=== PATIENT | female | born 1965 | race Caucasian/White ===

== ENCOUNTER 2019-06-29 15:24 | Outpatient (CLI) | payer MEDICARE, OTHER, SELFPAY ==
--- NOTE | ~2019-06-29 | XR_ITS ---
EXAMINATION:XR_CERV2-3V_CR DATE: 06/29/2019 15:59 INDICATION: Neck pain TECHNIQUE: AP, lateral, lateral swimmers and odontoid views of the cervical spine are provided. COMPARISON: None FINDINGS: Alignment is normal. The odontoid is intact. No fracture is identified. Vertebral body heig hts and disk spaces are normal. Prevertebral soft tissues are normal. There is moderate facet osteoar thritis throughout the cervical spine. IMPRESSION: 1. Mild cervical spondylosis without acute findings. Reviewed, dictated and finalized at location A.
== END 2019-06-29 15:25 | disposition home or self-care (01) ==
LOC: CHSIMG 15:29
PROVIDERS: PCP Internal Medicine; Visit Provider Internal Medicine
DX: E07.89 Other specified disorders of thyroid (principal); R13.10 Dysphagia, unspecified; M54.2 Cervicalgia
CPT/HCPCS: 72040

== ENCOUNTER 2019-07-03 07:59 | Outpatient (CLI) | payer MEDICARE, OTHER, SELFPAY ==
--- NOTE | ~2019-07-03 | US_ITS ---
EXAMINATION: US thyroid DATE: 07/03/2019 08:38 INDICATION: Thyroid mass TECHNIQUE: Multiple ultrasound images of the thyroid were obtained. COMPARISON: 05/05/2015 FINDINGS: The right thyroid lobe measures 4.2 x 1.6 x 1.8 cm. The left thyroid lobe measures 3.9 x 1.7 x 1.4 c m. No significant change in multiple small bilateral thyroid nodules. These include a TI RADS 1, 10 mm predominantly cystic nodule in the right thyroid, a couple smaller mixed solid and cystic nodules with microcalcifications (TI-RADS 4, moderately suspicious , FNA if >=1.5 cm, annual followup is >1 c m) measuring 10 mm at the thyroid isthmus and 6 mm in the right thyroid and a few solid hypoechoic no dule without echogenic foci, also TI-RADS 4 measuring up to 4 mm in maximal diameter in the left thyr oid lobe and 7 mm at the right side of the thyroid isthmus. IMPRESSION: 1. No significant interval change in a multinodular goiter, likely benign with no nodules meeting cri teria for biopsy or follow-up. Reviewed, dictated and finalized at location A. IMPRESSION: 1. No significant interval change in a multinodular goiter, likely benign with no nodules meeting criteria for biopsy or follow-up.
== END 2019-07-03 08:00 | disposition home or self-care (01) ==
LOC: CHSIMG 08:04
PROVIDERS: PCP Internal Medicine; Visit Provider Internal Medicine
DX: E07.89 Other specified disorders of thyroid (principal); R13.10 Dysphagia, unspecified; M54.2 Cervicalgia
CPT/HCPCS: 76536

== ENCOUNTER 2019-11-12 15:57 | Outpatient (CLI) | payer MEDICARE, OTHER, SELFPAY ==
--- NOTE | ~2019-11-12 | XR_ITS ---
EXAMINATION: XR hand LT min 3V, XR hand RT min 3V DATE: 11/12/2019 16:31 INDICATION: Primary generalized osteoarthritis. Paresthesias at the bilateral hands. TECHNIQUE: 1. Posteroanterior, oblique and lateral views of the right hand were obtained. 2. Posteroanterior, oblique and lateral views of the left hand were obtained. COMPARISON: None. FINDINGS: Alignment is normal. No fracture. Minimal to mild polyarticular osteoarthritis with typical distribut ion at the radial aspect of the carpus and interphalangeal joints, most prominent at the distal inter phalangeal joints. No erosions to suggest an inflammatory arthritis. Soft tissues are unremarkable. IMPRESSION: 1. Relatively symmetric pattern of minimal to mild polyarticular osteoarthritis with typical distal i nterphalangeal joint predominance at both hands. Reviewed, dictated and finalized at location B. IMPRESSION: 1. Relatively symmetric pattern of minimal to mild polyarticular osteoarthritis with typical distal interphalangeal joint predominance at both hands.
== END 2019-11-12 15:58 | disposition home or self-care (01) ==
PROVIDERS: PCP Internal Medicine; Visit Provider Internal Medicine
DX: M15.0 Primary generalized (osteo)arthritis (principal); R20.2 Paresthesia of skin
CPT/HCPCS: 73130

== ENCOUNTER 2020-10-06 15:45 | Outpatient (CLI) | payer MEDICARE, SELFPAY ==
--- NOTE | ~2020-10-06 | XR_ITS ---
XR lumbar spine 2-3V 10/06/2020 16:23 Indication: Low back pain for 4 days Procedure: 3 views lumbar spine Comparison: 05/17/2011 Findings: There is levocurvature of the lumbar spine. Vertebral body heights are maintained. There ar e surgical changes of anterior and posterior fusion at L4-S1. No evidence for lucency surrounding the screws. There is healed bone graft posterior lateral on both sides. No acute fracture or traumatic m alalignment. Sacral foramen are symmetric. There is bone graft donor site left ilium. Impression: 1: No acute abnormality of the lumbar spine. No significant change from 04/18/2011 Allowing differences of technique. Reviewed, dictated and finalized at location A. Impression: 1: No acute abnormality of the lumbar spine. No significant change from 012 Allowing differences of technique.
[2020-10-06 16:36] LABS: Add Urine Microscopic? YES; Appearance Urine Sl Cloudy (Clear); Basophils Absolute Auto 0.02 K/mm3 (0.00-0.10); Basophils Percent Auto 0.2 % (0.0-1.0); Bilirubin Urine 1+ (Negative); Blood Urine Negative (Negative); Color Urine Yellow (Yellow); Eosinophils Absolute Auto 0.09 K/mm3 (0.02-0.50); Eosinophils Percent Auto 1.1 % (1.0-6.0); Glucose Urine UA Negative (Negative); Hematocrit 39.7 % (35.0-49.0); Hemoglobin 12.5 g/dL (12.0-15.0); Immature Granulocyte Absolute 0.03 K/mm3 (0.00-0.00); Immature Granulocyte Percent A 0.4 % (0.0-0.0); Ketones Urine Negative (Negative); Leukocyte Esterase Ur Negative LEU/UL (Negative); Lymphocytes Absolute Auto 2.36 K/mm3 (1.10-4.50); Lymphocytes Percent Auto 28.5 % (18.0-42.0); Mean Corpuscular HGB Conc 31.5 g/dL (32.0-36.0); Mean Corpuscular Hemoglobin 27.7 pg (27.0-31.0); Mean Corpuscular Volume 87.8 fL (78.0-102.0); Mean Platelet Volume 10.6 fl (9.2-11.8); Monocytes Absolute Auto 0.72 K/mm3 (0.10-0.90); Monocytes Percent Auto 8.7 % (2.0-11.0); Neutrophils Absolute Auto 5.1 K/mm3 (1.7-7.2); Neutrophils Percent Auto 61.1 % (50.0-70.0); Nitrate Urine Negative (Negative); Platelet Count Result 297 K/mm3 (150-420); Protein Urine Trace (Negative); Red Blood Count 4.52 M/mm3 (4.20-5.40); Red Cell Distribution Width 13.7 % (11.6-14.4); Specific Grav Ur >= 1.030 (1.010-1.020); Urobilinogen Urine 0.2 mg/dL (0.2-1.0); White Blood Count 8.3 K/mm3 (4.8-10.8); pH Urine 5.5 (5.0-8.0)
[2020-10-06 16:42] LABS: Bacteria Urine 2+ /hpf; Mucus Urine Heavy /lpf; Squamous Epithelial Cell Urine Moderate /hpf (Few)
[2020-10-06 18:09] LABS: Alanine Aminotransferase 19 U/L (14-59); Albumin Level 3.3 g/dL (3.4-5.0); Alkaline Phosphatase 74 U/L (46-116); Anion Gap 12 mmol/L (8-16); Aspartate Amino Transferase 11 U/L (15-37); Bilirubin,Total 0.4 mg/dL (0.00-1.00); Blood Urea Nitrogen 12 mg/dL (7-18); CRP 0.9 mg/dL (0.0-0.9); Calcium 8.5 mg/dL (8.5-10.1); Carbon Dioxide 25 mmol/L (21-32); Chloride 105 mmol/L (98-108); Estimated Glomerular Filt Rate > 60; Glucose 87 mg/dL (70-99); Osmolality Calculated 292 mOsm/kg (285-295); Potassium 4.2 mmol/L (3.5-5.1); Sodium 142 mmol/L (136-145); Total Protein 6.3 g/dL (6.4-8.2)
== END 2020-10-06 15:46 | disposition home or self-care (01) ==
LOC: CHSLAB 15:48
PROVIDERS: PCP Internal Medicine; Visit Provider Internal Medicine
DX: M54.9 Dorsalgia, unspecified (principal)
CPT/HCPCS: 36415; 72100; 80053; 81001; 85025; 86140

== ENCOUNTER 2020-10-08 09:41 | Outpatient (CLI) | payer MEDICARE, OTHER, SELFPAY ==
--- NOTE | ~2020-10-08 | CT_ITS ---
EXAMINATION: CT abdomen pelvis wo con DATE: 10/08/2020 10:20 INDICATION: Microscopic hematuria, left flank pain TECHNIQUE: Computed tomography (CT) of the abdomen and pelvis was performed without intravenous contr ast. The dose-length product (DLP) was 960.91 mGy-cm. Automated exposure control and iterative recons truction technique were employed. COMPARISON: 06/01/2006 FINDINGS: The lung bases are clear. The heart size is normal. There are small, chronic pleural effusi ons. A tiny pericardial effusion is noted. There is a small sliding hiatal hernia. Within the limitat ions of noncontrast examination, the liver, spleen pancreas, gallbladder, and adrenal glands are norm al. The kidneys are unremarkable. No stones are identified in the kidneys, ureters, or bladder. There is no hydronephrosis or hydroureter. No pathologically enlarged abdominal or pelvic lymph nodes are identified. There is no free intraperitoneal gas or evidence of bowel obstruction. Uterine fibroids a re again noted. A moderate volume of colonic stool is present. There are changes of anterior and post erior fusion from L4 through S1. IMPRESSION: 1. No CT correlate for the patient's symptoms. Reviewed, dictated and finalized at location A.
== END 2020-10-08 09:42 | disposition home or self-care (01) ==
LOC: CHSIMG 09:46
PROVIDERS: PCP Internal Medicine; Visit Provider Internal Medicine
DX: R31.9 Hematuria, unspecified (principal); R10.9 Unspecified abdominal pain
CPT/HCPCS: 74176

== ENCOUNTER 2021-05-21 08:04 | Outpatient (CLI) | payer MEDICARE, OTHER, SELFPAY ==
--- NOTE | ~2021-05-21 | US_ITS ---
EXAMINATION: US pelvic complete w TV DATE: 05/21/2021 09:17 INDICATION: Left lower quadrant pain TECHNIQUE: Multiple transabdominal and endovaginal sonographic images of the pelvis were obtained. COMPARISON: CT, 10/08/2020 FINDINGS: Uterus didelphys is noted. The right uterus measures 6.2 x 2.6 x 3.2 cm with an endometrial complex thickness of 5 mm. The left uterus measures 8.9 x 3.4 x 3.6 cm with an endometrial complex t hickness of 9 mm. There is apparent soft tissue density in the left endocervical canal with internal vascularity. The ovaries are not visualized however no adnexal abnormality is seen. There is no free fluid in the pelvis. IMPRESSION: 1. No sonographic correlate for the patient's symptoms. 2. 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 DEADENER e valuation is recommended. Reviewed, dictated and finalized at location B. [employer]ER IMPRESSION: 1. No sonographic correlate for the patient's symptoms. 2. 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 DEADENER evaluation is recommended.
[2021-05-21 08:21] LABS: Basophils Absolute Auto 0.02 K/mm3 (0.00-0.10); Basophils Percent Auto 0.3 % (0.0-1.0); Eosinophils Absolute Auto 0.11 K/mm3 (0.02-0.50); Eosinophils Percent Auto 1.9 % (1.0-6.0); Hematocrit 40.2 % (35.0-49.0); Hemoglobin 12.4 g/dL (12.0-15.0); Immature Granulocyte Absolute 0.01 K/mm3 (0.00-0.00); Immature Granulocyte Percent A 0.2 % (0.0-0.0); Lymphocytes Absolute Auto 1.77 K/mm3 (1.10-4.50); Lymphocytes Percent Auto 30.6 % (18.0-42.0); Mean Corpuscular HGB Conc 30.8 g/dL (32.0-36.0); Mean Corpuscular Hemoglobin 27.1 pg (27.0-31.0); Monocytes Absolute Auto 0.41 K/mm3 (0.10-0.90); Monocytes Percent Auto 7.1 % (2.0-11.0); Neutrophils Absolute Auto 3.5 K/mm3 (1.7-7.2); Neutrophils Percent Auto 59.9 % (50.0-70.0); Platelet Count Result 330 K/mm3 (150-420); Red Blood Count 4.57 M/mm3 (4.20-5.40); Red Cell Distribution Width 14.3 % (11.6-14.4); White Blood Count 5.8 K/mm3 (4.8-10.8)
[2021-05-21 09:14] LABS: Add Urine Microscopic? NO; Appearance Urine Clear (Clear); Bilirubin Urine Negative (Negative); Blood Urine Negative (Negative); Color Urine Yellow (Yellow); Glucose Urine UA Negative (Negative); Ketones Urine Negative (Negative); Leukocyte Esterase Ur Negative (Negative); Nitrate Urine Negative (Negative); Protein Urine Negative (Negative); Specific Grav Ur 1.015 (1.010-1.020); Urobilinogen Urine 0.2 mg/dL (0.2-1.0); pH Urine 7.5 (5.0-8.0)
[2021-05-21 09:17] LABS: Alanine Aminotransferase 22 U/L (14-59); Albumin Level 3.3 g/dL (3.4-5.0); Alkaline Phosphatase 85 U/L (46-116); Anion Gap 9 mmol/L (8-16); Aspartate Amino Transferase 13 U/L (15-37); Bilirubin,Total 0.6 mg/dL (0.00-1.00); Blood Urea Nitrogen 14 mg/dL (7-18); CRP 0.7 mg/dL (0.0-0.9); Calcium 8.3 mg/dL (8.5-10.1); Carbon Dioxide 28 mmol/L (21-32); Chloride 106 mmol/L (98-108); Cholesterol 199 mg/dL (0-200); Estimated Glomerular Filt Rate > 60; Glucose 99 mg/dL (70-99); HDL Direct 54 mg/dL (40-60); LDL Cholesterol Calculated 124 mg/dL (<130); Osmolality Calculated 296 mOsm/kg (285-295); Potassium 4.3 mmol/L (3.5-5.1); Sodium 143 mmol/L (136-145); Thyroid Stimulating Hormone 2.38 uIU/mL (0.36-3.74); Total Protein 6.6 g/dL (6.4-8.2); Triglycerides 104 mg/dL (0-150)
== END 2021-05-21 08:05 | disposition home or self-care (01) ==
LOC: CHSLAB 08:07
PROVIDERS: PCP Internal Medicine; Visit Provider Internal Medicine
DX: R10.32 Left lower quadrant pain (principal); Z00.00 Encounter for general adult medical examination without abnormal findings; M25.50 Pain in unspecified joint; Z13.6 Encounter for screening for cardiovascular disorders; Z79.899 Other long term (current) drug therapy
CPT/HCPCS: 36415; 76830; 76856; 80053; 80061; 81003; 84443; 85025; 86140

== ENCOUNTER 2021-08-04 15:39 | Outpatient (CLI) | payer MEDICARE, SELFPAY ==
[2021-08-04 16:48] LABS: SARS-CoV-2 RNA PCR Positive (Negative)
== END 2021-08-04 15:40 | disposition home or self-care (01) ==
LOC: CHSLAB 15:42
PROVIDERS: PCP Internal Medicine; Visit Provider Internal Medicine
DX: U07.1 COVID-19 (principal)
CPT/HCPCS: C9803; U0003; U0005

== ENCOUNTER 2021-09-21 00:42 | Day surgery (SDC) | payer MEDICARE, SELFPAY ==
--- NOTE | 2021-09-01 12:51 | PC.NURSE ---
Patient denies any changes in health history since last interview. Times and prep instructions discussed and no questions at this time.
--- NOTE | 2021-09-21 10:42 | WPDANESEPPF ---
Anes - Initial Pre Proc Eval Procedure: Operation Date: 09/21/21 13:00 Proposed Procedures p Screening Colonoscopy - Jerry Colby MD Date/Time: 09/21/21 10:42 Surgeon: Jerry Colby MD Pre Op Diagnosis: neoplasm screening Patient Data Age: 55 Gender: F Height: Weight: Allergies Allergy/AdvReac Type Severity Reaction Status Date / Time gabapentin Allergy Unknown fatigue Verified 09/21/21 11:02 pregabalin Allergy Unknown fatigue Verified 09/21/21 11:02 Home Medications Medication Instructions Recorded Confirmed Type ergocalciferol (vitamin D2) 50 mcg 125 mcg PO DAILY 06/12/21 09/21/21 History (2,000 unit) capsule fluoxetine 40 mg capsule 40 mg PO DAILY 06/12/21 09/21/21 History mecobalamin (vitamin B12) 5,000 5,000 mcg PO DAILY 06/12/21 09/21/21 History mcg disintegrating tablet meloxicam 15 mg tablet 15 mg PO DAILY 06/12/21 09/21/21 History tizanidine 2 mg capsule 2 mg PO TID PRN Pain 06/12/21 09/21/21 History tramadol 50 mg tablet 50 mg PO Q6H PRN Pain 06/12/21 09/21/21 History Patient hx anesthesia problems: none Family hx anesthesia problems: none Results Review: All pre-operative results and documents have been reviewed as part of the pre-operative evaluation. [facility] Past Medical History Medical History Chronic pain Depression associated with fibromyalgia Fibromyalgia History of endometriosis History of hysterosalpingogram 2003 History of miscarriage x 2 Uterus didelphys Surgical History Surgical History History of back surgery 360 fusion 2001 History of bladder surgery History of section x 1 History of dilation and curettage 2005 & 2010 History of intestinal surgery Family History Family History Father Carcinoma of colon Mother Depression Hypertension Sibling Hypertension Depression Grandparent Diabetes mellitus Other Family history of coronary artery disease Social History Social History Smoking status: Never smoker Alcohol intake: current Alcohol use details: socially Substance use: never Living arrangements: with family Spiritual care concerns: No Anes - Eval Final PreProcedure Day of Procedure 09/21/21 10:42 Patient weight: obese Heart: regular rate and rhythm Lungs: clear to auscultation Airway: Mallampati scale class 1 Neurological: alert and oriented Last oral intake: >/= 8 hours ASA classification: III Emergent: no Anesthetic plan: proceed Anesthesia type and monitoring: general GIVS and standard monitoring Results Review: All pre-operative results and documents have been reviewed as part of the pre-operative evaluation. Informed Consent: The patient's anesthetic plan and its attendant risks and benefits were discussed with the patient/family/POA. Questions were solicited and answers provided to the satisfaction of the patient/family/POA.
[2021-09-21 11:03] VITALS: BP 124/79; PULSE 75; RESP 18; TEMP 36.9; O2SAT 98
[2021-09-21] MEDS: LACTATED RINGERS 1,000 ML 150 ML IV CONT (11:05)
--- NOTE | 2021-09-21 11:56 | PM.HPGS ---
History of Present Illness History of Present Illness Consent: Risks, benefits, and alternatives have been discussed and questions answered. Patient agrees to proceed with procedure. Chief complaint: neoplasm screening Narrative: Cheyenne Wiggins is a 55 year old female here for colonoscopy, father had colon cancer Review of Systems Constitutional: Constitutional: Denies headache(s) and Denies weakness Eyes: Eyes: Denies blurry vision ENT: Reports Normal hearing present, Denies headache(s) and Denies neck pain Cardiovascular: Cardiovascular: Denies chest pain and Denies dyspnea Respiratory: Respiratory: Denies dyspnea Gastrointestinal: Gastrointestinal: Reports no additional gastrointestinal complaints Genitourinary: Genitourinary: Denies dysuria Musculoskeletal: Musculoskeletal: Denies neck pain Integumentary/Breasts: Skin/Breast: Denies dry skin Neurologic: Reports Normal hearing present, Denies headache(s) and Denies weakness Psychiatric: Psychiatric: Denies anxiety Endocrine: Endocrine: Denies change in body appearance Hematologic/Lymphatic: Hematologic/Lymphatic: Denies easy bleeding Allergic/Immunologic: Allergic/Immunologic: Denies urticaria PMFSH Past Medical History Medical History Chronic pain Depression associated with fibromyalgia Fibromyalgia History of endometriosis History of hysterosalpingogram 2003 History of miscarriage x 2 Uterus didelphys Surgical History Surgical History History of back surgery 360 fusion 2001 History of bladder surgery History of section x 1 History of dilation and curettage 2005 & 2010 History of intestinal surgery Family History Family History Father Carcinoma of colon Mother Depression Hypertension Sibling Hypertension Depression Grandparent Diabetes mellitus Other Family history of coronary artery disease Social History Social History Smoking status: Never smoker Alcohol intake: current Alcohol use details: socially Substance use: never Living arrangements: with family Spiritual care concerns: No Meds Home Medications and Allergies Home Medications Medication Instructions Recorded Confirmed Type ergocalciferol (vitamin D2) 50 mcg 125 mcg PO DAILY 06/12/21 09/21/21 History (2,000 unit) capsule fluoxetine 40 mg capsule 40 mg PO DAILY 06/12/21 09/21/21 History mecobalamin (vitamin B12) 5,000 5,000 mcg PO DAILY 06/12/21 09/21/21 History mcg disintegrating tablet meloxicam 15 mg tablet 15 mg PO DAILY 06/12/21 09/21/21 History tizanidine 2 mg capsule 2 mg PO TID PRN Pain 06/12/21 09/21/21 History tramadol 50 mg tablet 50 mg PO Q6H PRN Pain 06/12/21 09/21/21 History Allergies Allergy/AdvReac Type Severity Reaction Status Date / Time gabapentin Allergy Unknown fatigue Verified 09/21/21 11:02 pregabalin Allergy Unknown fatigue Verified 09/21/21 11:02 Vital Signs Vital Signs - 24 hr 09/21/21 11:03 Temperature 98.5 F Pulse Rate 75 Respiratory Rate 18 Blood Pressure 124/79 Pulse Oximetry 98 Oxygen Delivery Room Air Exam Const: General: comfortable and no acute distress HENMT: General nose exam: Normal nares present Eyes: General: appearance normal, both eyes and all related structures Neck: Neck: no JVD Resp: Auscultation: clear to auscultation bilaterally Cardio: Rate: regular rate Rhythm: regular rhythm GI: Inspection: non-distended GI Palp: Yes Soft to palpation Skin: General skin exam: normal color Neuro: General: gait normal Speech: normal speech Extrem: General: normal to inspection Psych: Mental Status: mental status grossly normal Assessment and Plan Assessment and plan (1) Family history of colon cancer in father:
--- NOTE | 2021-09-21 11:58 | SUR.PREOP ---
No UPreg needed per Dr. Beauchamp. Narda Lora RN
[2021-09-21 12:18] VITALS: BP 123/85; PULSE 72; RESP 18; O2SAT 97
[2021-09-21 12:28] VITALS: BP 121/70; PULSE 60; RESP 18; O2SAT 97
[2021-09-21 12:38] VITALS: BP 128/84; PULSE 57; RESP 18; O2SAT 98
== END 2021-09-21 12:54 | disposition home or self-care (01) ==
PROVIDERS: PCP Internal Medicine; Visit Provider Internal Medicine Gastroenterology
PROC: 0DJD8ZZ Inspection of Lower Intestinal Tract, Via Natural or Artificial Opening Endoscopic (ICD-10-PCS; CPT 45378; principal; 2021-09-21 13:00)
DX: Z12.11 Encounter for screening for malignant neoplasm of colon (principal); D12.2 Benign neoplasm of ascending colon; K64.8 Other hemorrhoids; Z80.0 Family history of malignant neoplasm of digestive organs; M79.7 Fibromyalgia; F32.A Depression, unspecified; G89.29 Other chronic pain; E66.9 Obesity, unspecified
CPT/HCPCS: 45385; 88305; J2704; J7120

== ENCOUNTER 2021-10-06 15:00 | Outpatient (CLI) | payer MEDICARE, OTHER, SELFPAY ==
--- NOTE | ~2021-10-06 | XR_ITS ---
XR_CERV2-3V_CR 10/06/2021 15:23 Indication: Neck pain Procedure: 4 view cervical spine Comparison: Comparison to multiple prior studies sequentially, with oldest reviewed study dated 06/28. Findings: No fracture or traumatic malalignment. There is moderate multilevel facet hypertrophy. Vert ebral body heights are maintained. No significant disc narrowing. No prevertebral soft tissue swellin g. Odontoid process is unremarkable. Lung apices are within normal limits. Impression: 1: Moderate multilevel facet arthropathy. Reviewed, dictated and finalized at location A. Impression: 1: Moderate multilevel facet arthropathy.
== END 2021-10-06 15:01 | disposition home or self-care (01) ==
LOC: CHSIMG 15:03
PROVIDERS: PCP Internal Medicine; Visit Provider Internal Medicine
DX: M79.601 Pain in right arm (principal); R20.0 Anesthesia of skin; M47.812 Spondylosis without myelopathy or radiculopathy, cervical region
CPT/HCPCS: 72040

== ENCOUNTER 2021-10-13 09:03 | Outpatient (RCR) | payer MEDICARE, SELFPAY ==
--- NOTE | 2021-10-13 10:25 | PTOPEVAL ---
Thank you for referring Cheyenne Wiggins to [facility].? The patient is scheduled to be seen for therapy? __1__x/week for 4 visits. Please review, sign, date and return this plan of care HOWARD. I agree with and certify that the following plan of care is medically necessary. Referring Physician Date Admitting Provider: Attending Provider: Sukhdev Dean MD Referring Provider: *PT Outpatient Evaluation Start: 10/13/21 09:03 Freq: Status: Active Protocol: Document 10/13/21 09:03 [facility] (Rec: 10/13/21 10:22 [id number]) Therapy Assessment Status Assessment Status Assessment Status Evaluation Outpatient Past Medical History Neurological History Hx Migraine Yes Cardiovascular History Hx Cardiac Disorders No Significant History Respiratory History Hx Bronchitis Yes Hx COVID-19 Yes: July 2021 Gastrointestinal History Hx Hemorrhoids Yes Genitourinary History Hx Genitourinary Disorders No Significant History Musculoskeletal History Hx Arthritis Yes Hx Fibromyalgia Yes Hx Spinal Surgery Yes: 360 fusion Hematological History Hx Blood Transfusions Yes Endocrine History Hx Endocrine Disorders No Significant History HEENT History Hx Tonsillectomy Yes Integumentary History Hx Skin Disorders No Significant History Reproductive History Hx Section Yes Hx Endometriosis Yes Psychosocial History Hx Anxiety Yes Hx Depression Yes Pain History History of Any Previous or Ongoing No Significant History Instance of Pain Anesthesia History Hx Anesthesia Reactions No Significant History Evaluation Information Problem Diagnosis neck and low back pain Onset 10/06/21 Subjective Information Pt. describes developed Query Text:As Reported By Patient/ shoulder pain on the right Family over the past several months. She describes pain in the right upper trap, posterior right shoulder and anterior right shoulder. Pt. reports that she has pain with movement of both the neck and shoulder. She did recieve an injection into the shoulder last week without pain relief. she does describe pain in the posterior shoulder with reaching across her body. She
--- NOTE | 2021-11-05 09:25 | PTOPEVAL ---
Thank you for referring Cheyenne Wiggins to [facility].? The patient is scheduled to be seen for therapy? ____x/week for ___ weeks. Please review, sign, date and return this plan of care HOWARD. I agree with and certify that the following plan of care is medically necessary. Referring Physician Date Admitting Provider: Attending Provider: Sukhdev Dean MD Referring Provider: *PT Outpatient Evaluation Start: 10/13/21 09:03 Freq: Status: Active Protocol: Document 11/05/21 08:16 [facility] (Rec: 11/05/21 09:25 [email or web address]) Outpatient Past Medical History Neurological History Hx Migraine Yes Cardiovascular History Hx Cardiac Disorders No Significant History Respiratory History Hx Bronchitis Yes Hx COVID-19 Yes: July 2021 Gastrointestinal History Hx Hemorrhoids Yes Genitourinary History Hx Genitourinary Disorders No Significant History Musculoskeletal History Hx Arthritis Yes Hx Fibromyalgia Yes Hx Spinal Surgery Yes: 360 fusion Hematological History Hx Blood Transfusions Yes Endocrine History Hx Endocrine Disorders No Significant History HEENT History Hx Tonsillectomy Yes Integumentary History Hx Skin Disorders No Significant History Reproductive History Hx Section Yes Hx Endometriosis Yes Psychosocial History Hx Anxiety Yes Hx Depression Yes Pain History History of Any Previous or Ongoing No Significant History Instance of Pain Anesthesia History Hx Anesthesia Reactions No Significant History Evaluation Information Problem Diagnosis neck and low back pain Onset 10/06/21 Additional Evaluation Detail quick dash = 52% functionally declined NDI = 42% functionally declined Subjective Information patient reports she is Query Text:As Reported By Patient/ alright this date. she Family reports she continues to have pain in the neck and R shoulder. she reports she continues to have increased pain with turning her head to the R and leaning away to the L side. she reports she feels she has tightness and like something is pinched in the neck. Pain Assessment Timing of Pain Assessment Timing of Pain Assessment Assessment Pain Scale Pain Scale Used
--- NOTE | 2021-12-03 12:11 | PTOPDC ---
Assessment and note entered by JT File, PT Evaluation Information Assessment Status Discharge Diagnosis neck and low back pain Onset 10/06/21 Subjective Information patient reports she continues to have pain in the R UT/neck. she reports the R hand continues to become tingling at times. she reports she is compliant with her exercises at home, but the massage and passive mobility feels the best to her neck. she reports she did not sleep well last night. Reported Pain Level Pain Score 8,7,8: Self Report Assessment PT Clinical Summary mrs. espinoza presents to skilled PT for her 12th skilled PT visit. as of this date, she presents with no subjctive or objective improvement or progress towards goals. she continues to have unmet goals, pain, and decreased quality of life/ functional activity performance. she would do well to DC skilled PT this date and follow up with her MD regarding next plan of action due to lack of relief of symptoms from skilled PT. Plan of Care Treatment Frequency and DC to independent HEP and MD follow up Duration
== END 2021-12-03 11:12 | disposition home or self-care (01) ==
LOC: CHSPT 09:03
PROVIDERS: PCP Internal Medicine; Visit Provider Internal Medicine
DX: M54.2 Cervicalgia (principal); M54.50 Low back pain, unspecified
CPT/HCPCS: 97014; 97110; 97140; 97161; G0283

== ENCOUNTER → 2021-10-22 10:11 | Outpatient (CLI) | payer MEDICARE, SELFPAY ==
--- NOTE | ~2021-10-22 | MM_ITS ---
EXAMINATION: MM screening [facility] BI w radhika HISTORY: Screening mammogram TECHNIQUE: Craniocaudal and mediolateral oblique 3-D tomosynthesis images were obtained and synthetic 2-D images were generated. CAD analysis was submitted and interpreted. COMPARISON: 12/22/2018, 11/02/2017 BREAST PARENCHYMAL COMPOSITION: The breasts are heterogeneously dense, which may obscure small masses . FINDINGS: There is no suspicious mass, calcification, or architectural distortion to suggest malignan cy in either breast. There has been no suspicious interval change. IMPRESSION: 1. No mammographic evidence of malignancy. 2. Recommend routine screening mammography in one year. BI-RADS Category 1: Negative Reviewed, dictated and finalized at location A.
== END ==
PROVIDERS: PCP Internal Medicine; Visit Provider Student in an Organized Health Care Education/Training Program
DX: Z12.31 Encounter for screening mammogram for malignant neoplasm of breast (principal)
CPT/HCPCS: 77063; 77067

== ENCOUNTER 2022-01-07 09:49 | Outpatient (CLI) | payer MEDICARE, SELFPAY ==
--- NOTE | ~2022-01-07 | XR_ITS ---
XR shoulder RT min 2V DATE: 01/07/2022 10:27 INDICATION: Fall on 12/25/2021. Lateral shoulder pain TECHNIQUE: 5 views COMPARISON: None FINDINGS: No fracture or dislocation, periosteal reaction or bone destruction or abnormal soft tissue calcification. Normal alignment at the acromioclavicular and glenohumeral joints. IMPRESSION: Negative Reviewed, dictated and finalized at location A. IMPRESSION: Negative
--- NOTE | ~2022-01-07 | XR_ITS ---
XR hand RT min 3V DATE: 01/07/2022 10:29 INDICATION: Fall. Right hand injury, pain TECHNIQUE: 3 views COMPARISON: None FINDINGS: No fracture or dislocation, periosteal reaction or bone destruction or erosive change. IMPRESSION: No significant abnormality Reviewed, dictated and finalized at location A. IMPRESSION: No significant abnormality
--- NOTE | ~2022-01-07 | XR_ITS ---
XR wrist RT min 3V DATE: 01/07/2022 10:28 INDICATION: Fall. Right wrist injury, pain TECHNIQUE: 4 views COMPARISON: None FINDINGS: No fracture or dislocation, periosteal reaction or bone destruction, joint space narrowing, erosive change or chondrocalcinosis. IMPRESSION: Negative Reviewed, dictated and finalized at location A. IMPRESSION: Negative
--- NOTE | ~2022-01-07 | XR_ITS ---
XR forearm RT 2V DATE: 01/07/2022 10:27 INDICATION: Fall. Right forearm pain TECHNIQUE: AP and lateral views COMPARISON: None FINDINGS: No fracture or dislocation, periosteal reaction or bone destruction. Normal alignment and p reservation of joint spaces at the elbow and wrist joint IMPRESSION: Negative Reviewed, dictated and finalized at location A. IMPRESSION: Negative
== END 2022-01-07 09:50 | disposition home or self-care (01) ==
LOC: CHSIMG 09:52
PROVIDERS: PCP Internal Medicine; Visit Provider Internal Medicine
DX: M79.601 Pain in right arm (principal)
CPT/HCPCS: 73030; 73090; 73110; 73130

== ENCOUNTER 2022-04-03 06:52 | Outpatient (CLI) | payer MEDICARE, MEDICAID, SELFPAY ==
--- NOTE | ~2022-04-03 | MR_ITS ---
EXAMINATION: MR shoulder RT wo con DATE: 04/03/2022 09:36 INDICATION: RIGHT SHOULDER PAIN, loss of range of motion status post fall 8 months ago. TECHNIQUE: Magnetic resonance imaging (MRI) of the right shoulder was performed without intravenous c ontrast. Sequences included axial PD-weighted FS FSE, coronal oblique PD-weighted FS FSE and T2-weigh kristin FS FSE, and sagittal oblique T2-weighted FS FSE and T1-weighted FSE. COMPARISON: X-ray right shoulder 01/07/2022. FINDINGS: Coracoacromial arch: Mild anterolateral downsloping of the type I acromion. Borderline subacromial narrowing. No subcoraco id narrowing. Moderate AC joint hypertrophy with mild inferior osteophytosis. Mild inferior acromial tip enthesopathy. Rotator cuff: Focal areas of distal supraspinatus and infraspinatus tendinopathy, without focal defect. Minimal ken ear high signal within the musculotendinous junction of the infraspinatus. The teres minor and subsca pularis are intact. Biceps tendon and glenoid labrum: Intact. Fluid: Minimal subacromial subdeltoid fluid. Bones/cartilage: Unremarkable. Subcortical degenerative cystic change in the superolateral aspect of the humeral head. Mild glenohumeral narrowing. IMPRESSION: 1. Mild intrasubstance type tear of the infraspinatus. Mild focal tendinopathy in the distal supraspi natus and infraspinatus tendons. 2. Mild subacromial subdeltoid bursitis. 3. Mild osseous outlet compromise. 4. Moderate AC joint hypertrophy. Mild glenohumeral osteoarthritis. Reviewed, dictated and finalized at location K. [employer]IST[employer] IMPRESSION: 1. Mild intrasubstance type tear of the infraspinatus. Mild focal tendinopathy in the distal supraspinatus and infraspinatus tendons. 2. Mild subacromial subdeltoid bursitis. 3. Mild osseous outlet compromise. 4. Moderate AC joint hypertrophy. Mild glenohumeral osteoarthritis.
--- NOTE | ~2022-04-03 | MR_ITS ---
EXAMINATION: MR cervical spine wo con DATE: 04/03/2022 09:37 INDICATION: Cervical radiculopathy. Right shoulder pain. TECHNIQUE: Magnetic resonance imaging (MRI) of the cervical spine was performed without intravenous c ontrast. Sequences included sagittal T2-weighted FSE, sagittal T2-weighted FS FSE, sagittal T1-weight ed FSE, axial MERGE, and axial T2-weighted FSE. COMPARISON: Cervical spine MRI 10/23/2004 FINDINGS: There is hypolordosis of cervical spine. Vertebral body heights are normal. Intervertebral disc heights are normal. The spinal cord signal intensity is normal. The following disc levels are sp ecifically discussed: C2-C3: The disc does not extend beyond the endplate margin. There is no uncovertebral joint osteoarth ritis. There is mild right facet joint osteoarthritis. There is ankylosis of left facet joint with se debbie hypertrophy. There is mild left neural foraminal stenosis. There is no central canal stenosis. C3-C4: There is a central protrusion. There is moderate bilateral uncovertebral joint osteoarthritis. There is severe bilateral facet joint osteoarthritis. There is mild bilateral neural foraminal steno sis. There is mild central canal stenosis. C4-C5: The disc does not extend beyond the endplate margin. There is no uncovertebral joint osteoarth ritis. There is severe bilateral facet joint osteoarthritis. There is no neural foraminal stenosis. T here is no central canal stenosis. C5-C6: There is a central protrusion. There is no uncovertebral joint osteoarthritis. There is modera te right and severe left facet joint osteoarthritis. There is mild bilateral neural foraminal stenosi s. There is mild central canal stenosis. C6-C7: The disc is bulging. There is no uncovertebral joint osteoarthritis. There is moderate right a nd severe left facet joint osteoarthritis. There is mild lateral neural foraminal stenosis. There is mild central canal stenosis. C7-T1: The disc does not extend beyond the endplate margin. There is no uncovertebral joint osteoarth ritis. There is moderate bilateral facet joint osteoarthritis. There is mild right neural foraminal s tenosis. There is no central canal stenosis. IMPRESSION: 1. Mild cervical spondylosis, worsened from 10/23/2004. Reviewed, dictated and finalized at location A. H ASIAN HISTORY PROFESSOR
== END 2022-04-03 06:53 | disposition home or self-care (01) ==
LOC: CHSIMG 06:55
PROVIDERS: PCP Internal Medicine; Visit Provider Internal Medicine
DX: M25.511 Pain in right shoulder (principal); S46.811A Strain of other muscles, fascia and tendons at shoulder and upper arm level, right arm, initial encounter; M75.51 Bursitis of right shoulder; M19.011 Primary osteoarthritis, right shoulder; M43.02 Spondylolysis, cervical region
CPT/HCPCS: 72141; 73221

== ENCOUNTER 2022-07-13 13:29 | Outpatient (RCR) | payer MEDICARE, MEDICAID, SELFPAY ==
--- NOTE | 2022-07-13 14:50 | PTOPEVAL1 ---
Assessment and note entered by JT File, PT Evaluation Information Assessment Status Evaluation Diagnosis R shoulder, neck pain Subjective Information patient reports last year her shoulder began bothering her in the summer. she reports she fell and jammed her shoulder forward. she reports she saw the MD after the fall and had xrays. she reports the R shoulder has been bothering since. she reports the neck pain has been going on about as long as the neck pain. she reports she does have numbness and tingling in the entire R hand. she reports she is more tight today. she reports she has increased pain with movement of the R arm (shoulder pain when moving arm backwards). she reports she has increased numbness and tingling without a known change, but reports she did drive a lot yesterday in [place]. she had an injection on tuesday of last week. she reports no relief of symptoms or pain since this injection. Reported Pain Level Pain Score 8,8: Self Report Assessment PT Clinical Summary mrs. espinoza is a 56 yo woman who presents to skilled PT for R shoulder and neck pain. she has been seen for shoulder and neck pain in the past, but has recently had an injection to aid in pain reduction/inflamation reduction. she continues to have pain, weakness of the R shoulder, decreased R shoulder and neck rom, and radicular R arm symptoms. she would benefit from continued skilled PT to trial therapy in conjunction with injection /medication to decrease pain and achieve goals to return to her prior level functional activity performance/quality of life. Plan of Care Interventions Electrical Stimulation,Hot Pack/Cold Pack,Manual Therapy,Mechanical Traction,Neuro Re-education, Patient/Caregiver Educati,Therapeutic Activities, Therapeutic Exercise PT Services Indicated Yes Treatment Frequency and 2x weekly for 6 visits Duration These treatments will address the objective and functional deficits as defined above. The patient will be advanced safely and appropriately in order for the patient to progress towards his/her prior level of function. Additional exercises will be introduced and as well as a comprehensive home exercise program upon discharge, if needed, ?to ensure carryover of functional gains achieved in the clinic. This treatment plan has been reviewed and agreement upon by the patient.
--- NOTE | 2022-07-28 09:55 | PTOPREEVAL ---
Assessment and note entered by JT File, PT Evaluation Information Assessment Status Re-evaluation Diagnosis R shoulder, neck pain Onset 07/11/22 Subjective Information patient reports she is sore and tight today. she reports she has had a major change in her home life with her grandkids and she reportedly is stressed. however, she has had more numbness/ tingling and pain in the R shoulder. she also reports she has been doing more dishes and home care at home. she reports she has an appointment scheduled with a shoulder surgeon coming up soon. Reported Pain Level Pain Score 7,9: Self Report Assessment PT Clinical Summary mrs. espinoza presents to skilled PT services for her 6th skilled therapy visit. until this week, patient was making progress in therapy and was noting redcued pain and radicular symptoms. however, this week, and especially today her shoulder pain/neck pain is back, and he radicular R arm symptoms have returned. she presents today with some unexplained R radicular symptoms increased with posterior shoulder palpation. she has also had an increase in stress at home. as of this date, he has only met goals for ROM and HEP performance. she will hold therapy until appointment with shoulder surgeon to evaluate next course of action. Plan of Care Interventions Electrical Stimulation,Hot Pack/Cold Pack,Manual Therapy,Mechanical Traction,Neuro Re-education, Patient/Caregiver Educati,Therapeutic Activities, Therapeutic Exercise PT Services Indicated Yes Treatment Frequency and hold therapy Duration These treatments will address the objective and functional deficits as defined above. The patient will be advanced safely and appropriately in order for the patient to progress towards his/her prior level of function. Additional exercises will be introduced and as well as a comprehensive home exercise program upon discharge, if needed, ?to ensure carryover of functional gains achieved in the clinic. This treatment plan has been reviewed and agreement upon by the patient.
--- NOTE | 2022-10-14 15:13 | PCPTNOTE ---
Patient being discharged at this time due to lack of progress towards goals and follow up with surgeon.
== END 2022-07-28 23:59 | disposition home or self-care (01) ==
LOC: CHSPT 13:29
PROVIDERS: PCP Internal Medicine; Visit Provider Internal Medicine
DX: M54.2 Cervicalgia (principal); M25.511 Pain in right shoulder
CPT/HCPCS: 97012; 97110; 97140; 97161

== ENCOUNTER → 2022-12-30 11:24 | Outpatient (CLI) | payer MEDICARE, MEDICAID, SELFPAY ==
--- NOTE | ~2022-12-30 | MM_ITS ---
EXAMINATION: MM screening petty BI w radhika HISTORY: Screening TECHNIQUE: Craniocaudal and mediolateral oblique 3-D tomosynthesis images were obtained and synthetic 2-D images were generated. CAD analysis was submitted and interpreted. COMPARISON: Comparison to multiple prior studies sequentially, with oldest reviewed study dated 11/02. BREAST PARENCHYMAL COMPOSITION: There are scattered areas of fibroglandular density. FINDINGS: There is no evidence of suspicious mass, calcification, or architectural distortion to sugg est malignancy in either breast. There has been no suspicious interval change. IMPRESSION: 1. No mammographic evidence of malignancy. 2. Recommend routine screening mammography in one year. BI-RADS Category 1: Negative Reviewed, dictated and finalized at location A.
== END ==
PROVIDERS: PCP Internal Medicine; Visit Provider Obstetrics & Gynecology
DX: Z12.31 Encounter for screening mammogram for malignant neoplasm of breast (principal)
CPT/HCPCS: 77063; 77067

== ENCOUNTER 2023-02-25 10:00 | Outpatient (RCR) | payer MEDICARE, MEDICAID, SELFPAY ==
--- NOTE | 2023-02-25 11:13 | OPREHPOC ---
Outpatient Therapy Plan of Care This is a Multidisciplinary Plan of Care that may contain components documented by all disciplines (PT, OT, and ST.) PT Problem 1 PT Problem #1 Knowledge Deficit PT Goal 1 Goal 1. independent and compliant with HEP Target Visit 6 PT Problem 2 PT Problem #2 Pain PT Goal 1 Goal 1. decrease pain in the R shoulder to 4/10 or less 2. decrease pain in the R knee to 2/10 or less Target Visit 12 PT Problem 3 PT Problem #3 Impaired Range of Motion PT Goal 1 Goal 1. improve R shoulder active flexion to 155 degrees or better 2. improve R shoulder active IR to 60 degrees or better Target Visit 12 PT Problem 4 PT Problem #4 Impaired Strength PT Goal 1 Goal 1. improve R shoulder strength to 4+/5 or better overall Target Visit 12 PT Problem 5 PT Problem #5 Impaired Functional Mobil PT Goal 1 Goal 1. patient to report sleeping through the night 4 nights a week or more 2. patient to tolerate driving for up to 1 hour without increased R shoulder symptoms 3. patient to walk around grocery store with no increased pain in the R knee Target Visit 12
--- NOTE | 2023-02-25 11:13 | PTOPEVAL1 ---
Assessment and note entered by JT File, PT Evaluation Information Assessment Status Evaluation Diagnosis R knee meniscus tear, R rotator cuff tendonitis Onset 02/21/23 Subjective Information patient reports nathaly helped get her shoulder through the football season. she reports she got another one about 1.5 months ago. she reports her injections last less and less time every time she gets it. she reports she is now unable to sleep due to pain in the R shoulder. she reports she has increased pain with all movement and even using her phone. she reports she did have an MRI noting inflamation to the bursa, rotator cuff, and showing bone spurs. she reports the R knee grinds and feels like it will give out on her. she reports both knees are bad, but the R knee is the worst. she reports she is going to have an MRI on the R knee next week. she reports pain is increased in the R knee with sitting, standing, walking, and all activities. she reports she knows she needs surgery on the R shoulder, but does not want surgery on the R knee. she reports she is waiting til the new year to have surgery on the R shoulder. Reported Pain Level Pain Score 9,5: Self Report Assessment PT Clinical Summary mrs. espinoza is a 57 yo woman who presents to skilled PT with R knee and R shoulder pain. she presents with worse R shoulder rather than R knee pain. she displays decreased R shoulder active rom, R shoulder weakness, and deficits in sleeping/ functional abilities of the R shoulder. she also presents with deficits in R knee functional performance. she would benefit from continued skilled PT to address her R shoulder and knee objective/functional deficits to improve her quality of life and return to prior level activity performance. Plan of Care Interventions Electrical Stimulation,Hot Pack/Cold Pack,Manual Therapy,Neuro Re-education,Patient/Caregiver Educati,Therapeutic Activities,Therapeutic Exercise PT Services Indicated Yes Treatment Frequency and continue skilled PT 3x weekly for 12 visits Duration These treatments will address the objective and functional deficits as defined above. The patient will be advanced safely and appropriately in order for the patient to progress towards his/her prior level of function. Additional exercises will be introduced and as well as a comprehensive home exercise program upon discharge, if nee
--- NOTE | 2023-03-22 11:50 | PCPTNOTE ---
Patient cancelled appointment today due to illness.
--- NOTE | 2023-04-01 10:39 | PCPTNOTE ---
Patient cancelled session today. She reports she has to take her to an appointment and cannot make it today.
--- NOTE | 2023-04-12 10:19 | OPREHPOC ---
Outpatient Therapy Plan of Care This is a Multidisciplinary Plan of Care that may contain components documented by all disciplines (PT, OT, and ST.) PT Problem 1 PT Problem #1 Knowledge Deficit PT Goal 1 Goal 1. independent and compliant with HEP Target Visit 6 Progress Met PT Problem 2 PT Problem #2 Pain PT Goal 1 Goal 1. decrease pain in the R shoulder to 4/10 or less 2. decrease pain in the R knee to 2/10 or less Target Visit 12 Progress Not Met PT Problem 3 PT Problem #3 Impaired Range of Motion PT Goal 1 Goal 1. improve R shoulder active flexion to 155 degrees or better. met 2. improve R shoulder active IR to 60 degrees or better Target Visit 12 Progress Partially Met PT Problem 4 PT Problem #4 Impaired Strength PT Goal 1 Goal 1. improve R shoulder strength to 4+/5 or better overall Target Visit 12 Progress Not Met PT Problem 5 PT Problem #5 Impaired Functional Mobil PT Goal 1 Goal 1. patient to report sleeping through the night 4 nights a week or more 2. patient to tolerate driving for up to 1 hour without increased R shoulder symptoms 3. patient to walk around grocery store with no increased pain in the R knee Target Visit 12 Progress Not Met
--- NOTE | 2023-04-12 10:19 | PTOPPROGNS ---
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 she reports rain and cold weather maker her symptoms worse, as well as, increased activity makes her symptoms worse. she reports the R knee will swell at times still. she reports she would like to be able to walk around the block for exercise. she reports she is scheduled to have R shoulder surgery on 05/05/23. Assessment PT Clinical Summary mrs. espinoza presents to skilled PT for her 10th skilled therapy visit for R shoulder and R knee pain. 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 she continues to have significant pain in the R shoulder and R knee. she is tender to palpation of the R knee both medially and laterally. her R shoulder rom and strength are improved, and her R knee strength and hip strength are improved. she is planning to have R shoulder surgery on 05/05/23. she has made progress towards goals, noting achievement of HEP goal, and partial achievement of rom goals. she continues to have not met strength and functional goals. she would benefit from continued skilled PT to address her remaining unmet goals and functional decline. plan to use the rest of the visits per initial POC. Plan of Care Interventions Electrical Stimulation,Hot Pack/Cold Pack,Manual Therapy,Neuro Re-education,Patient/Caregiver Educati,Therapeutic Activities,Therapeutic Exercise PT Services Indicated Yes Treatment Frequency and continue skilled PT per initial POC for 2 more Duration visits These treatments will address the objective and functional deficits as defined above. The patient will be advanced safely and appropriately in order for the patient to progress towards his/her prior level of function. Additional exercises will be introduced and as well as a comprehensive home exercise program upon discharge, if needed, ?to ensure carryover of functional gains achieved in the clinic. This treatment plan has been reviewed and agreement upon by the patient.
--- NOTE | 2023-04-20 10:56 | OPREHPOC ---
Outpatient Therapy Plan of Care This is a Multidisciplinary Plan of Care that may contain components documented by all disciplines (PT, OT, and ST.) PT Problem 1 PT Problem #1 Knowledge Deficit PT Goal 1 Goal 1. independent and compliant with HEP Target Visit 6 Progress Met PT Problem 2 PT Problem #2 Pain PT Goal 1 Goal 1. decrease pain in the R shoulder to 4/10 or less 2. decrease pain in the R knee to 2/10 or less Target Visit 12 Progress Not Met PT Problem 3 PT Problem #3 Impaired Range of Motion PT Goal 1 Goal 1. improve R shoulder active flexion to 155 degrees or better. met 2. improve R shoulder active IR to 60 degrees or better. met Target Visit 12 Progress Met PT Problem 4 PT Problem #4 Impaired Strength PT Goal 1 Goal 1. improve R shoulder strength to 4+/5 or better overall Target Visit 12 Progress Not Met PT Problem 5 PT Problem #5 Impaired Functional Mobil PT Goal 1 Goal 1. patient to report sleeping through the night 4 nights a week or more 2. patient to tolerate driving for up to 1 hour without increased R shoulder symptoms 3. patient to walk around grocery store with no increased pain in the R knee Target Visit 12 Progress Not Met
--- NOTE | 2023-04-20 10:56 | PTOPREEVAL ---
Assessment and note entered by JT File, PT Evaluation Information Assessment Status Re-evaluation Diagnosis R knee meniscus tear, R rotator cuff tendonitis Onset 02/21/23 Subjective Information patient reports she is still planning on having surgery on the R shoulder on 05/05/23. she reports today, the R shoulder bothered her while trying to brush her teeth, but reports the R knee is a little worse overall today. Reported Pain Level Pain Score 8,7: Self Report Assessment PT Clinical Summary mrs. espinoza presents to skilled PT services for her 12th skilled PT visit for the R shoulder and R knee. she has made progressed in rom of the R shoulder, but continues to be weak and have both R shoulder and R knee pain. she has met goals for HEP performance and rom, but continues to lack achievement of goals for functional activity performance, strength, and pain. she is planning to have R shoulder surgery first on 05/05/23. patient will more than likely require skilled PT after shoulder surgery. until surgery, therapy will hold, and patient will continue with HEP independent. Plan of Care Interventions Electrical Stimulation,Hot Pack/Cold Pack,Manual Therapy,Neuro Re-education,Patient/Caregiver Educati,Therapeutic Activities,Therapeutic Exercise PT Services Indicated Yes Treatment Frequency and hold therapy until post op R shoulder surgery. Duration These treatments will address the objective and functional deficits as defined above. The patient will be advanced safely and appropriately in order for the patient to progress towards his/her prior level of function. Additional exercises will be introduced and as well as a comprehensive home exercise program upon discharge, if needed, ?to ensure carryover of functional gains achieved in the clinic. This treatment plan has been reviewed and agreement upon by the patient.
== END 2023-04-20 20:00 | disposition home or self-care (01) ==
LOC: CHSPT 10:00
PROVIDERS: Visit Provider Nurse Practitioner Family
DX: S83.241D Other tear of medial meniscus, current injury, right knee, subsequent encounter (principal); M75.81 Other shoulder lesions, right shoulder
CPT/HCPCS: 97014; 97110; 97140; 97162; G0283

== ENCOUNTER 2023-04-01 13:45 | Emergency (ER) | payer MEDICARE, MEDICAID, SELFPAY ==
[2023-04-01] VITALS (8 sets, daily range): BP systolic 128–148; BP diastolic 53–72; PULSE 65–80; RESP 12–20; TEMP 36.8; O2SAT 96–100
--- NOTE | ~2023-04-01 | XR_ITS ---
EXAMINATION: XR chest 1V portable DATE: 04/01/2023 14:45 INDICATION: Left chest pain. TECHNIQUE: A single frontal view of the chest was obtained. COMPARISON: Left rib radiographs 11/16/2012 FINDINGS: There is no pneumonia, pleural effusion, or pneumothorax. The heart size is normal. IMPRESSION: 1. No acute cardiopulmonary disease. Reviewed, dictated and finalized at location E. T ROCK LAYER
--- NOTE | 2023-04-01 14:00 | ECG_ITS ---
Measurements Intervals [place] Rate: 72 P: 24 DE: 143 QRS: 31 QRSD: 105 T: 51 QT: 399 QTc: 438 Interpretive Statements SINUS RHYTHM DELAYED PRECORDIAL R/S TRANSITION BORDERLINE ECG NO PREVIOUS ECG AVAILABLE FOR COMPARISON Electronically Signed On 04-04-2023 6:56:38 LOCKSTITCH COLLAR SETTER by Clifton Warner D.O.
--- NOTE | 2023-04-01 14:11 | ED.CHESTPAIN ---
HPI - Chest Pain General Chief Complaint: Chest Pain Stated Complaint: chest pain Time Seen by Provider: 04/01/23 14:09 Source: patient Mode of arrival: ambulatory Limitations: no limitations History of Present Illness HPI narrative: 57 years old white female came to the emergency room by private car with complaining of left chest pain focalized 1 spot, tender to touch, intermittent for the last 7 days. Patient been doing physical therapy for the right shoulder over the last few weeks. Patient been cleaning and working at home more often lately. She denies any shortness of breath, fever, chills, nausea, vomiting, back pain. Patient reported the pain comes and lasts for few seconds each time. Worse with certain movement. Patient very anxious and worried about everything. History of fibromyalgia Related Data Home Medications Medication Instructions Recorded Confirmed ergocalciferol (vitamin D2) 50 mcg 125 mcg PO DAILY 06/12/21 07/23/22 (2,000 unit) capsule fluoxetine 40 mg capsule 40 mg PO DAILY 06/12/21 07/23/22 mecobalamin (vitamin B12) 5,000 5,000 mcg PO DAILY 06/12/21 07/23/22 mcg disintegrating tablet meloxicam 15 mg tablet 15 mg PO DAILY 06/12/21 07/23/22 tizanidine 2 mg capsule 2 mg PO TID PRN Pain 06/12/21 07/23/22 tramadol 50 mg tablet 50 mg PO Q6H PRN Pain 06/12/21 07/23/22 duloxetine 20 mg capsule,delayed 20 mg PO BID 07/21/22 07/23/22 release Allergies Allergy/AdvReac Type Severity Reaction Status Date / Time gabapentin Allergy Unknown fatigue Verified 07/21/22 12:36 pregabalin Allergy Unknown fatigue Verified 07/21/22 12:36 Review of Systems Review of Systems: All systems reviewed & are unremarkable except as noted in HPI and below PMFSH Past Medical History Medical History Chronic pain Depression associated with fibromyalgia Fibromyalgia History of endometriosis History of hysterosalpingogram 2003 History of miscarriage x 2 Uterus didelphys Surgical History Surgical History History of back surgery 360 fusion 2000 History of bladder surgery History of section x 1 History of dilation and curettage 2004 & 2009 History of intestinal surgery Hx of tonsillectomy Family History Family History Father Carcinoma of colon Mother Depression Hypertension Sibling Hypertension Depression Grandparent Diabetes mellitus Other Family history of coronary artery disease Social History Social History Smoking status: Never smoker Alcohol intake: current Alcohol use details: socially Substance use: never Living arrangements: with family Spiritual care concerns: No Exam Narrative: General appearance: Well-developed, well-nourished Skin: Normal color Head: Normocephalic, nontraumatic Eyes: Clear conjunctiva ENT: Oropharynx normal, ears normal, nose normal Neck: Supple, nontender Chest and respiratory: Airway patent, no respiratory distress, no accessory muscle use, localized tenderness 4 cm x 4 cm at the left upper chest. No bruises, no swelling, no rash Heart: Regular rate/rhythm Abdomen: Soft, nontender, no organomegaly, quiet bowel sounds Vascular: Normal peripheral pulses, normal capillary refill. Musculoskeletal: Normal range of motion, nontender back Neurologic: Alert and oriented ?3, GRIPPER INSTALLER is normal as tested, no gross motor deficit Course Reevaluation(s) Reevaluation #1: less anxious compared to on arrival to the ED Date: 04/01/23 Time: 15:20 Vit
[2023-04-01 14:51] LABS: D Dimer 0.19 mg/L (0.19-0.50); INR 0.9; Partial Thromboplastin Time 27.3 SEC (23.90-30.70); Prothrombin Time 10.3 Seconds (9.50-12.10)
[2023-04-01 14:53] LABS: Alanine Aminotransferase 19 U/L (14-59); Alkaline Phosphatase 109 U/L (46-116); Anion Gap 9 mmol/L (8-16); Aspartate Amino Transferase 12 U/L (15-37); Bilirubin,Total 0.5 mg/dL (0.00-1.00); Blood Urea Nitrogen 16 mg/dL (7-18); Carbon Dioxide 28 mmol/L (21-32); Chloride 101 mmol/L (98-108); Estimated CRCL calculation 113 ml/min; Estimated Glomerular Filt Rate > 60; Glucose 133 mg/dL (70-99); NT Pro B Type Natriuretic Pept 116 pg/mL (0-125); Osmolality Calculated 289 mOsm/kg (285-295); Potassium 3.6 mmol/L (3.5-5.1); Sodium 138 mmol/L (136-145); Total Protein 6.5 g/dL (6.4-8.2)
[2023-04-01 14:55] LABS: Basophils Absolute Auto 0.03 K/mm3 (0.00-0.10); Basophils Percent Auto 0.4 % (0.0-1.0); Eosinophils Absolute Auto 0.13 K/mm3 (0.02-0.50); Eosinophils Percent Auto 1.7 % (1.0-6.0); Hematocrit 38.8 % (35.0-49.0); Hemoglobin 11.9 g/dL (12.0-15.0); Immature Granulocyte Absolute 0.03 K/mm3 (0.00-0.00); Immature Granulocyte Percent A 0.4 % (0.0-0.0); Lymphocytes Absolute Auto 2.35 K/mm3 (1.10-4.50); Lymphocytes Percent Auto 30.2 % (18.0-42.0); Mean Corpuscular HGB Conc 30.7 g/dL (32.0-36.0); Mean Corpuscular Volume 84.7 fL (78.0-102.0); Mean Platelet Volume 11.2 fl (9.2-11.8); Monocytes Absolute Auto 0.55 K/mm3 (0.10-0.90); Monocytes Percent Auto 7.1 % (2.0-11.0); Neutrophils Absolute Auto 4.7 K/mm3 (1.7-7.2); Neutrophils Percent Auto 60.2 % (50.0-70.0); Platelet Count Result 346 K/mm3 (150-420); Red Blood Count 4.58 M/mm3 (4.20-5.40); White Blood Count 7.8 K/mm3 (4.8-10.8)
== END 2023-04-01 15:15 | disposition home or self-care (01) ==
LOC: CHSED 15:11
PROVIDERS: Emergency Provider Emergency Medicine; PCP Internal Medicine
DX: R07.89 Other chest pain (principal); F41.9 Anxiety disorder, unspecified; M79.7 Fibromyalgia
CPT/HCPCS: 36415; 71045; 80053; 83880; 84484; 85025; 85380; 85610; 85730; 93005; 99284

== ENCOUNTER 2023-06-15 10:32 | Outpatient (RCR) | payer MEDICARE, SELFPAY ==
[2023-06-15 10:59] VITALS: BP_SYST 90
--- NOTE | 2023-06-15 12:09 | OPREHPOC ---
Outpatient Therapy Plan of Care This is a Multidisciplinary Plan of Care that may contain components documented by all disciplines (PT, OT, and ST.) PT Problem 1 PT Problem #1 Knowledge Deficit PT Goal 1 Goal The patient will be independent in a home exercise program. Target Visit 6 PT Problem 2 PT Problem #2 Pain PT Goal 1 Goal The patient will report no greater than 3/10 right shoulder pain with all daily activities. Target Visit 12 PT Problem 3 PT Problem #3 Impaired Range of Motion PT Goal 1 Goal The patient will demonstrate at least 150 degrees right shoulder flexion AROM to improve overhead reaching ability. The patient will demonstrate functional IR to T8 to improve dressing ability. The patient will demonstrate functional ER to T2 to improve ability to wash/groom her hair. Target Visit 12 PT Problem 4 PT Problem #4 Impaired Strength PT Goal 1 Goal The patient will demonstrate at least 4/5 right shoulder strength to return to previous level of function. Target Visit 12 PT Problem 5 PT Problem #5 Impaired Functional Mobil PT Goal 1 Goal The patient will demonstrate 30% or less self perceived disability per the Quick DASH. Target Visit 12
--- NOTE | 2023-06-15 12:10 | PTOPEVAL1 ---
Assessment and note entered by Ruby Conway, PT Evaluation Information Assessment Status Evaluation Diagnosis R RCR, DCE, biceps tenodesis Onset 05/05/23 Subjective Information Cheyenne Wiggins reports that she had her right rotator cuff repair, distal clavicle excision, and biceps tenodesis on 05/05/23. She injured her right shoulder as a result of 2 different falls and general wear and tear. She reports she was in a sling for the first 4 weeks. She now does not wear the sling and can not lift more than a cup of coffee. She has been performing pendulums and table slides on her own. She notes mild to moderate pain depending on how much she moves her right arm. She also is scheduled to have a knee surgery on 01/03. Reported Pain Level Pain Score 4: Self Report Assessment PT Clinical Summary Cheyenne Wiggins presents 6 weeks s/p right rotator cuff repair, distal clavicle excision, and biceps tenodesis. She has difficulty with moving the right arm, lifting, and carrying. She objectively demonstrates decreased right shoulder active and passive ROM. Right shoulder strength was not tested today due to post op precautions but is likely decreased as well. She will benefit from skilled PT to address these limitations. Plan of Care Interventions Electrical Stimulation,Hot Pack/Cold Pack,Manual Therapy PT Services Indicated Yes Treatment Frequency and 2 times a week for 12 visits Duration These treatments will address the objective and functional deficits as defined above. The patient will be advanced safely and appropriately in order for the patient to progress towards his/her prior level of function. Additional exercises will be introduced and as well as a comprehensive home exercise program upon discharge, if needed, ?to ensure carryover of functional gains achieved in the clinic. This treatment plan has been reviewed and agreement upon by the patient.
[2023-07-06 13:05] VITALS: BP_SYST 90
--- NOTE | 2023-07-06 16:45 | OPREHPOC ---
Outpatient Therapy Plan of Care This is a Multidisciplinary Plan of Care that may contain components documented by all disciplines (PT, OT, and ST.) PT Problem 1 PT Problem #1 Knowledge Deficit PT Goal 1 Goal The patient will be independent in a home exercise program. Target Visit 8 Progress Partially Met Comment continue for knee PT Problem 2 PT Problem #2 Pain PT Goal 1 Goal The patient will report no greater than 3/10 right shoulder pain with all daily activities. The patient will report no greater than 2/10 pain in the R knee with daily activities. Target Visit 12 PT Problem 3 PT Problem #3 Impaired Range of Motion PT Goal 1 Goal The patient will demonstrate at least 150 degrees right shoulder flexion AROM to improve overhead reaching ability. The patient will demonstrate functional IR to T8 to improve dressing ability. The patient will demonstrate functional ER to T2 to improve ability to wash/groom her hair. The patient will demonstrate 0 degrees active R knee extension Target Visit 12 PT Problem 4 PT Problem #4 Impaired Strength PT Goal 1 Goal The patient will demonstrate at least 4/5 right shoulder strength to return to previous level of function. The patient will demonstrate 5/5 bilateral knee strength The patient will demonstrate 5/5 R hip flex Target Visit 12 PT Problem 5 PT Problem #5 Impaired Functional Mobil PT Goal 1 Goal The patient will demonstrate 30% or less self perceived disability per the Quick DASH. Target Visit 12
--- NOTE | 2023-07-06 16:45 | PTOPREEVAL ---
Assessment and note entered by JT File, PT Evaluation Information Assessment Status Re-evaluation Diagnosis R RCR, DCE, biceps tenodesis, R loose body removal in the knee Onset 05/05/23, 06/22/23 Subjective Information patient reports she had a follow up with the MD yesterday. she reports she is cleared to begin therapy of the R knee that she had surgery on 01/04. she reports she was also cleared to increased shoulder rehab of the R shoulder by progressing strengthening. she reports she has a 5lb restriction on the R shoulder. she reports the R shoulder has had more pain the past few days, but is chalking this up to the weather changing. she reports she continues to be weak and have pain in the R shoulder with reaching activities. she reports it aches quite a bit. she reports the pain is related to the front of the shoulder, top of the shoulder, and back of the shoulder. regarding the R knee, she reports she has swelling and pain all the time still. she reports she is still using ice and elevation to help with the swelling. 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 she has had an arthroscopic surgery of the R knee 2 weeks ago today. she presents with decreased rom, decreased strength, and deficits in ambulation/functional mobility of both the R knee and R shoulder. plan to continue skilled PT of the R shoulder and add PT of the R knee to improve her objective/functional activity performance and return to her prior level functional activities. new goals for the R knee were added today. Plan of Care Interventions Electrical Stimulation,Gait Training,Hot Pack/Cold Pack,Manual Therapy,Neuro Re-education,Patient/ Caregiver Educati,Therapeutic Activities, Therapeutic Exercise PT Services Indicated Yes Treatment Frequency and continue skilled PT per initial POC for 6 more Duration visits These treatments will address the objective and functional deficits as defined above. The patient will be advanced safely and appropriately in order for the patient to progress towards his/her prior level of function. Additional exercises will be introduced and as well as a comprehensive home exercise program upon discharge, if needed, ?to ensure carryover of functional gains achieved in the clinic. This treatment plan has been reviewed and agre
--- NOTE | 2023-07-27 13:54 | OPREHPOC ---
Outpatient Therapy Plan of Care This is a Multidisciplinary Plan of Care that may contain components documented by all disciplines (PT, OT, and ST.) PT Problem 1 PT Problem #1 Knowledge Deficit PT Goal 1 Goal The patient will be independent in a home exercise program. Target Visit 8 Progress Met Comment continue for knee PT Problem 2 PT Problem #2 Pain PT Goal 1 Goal The patient will report no greater than 3/10 right shoulder pain with all daily activities. The patient will report no greater than 2/10 pain in the R knee with daily activities. Target Visit 18 Progress Not Met PT Problem 3 PT Problem #3 Impaired Range of Motion PT Goal 1 Goal The patient will demonstrate at least 150 degrees right shoulder flexion AROM to improve overhead reaching ability. continue The patient will demonstrate functional IR to T8 to improve dressing ability. continue The patient will demonstrate functional ER to T2 to improve ability to wash/groom her hair. continue The patient will demonstrate 0 degrees active R knee extension. continue Target Visit 18 Progress Not Met PT Problem 4 PT Problem #4 Impaired Strength PT Goal 1 Goal The patient will demonstrate at least 4/5 right shoulder strength to return to previous level of function. The patient will demonstrate 5/5 bilateral knee strength. met The patient will demonstrate 5/5 R hip flex. Target Visit 18 Progress Partially Met PT Goal 2 Goal The patient will demonstrate 4+/5 or better overall R UE strength Target Visit 24 PT Problem 5 PT Problem #5 Impaired Functional Mobil PT Goal 1 Goal The patient will demonstrate 30% or less self perceived disability per the Quick DASH. The patient will deomnstrate 30% or less self perceived disability per the LEFS. Target Visit
--- NOTE | 2023-07-27 13:54 | PTOPREEVAL ---
Assessment and note entered by JT File, PT Evaluation Information Assessment Status Re-evaluation Diagnosis R RCR, DCE, biceps tenodesis, R loose body removal in the knee Onset 05/05/23, 06/22/23 Subjective Information patient reports she has been trying to stretch and move the R shoulder more as it bother her to keep it still for too long. she reports she continues to have increased pain in the R shoulder with reaching across her body. she reports she also has increased R shoulder pain with reaching behind her head and back. she reports she has increased pain in the R knee with being up on the knee for an extended time, and walking up and down steps. Reported Pain Level Pain Score 3,4: Self Report Assessment PT Clinical Summary mrs. espinoza presents to skilled PT services for her 12th skilled therapy visit for the R shoulder, and her 7th skilled PT visit for the R knee. she displays improvements in R knee and shoulder strength and rom. however, she continues to have pain in both and deficits in functional activity performance. she is still unable to reach across body with the R arm, or complete activities behind head and back easily. she would benefit from continued skilled PT to address both her deficits in the R shoulder and R knee to improve her objective/functional deficits and achieve remaining goals for skilled PT. Plan of Care Interventions Electrical Stimulation,Gait Training,Hot Pack/Cold Pack,Manual Therapy,Neuro Re-education,Patient/ Caregiver Educati,Therapeutic Activities, Therapeutic Exercise PT Services Indicated Yes Treatment Frequency and continue skilled PT 2x weekly for 6 more visits Duration These treatments will address the objective and functional deficits as defined above. The patient will be advanced safely and appropriately in order for the patient to progress towards his/her prior level of function. Additional exercises will be introduced and as well as a comprehensive home exercise program upon discharge, if needed, ?to ensure carryover of functional gains achieved in the clinic. This treatment plan has been reviewed and agreement upon by the patient.
--- NOTE | 2023-08-15 13:30 | PCPTNOTE ---
pt came in and cancelled due to being in ER.
--- NOTE | 2023-08-17 18:02 | PCPTNOTE ---
Patient called & cancelled scheduled appointment this date due to [unknown]
--- NOTE | 2023-08-31 14:05 | OPREHPOC ---
Outpatient Therapy Plan of Care This is a Multidisciplinary Plan of Care that may contain components documented by all disciplines (PT, OT, and ST.) PT Problem 1 PT Problem #1 Knowledge Deficit PT Goal 1 Goal The patient will be independent in a home exercise program. Target Visit 8 Progress Met Comment continue for knee PT Problem 2 PT Problem #2 Pain PT Goal 1 Goal The patient will report no greater than 3/10 right shoulder pain with all daily activities. The patient will report no greater than 2/10 pain in the R knee with daily activities. Target Visit 24 Progress Not Met PT Problem 3 PT Problem #3 Impaired Range of Motion PT Goal 1 Goal The patient will demonstrate at least 150 degrees right shoulder flexion AROM to improve overhead reaching ability. continue The patient will demonstrate functional IR to T8 to improve dressing ability. continue The patient will demonstrate functional ER to T2 to improve ability to wash/groom her hair. continue The patient will demonstrate 0 degrees active R knee extension. continue Target Visit 24 Progress Not Met PT Problem 4 PT Problem #4 Impaired Strength PT Goal 1 Goal The patient will demonstrate at least 4/5 right shoulder strength to return to previous level of function. met The patient will demonstrate 5/5 bilateral knee strength. met The patient will demonstrate 5/5 R hip flex. Target Visit 24 Progress Partially Met PT Goal 2 Goal The patient will demonstrate 4+/5 or better overall R UE strength Target Visit 24 Progress Not Met PT Problem 5 PT Problem #5 Impaired Functional Mobil PT Goal 1 Goal The patient will demonstrate 30% or less self perceived disability per the Quick DASH. The patient will deomnstrate 30% or less self
--- NOTE | 2023-08-31 14:05 | PTOPREEVAL ---
Assessment and note entered by JT File, PT Evaluation Information Assessment Status Re-evaluation Diagnosis R RCR, DCE, biceps tenodesis, R loose body removal in the knee Onset 05/05/23, 06/22/23 Subjective Information patient reports he pain in the R shoulder, R knee, and everywhere is flared up from work the last week. she reports she has stood a lot working at [employer]. she reports she has been trying to do her exercises, but has not been consistent with every exercise or 2x daily. she reports she has popping in the R knee along the outside of the knee, and the R knee and R shoulder both feel tight. Reported Pain Level Pain Score 6,6: Self Report Assessment PT Clinical Summary mrs. espinoza presents to skilled PT for her 18th skilled therapy visit. she has increased pain in both the R shoulder and R knee since returning to try to work. her R knee rom has gotten slightly worse since her last therapy re-evaluation. she also displays continued tightness of the R shoulder and weakness in the R shoulder. she continues to lack goals for skilled PT. she would benefit from continued skilled PT to address her objective/functional deficits and achieve her goals for skilled PT to return to prior level functional activity performance and quality of life. Plan of Care Interventions Electrical Stimulation,Gait Training,Hot Pack/Cold Pack,Manual Therapy,Neuro Re-education,Patient/ Caregiver Educati,Therapeutic Activities, Therapeutic Exercise PT Services Indicated Yes Treatment Frequency and continue skilled PT 2x weekly for 6 more visits Duration These treatments will address the objective and functional deficits as defined above. The patient will be advanced safely and appropriately in order for the patient to progress towards his/her prior level of function. Additional exercises will be introduced and as well as a comprehensive home exercise program upon discharge, if needed, ?to ensure carryover of functional gains achieved in the clinic. This treatment plan has been reviewed and agreement upon by the patient.
== END 2023-09-12 22:00 | disposition still patient (30) ==
LOC: CHSPT 10:32
PROVIDERS: Visit Provider Orthopaedic Surgery
DX: M75.111 Incomplete rotator cuff tear or rupture of right shoulder, not specified as traumatic (principal)
CPT/HCPCS: 97014; 97110; 97140; 97161; G0283

== ENCOUNTER 2023-09-19 12:57 | Outpatient (RCR) | payer MEDICARE, SELFPAY ==
[2023-09-19 12:52] VITALS: BP_SYST 90
== END 2023-10-05 20:00 | disposition home or self-care (01) ==
LOC: CHSPT 12:57
PROVIDERS: Visit Provider Orthopaedic Surgery
DX: M75.111 Incomplete rotator cuff tear or rupture of right shoulder, not specified as traumatic (principal)
CPT/HCPCS: 97014; 97110; G0283

== ENCOUNTER 2024-01-02 10:43 | Outpatient (CLI) | payer MEDICARE, SELFPAY ==
--- NOTE | ~2024-01-02 | MM_ITS ---
EXAMINATION: MM screening petty BI w radhika HISTORY: Screening TECHNIQUE: Craniocaudal and mediolateral oblique 3-D tomosynthesis images were obtained and synthetic 2-D images were generated. CAD analysis was submitted and interpreted. COMPARISON: Comparison to multiple prior studies sequentially, with oldest reviewed study dated 11/02. BREAST PARENCHYMAL COMPOSITION: Dense: The breasts are heterogeneously dense, which may obscure small masses FINDINGS: There is no evidence of suspicious mass, calcification, or architectural distortion to sugg est malignancy in either breast. There has been no suspicious interval change. IMPRESSION: 1. No mammographic evidence of malignancy. 2. Recommend routine screening mammography in one year. BI-RADS Category 1: Negative Reviewed, dictated and finalized at location B.
== END 2024-01-02 10:44 | disposition home or self-care (01) ==
PROVIDERS: PCP Obstetrics & Gynecology; Visit Provider Obstetrics & Gynecology
DX: Z12.31 Encounter for screening mammogram for malignant neoplasm of breast (principal)
CPT/HCPCS: 77063; 77067

== ENCOUNTER 2024-11-15 07:25 | Outpatient (CLI) | payer MEDICARE, SELFPAY ==
--- OUTSIDE RECORDS SUMMARY | 2024-02-02 08:00 | XMS_ITS ---
Author Organization [facility] Address [address] [facility] [address] [facility] [address] [place], [place] [id number] Care Team Providers Care Brokerage Office Manager Name Role Phone LB INGRAM Primary Care Provider UnavailRuby Galvan Unavailable [phone] Codie Lema Unavailable [phone] ALLERGIES No Known Allergies RESULTS Component Value Reference Range Notes AST (SGOT) Reviewed date:02/03/2024 03:44:17 PM Interpretation: Performing Lab:[facility], [address] [place], [place] [address] [facility] Phone - [phone], Director - Caryn Notes/Report: AST (SGOT) 19 0-40 IU/L Creatinine, Serum Reviewed date:02/03/2024 03:44:17 PM Interpretation: Performing Lab:[facility], [address] [place], [place] [address]ox [facility] Phone - [phone], Director - Caryn Notes/Report: Creatinine 0.65 0.57-1.00 mg/dL eGFR 103 >59 mL/min/1.73 ALT (SGPT) Reviewed date:02/03/2024 03:44:17 PM Interpretation: Performing Lab:[facility] [address] [place], [place] [address] [facility] Phone - [phone], Director - Caryn Notes/Report: ALT (SGPT) 19 0-32 IU/L CBC With Differential/Platel et Reviewed date:02/03/2024 03:44:17 PM Interpretation: Performing Lab:[facility], [address] [facility] Phone - [phone], Director - [facility] Notes/Report: WBC 8.9 3.4-10.8 x10E3/uL Effective February 13, 2024 profile [id number] WBC will be made non-orderable as a [...] Westergren Reviewed date:02/03/2024 03:44:17 PM Interpretation: Performing Lab:[facility], [address] [place] [address], Phone - [phone], Director - [facility] Notes/Report: Sedimentation Rate-Westergren 17 0-40 mm/hr C-Reactive Protein, Quant Reviewed date:02/03/2024 03:44:17 PM Interpretation: Performing Lab:[facility] [place], [address] [place] [address], Phone - [phone], Director - [facility] Notes/Report: C-Reactive Protein, Quant 13 0-10 mg/L VITAMIN D, 25-HYDROXY, LC/MS /MS Reviewed date:02/05/2024 07:47:50 PM Interpretation: Performing Lab:[facility], [address] [place], [place] [address], Phone - [phone], Director - Caryn Notes/Report: Vitamin D, 25-Hydroxy 23.5 30.0-100.0 ng/mL Vitamin D deficiency has been defined by the [place] of [employer] and an Endocrine Society practice guideline as a level of serum 25-OH vitamin D less than 20 ng/mL (1,2). The Endocrine Society went on to further define vitamin D insufficiency as a level between 21 and 29 ng/mL (2). 1. IOM ([place] of [employer]). 2010. Dietary reference intakes for [...] Location Date Provider [facility] [address] [place], [place] [phone] 02/02/2024 Codie Lema Fibromyalgia M79.7 ; Primary generalized (osteo)arthritis M15.0 ; Other buttermilk drier operator (current) drug therapy Z79.899 ; Vitamin D [...] any adverse effects of medications. 02/02/2024 Other detention (current) drug therapy (ICD-10 - Z79.899) The [...] AM, [address], [address], [place], [place], [phone], Progress Notes * Examination Category Sub-Category Detail [...]
--- OUTSIDE RECORDS SUMMARY | 2024-02-05 14:45 | XMS_ITS ---
Author Organization [facility] Address [address] [place], [place] [id number] Care Team Providers Care Canvas Goods Supervisor Name Role Phone LB INGRAM Primary Care Provider Ruby Kebede [phone] MEDICATIONS Medication SIG (Take, Route, Frequency, Duration) Notes Start Date End Date Status ergocalciferol 50,000 intl units 1 cap(s) orally once a week for 84 days 02/06/2024 Active Encounters Encounter Location Date Provider Diagnosis [facility] [address] [place], [place] [id number] 02/05/2024 Ruby Hamilton PLAN OF TREATMENT Medication Medication Name Sig Start Date Stop Date Notes ergocalciferol 50,000 intl units 1 cap(s ) orally once a week for 84 days 02/06/2024 Next Appt Details Provider Name:Codie Lema, 01/23/2025 11:10:00 AM, [address], [address], [place], [place], [phone],
--- OUTSIDE RECORDS SUMMARY | 2024-06-19 04:26 | XMS_ITS ---
Author Organization [facility] Address [address] [place], [place] [id number] Care Team Providers Care Coater Name Role Phone NATALY, LB Primary Care Provider Ruby Kebede Unavailable [phone] REASON FOR VISIT elev inflam makers Encounters Encounter Location Date Provider Diagnosis [facility] [address], [address] [place], [place] [phone] 06/19/2024 Ruby Hamilton PLAN OF TREATMENT Next Appt Details Provider Name:Codie Lema, 01/23/2025 11:10:00 AM, [address], [address], [place], [place], [phone],
--- OUTSIDE RECORDS SUMMARY | 2024-08-01 05:50 | XMS_ITS ---
Author Organization [facility] Address [address] [facility] Chu Hernández [facility] [address] [place], [place] [id number] Care Team Providers Care Director Of Respiratory Therapy Name Role Phone LB INGRAM Primary Care Provider UnavailRuby Galvan Unavailable [phone] RayumikoCodie Unavailable [phone] ALLERGIES No Known Allergies RESULTS Component Value Reference Range Notes AST (SGOT) Reviewed date:08/02/2024 12:38:24 PM Interpretation: Performing Lab:[facility], [address] [place], [place] [address]ox [facility], Phone - [phone], Director - Caryn Notes/Report: AST (SGOT) 11 0-40 IU/L Creatinine, Serum Reviewed date:08/02/2024 12:38:24 PM Interpretation: Performing Lab:[employer] [address] [place], [place] [address] [facility], Phone - [phone], Director - Caryn Notes/Report: Creatinine 0.61 0.57-1.00 mg/dL eGFR 105 >59 mL/min/1.73 ALT (SGPT) Reviewed date:08/02/2024 12:38:24 PM Interpretation: Performing Lab:[employer] [facility], Phone - [phone], Director - Caryn Notes/Report: ALT (SGPT) 10 0-32 IU/L CBC With Differential/Platel et Reviewed date:08/02/2024 12:38:24 PM Interpretation: Performing Lab:[facility], [employer] [facility], Phone - [phone], Director - Caryn Notes/Report: WBC 7.2 3.4-10.8 x10E3/uL RBC 4.74 3.77-5.28 x10E6/uL Hemoglobin 12.4 11.1-15.9 g/dL Hematocrit 39.6 34.0-46.6 % MCV 84 79-97 fL MCH 26.2 26.6-33.0 pg MCHC 31.3 31.5-35.7 g/dL RDW 13.7 11.7-15.4 % Platelets 316 150-450 x10E3/uL Neutrophils 59 Not Estab. % Lymphs 30 Not Estab. % Monocytes 9 Not Estab. % Eos 2 Not Estab. % Basos 0 Not Estab. % Immature Cells Neutrophils (Absolute) 4.2 1.4-7.0 x10E3/uL Lymphs (Absolute) 2.2 0.7-3.1 x10E3/uL Monocytes(Absolute) 0.6 0.1-0.9 x10E3/uL Eos (Absolute) 0.2 0.0-0.4 x10E3/uL Baso (Absolute) 0.0 0.0-0.2 x10E3/uL Immature Granulocytes 0 Not Estab. % Immature Grans (Abs) 0.0 0.0-0.1 x10E3/uL NRBC Hematology Comments: Sed Rate - Westergren Reviewed date:08/02/2024 12:38:24 PM Interpretation: Performing Lab:[employer] [address], Phone - [phone], [facility]/Report: Sedimentation Rate-Albertergren 28 0-40 mm/hr Rheumatoid Arthritis Factor Reviewed date:08/02/2024 12:38:24 PM Interpretation: Performing Lab:[employer] [place], [address] [place] [address], Phone - [phone], [facility]/Report: Rheumatoid Factor (RF) <10.0 <14.0 IU/mL C-Reactive Protein, Quant Reviewed date:08/02/2024 12:38:24 PM Interpretation: Performing Lab:[employer] [place], [address] [place] [address], Phone - [phone], [facility] Notes/Report: C-Reactive Protein, Quant 9 0-10 mg/L CCP IgG Antibodies Reviewed date:08/02/2024 12:38:24 PM Interpretation: Performing Lab:[facility], [address] [facility], [place], Phone - [phone], Director - Caryn Notes/Report: Anti-CCP Ab, IgG/IgA 13 0-19 units Negative <20 Weak positive 20 - 39 Moderate positive 40 - 59 Strong positive >59 MEDICATIONS Medication SIG (Take, Route, Frequency, Duration) Notes Start Date End Date Status traMADol 50 mg 1 tab(s) orally 2 ti mes a day prn 08/05/2023 Active Tylenol Sinus Congestion and Pain Severe prn Active PROzac 40 mg 1 cap(s) orally once a day Active meloxicam 15 mg 1 tab(s) orally once a day Active Vitamin B12 250 mcg 1 tab(s) orally once a day Active TiZANidine Hydrochloride 2 mg 1 tab(s) orally nightly as needed Active Maxalt 10 mg as directed orally prn Active clobetasol topical 0.05% 1 luis applied t opically 2 times a day Active ergocalciferol 50,000 intl units 1 cap(s) orally once a week 02/06/2024 Active VITAL SIGNS BMI 42.75 kg/m2 08/01/2024 Blood pressure systolic 142 mm Hg 08/02/19 25 Blood pressure diastolic 61 mm Hg 025 Heart Rate 80 /min 08/01/2024 Height 70 in 08/01/2024 Weight 298 lbs 08/01/2024 Encounters Encounter Location Date Provider Diagnosis [facility] [address] [place] [address], [address] [place], [place] [id number] 08/01/2024 Codie Lema Fibromyalgia M79.7 ; Primary generalized (osteo)arthritis M15.0 ; Other terminal computer operator (current) drug therapy Z79.899 ; Vitamin D deficiency, unspecified E55.9 ; Right hand pain M79.641 ; Left hand pain M79.642 ; Left foot pain M79.672 ; Elevated C-reactive protein (CRP) R79.82 ; Sacroiliac joint pain M53.3 and Rash R21 ASSESSMENTS Encounter Date Diagnosis Assessment Notes Treatment Notes Treatment Clinical Notes Section Notes 08/01/2024 Fibromyalgia (ICD-10 - M79.7) The patient was advised to continue the current regimen for the treatment and pain control of fibromyalgia and OA. Labwork drawn to evaluate disease process and to monitor any adverse effects of medications. Her CRP is usually slightly elevated. Sed rate has been normal. 08/01/2024 Primary generalized (osteo)arthritis (ICD-10 - M15.0) The patient was advised to continue the current regimen for the treatment and pain control of fibromyalgia and OA. Labwork drawn to evaluate disease process and to monitor any adverse effects of medications. Her CRP is usually slightly elevated. Sed rate has been normal. 08/01/2024 Other fdc (current) drug therapy (ICD-10 - Z79.899) The patient was advised to continue the current regimen for the treatment and pain control of fibromyalgia and OA. Labwork drawn to evaluate disease process and to monitor any adverse effects of medications. Her CRP is usually slightly elevated. Sed rate has been normal. 08/01/2024 Vitamin D deficiency, unspecified (ICD-10 - E55.9) The patient was advised to continue the current regimen for the treatment and pain control of fibromyalgia and OA. Labwork drawn to evaluate disease process and to monitor any adverse effects of medications. Her CRP is usually slightly elevated. Sed rate has been normal. 08/01/2024 Right hand pain (ICD-10 - M79.641) The patient was advised to continue the current regimen for the treatment and pain control of fibromyalgia and OA. Labwork drawn to evaluate disease process and to monitor any adverse effects of medications. Her CRP is usually slightly elevated. Sed rate has been normal. 08/01/2024 Left hand pain (ICD-10 - M79.642) The patient was advised to continue the current regimen for the treatment and pain control of fibromyalgia and OA. Labwork drawn to evaluate disease process and to monitor any adverse effects of medications. Her CRP is usually slightly elevated. Sed rate has been normal. 08/01/2024 Left foot pain (ICD-10 - M79.672) The patient was advised to continue the current regimen for the treatment and pain control of fibromyalgia and OA. Labwork drawn to evaluate disease process and to monitor any adverse effects of medications. Her CRP is usually slightly elevated. Sed rate has been normal. 08/01/2024 Elevated C-reactive protein (CRP) (ICD-10 - R79.82) The patient was advised to continue the current regimen for the treatment and pain control of fibromyalgia and OA. Labwork drawn to evaluate disease process and to monitor any adverse effects of medications. Her CRP is usually slightly elevated. Sed rate has been normal. 08/01/2024 Sacroiliac joint pain (ICD-10 - M53.3) The patient was advised to continue the current regimen for the treatment and pain control of fibromyalgia and OA. Labwork drawn to evaluate disease process and to monitor any adverse effects of medications. Her CRP is usually slightly elevated. Sed rate has been normal. 08/01/2024 Rash (ICD-10 - R21) The patient was advised to continue the current regimen for the treatment and pain control of fibromyalgia and OA. Labwork drawn to evaluate disease process and to monitor any adverse effects of medications. Her CRP is usually slightly elevated. Sed rate has been normal. PLAN OF TREATMENT Medication Medication Name Sig Start Date Stop Date Notes traMADol 50 mg 1 tab(s) orally 2 ti mes a day prn 08/05/2023 Tylenol Sinus Congestion and Pain Severe prn PROzac 40 mg 1 cap(s) orally once a day meloxicam 15 mg 1 tab(s) orally once a day TiZANidine Hydrochloride 2 mg 1 tab(s) o rally nightly as needed Maxalt 10 mg as directed orally prn clobetasol topical 0.05% 1 luis applied t opically 2 times a day ergocalciferol 50,000 intl units 1 cap(s ) orally once a week 02/06/2024 Pending Test Test Name Order Date VITAMIN D, 25-HYDROXY, LC/MS/MS 08/02/19 25 X ray : Hand left- outside order 025 X ray : Hand right- outside order 2024 X ray : SI joints- outside order 025 -Xray slip given 08/01/2024 Next Appt Details Follow Up: 6 Months Codie muniz, Reason: Provider Name:Codie Lema, 01/23/2025 11:10:00 AM, [address] [facility], [address], [place], [place], [phone], Progress Notes * Examination Category Sub-Category Detail Notes Category Not es Rheumatology Cervical Spine normal range of motion Lumbar spine: Diffuse tenderness Thoracic Spine: normal Sacroiliac: right tenderness Fibromyalgia Tender Points: 18/18 presen t General Constitutional: NAD HEENT: PERRLA [...] right shoulder and right knee pain. She recently had a an elevated CRP again. Meloxicam helps. She is back to feeling about the same- deals with daily pain. She has been taking tizanidine and tramadol more on a daily basis. . Fatigue Chronic widespread pain Unrefreshed sleep medication problems GI upset joint pain Physical Examination Category Sub-Category Detail Notes Section Note s MDHAQ Summary Function (0-10):: 3.7 Pain (0-10):: 5.5 Patient Global Assessment of Disease Activity (0 -10):: 7.5 RAPID3 Score (0-30):: 16.7 Physician Global Assessment of Disease Activity (0-10):: 4 Prognosis Good w/tx Erosive Damage No
--- OUTSIDE RECORDS SUMMARY | 2024-10-01 09:19 | XMS_ITS ---
Author Organization [facility] Address [address] [place], [place] [phone] Care Team Providers Care Home Health Care Social Worker Name Role Phone LB INGRAM Primary Care Provider Ruby Kebede Unavailable [phone] Encounters Encounter Location Date Provider Diagnosis [facility] [address], [address] [place], [place] [id number] 10/01/2024 Ruby Hamilton PLAN OF TREATMENT Next Appt Details Provider Name:Codiemarnie Lema, 01/23/2025 11:10:00 AM, [address], [address], [place], [place], [phone],
--- NOTE | ~2024-11-15 | US_ITS ---
EXAMINATION: US venous doppler [facility] DATE: 11/15/2024 08:03 INDICATION: Asymmetric lower limb edema TECHNIQUE: Grayscale ultrasound images without and with compression and Doppler ultrasound images of the bilateral lower extremity veins were obtained. COMPARISON: None. FINDINGS: The visualized portions of right common femoral vein, profunda (deep) femoral vein, femoral vein, popliteal vein, posterior tibial veins, peroneal veins, gastrocnemius vein and greater saphenous vein outflow are patent. The visualized portions of left common femoral vein, profunda femoral vein, femoral vein, popliteal vein, posterior tibial veins, peroneal veins, gastrocnemius vein and greater saphenous vein outflow are patent. IMPRESSION: 1. No deep venous thrombosis in either lower limb. Reviewed, dictated and finalized at location A.
--- OUTSIDE RECORDS SUMMARY | 2024-11-15 07:36 | XMS_ITS | Patient Health Record ---
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 Active Meloxicam 15 MG Tablet 1 tablet Oral Onc e a day; Duration: 90 days Active FLUoxetine HCl 40 MG Capsule 1 capsule Oral Once a day; Duration: 90 days Active traMADol HCl 50 MG Tablet 1 tablet as needed Oral Once a day 05/19/2023 Active tiZANidine HCl 2 MG Tablet 1 tablet at bedtime as needed Oral Once a day 05/19/2023 Active DULoxetine HCl 20 MG Capsule Delayed Release Particles Oral 05/19/2023 Not-Taking Meloxicam 15 MG Tablet Oral 05/19/2023 Not-Taking HYDROcodone-Acetaminophe n 5-325 MG Tablet Oral 05/19/2023 Not-Taking Immunizations Vaccine Route Administration Date Status Comme nts Influenza virus vaccine, quadrivalent (IIV4), split virus, 0.25 mL dosage Unknown 01/07/2022 Administered Pfizer Biontech Covid-19 Vac cine 2nd dose Unknown 10/29/2020 Administered Pfizer Biontech Covid-19 Vac cine 2nd dose Unknown 11/19/2020 Administered Tdap Unknown 01/07/2022 Administered Social History Tobacco Use: Social History Observation Description Date Details (start date - stop date) Never Smoker NA - NA Sex Assigned At : Social History Observation Description Sex Assigned At Female Social History Tobacco Use: Social Info Question Answer Notes Tobacco Control (Standard) Tobacco use: Nonsmoker Additional Details Category Social Info Options Details Migrated Social History Migrated Social History Alcohol Intake: Occasional 01/12/2022,Tobacco Years: Never smoker 01/12/2022 Section Notes: Do you or have you ever smok ed tobacco?: Never smokerHow much tobacco do you smoke?: NoneDo you or have you ever used any other forms of tobacco or nicotine?: NoDo you or have you ever used e-cigarettes or vape?: Never used electronic cigarettesWhat was the date of your most recent tobacco screening?: 05/19/2023Has tobacco cessation counseling been provided?: NoWhat is your level of alcohol consumption?: OccasionalHow many years have you consumed alcohol?: 32How many days in the past year have you consumed 4 or more drinks? : 0Have you ever been counseled for unhealthy alcohol use?: NoDo you use any illicit or recreational drugs?: NoWhich illicit or recreational drugs have you used?: NoneHave you used IV drugs?: NoWhat is your level of caffeine consumption?: ModerateEducation and OccupationWhat is the highest grade or level of school you have completed or the highest degree you have received?: Bachelor's degree (e.g., BA, AB, BS)Are you currently in school?: NoAre you currently employed?: NoWho is your employer?: DisabilityMarriage and SexualityWhat is your relationship status?: MarriedAre you sexually active?: YesDo you use protection during sex?: NoHow many children do you have?: 1Home and EnvironmentAre you a caregiver?: YesDo you have any pets?: YesDo you have smoke and carbon monoxide detectors in your home?: YesAre you passively exposed to smoke?: NoAre there any smokers in your house?: NoAre there any guns present in your home?: YesDiet and ExerciseWhat type of diet are you following?: RegularWhat is your exercise level?: NoneLifestyleDo you feel stressed (tense, restless, nervous, or anxious, or unable to sleep at night)?: To some extentDo you use your seat belt or car seat routinely?: YesAdvance DirectiveDo you have an advance directive?: YesDo you have a medical power of wire brush maker?: NoPublic Health and TravelHave you been to an area known to be high risk for COVID-19?: NoIn the 14 days before symptom onset, have you had close contact with a laboratory-confirmed COVID-19 while that case was ill?: NoIn the 14 days before symptom onset, have you had close contact with a person who is under investigation for COVID-19 while that person was ill?: NoDo you reside in or have you traveled to an area where Ebola virus transmission is active?: NoActivities of Daily LivingAre you able to care for yourself?: YesAre you blind or do you have difficulty seeing?: Yes (Notes: floater in right eye, has readers and contacts)Are you deaf or do you have serious difficulty hearing? : NoDo you have difficulty concentrating, remembering or making decisions?: Yes (Notes: remembering)Do you have difficulty walking or climbing stairs?: YesDo you have difficulty dressing or bathing?: NoDo you have difficulty doing errands alone?: Yes (Notes: sometimes)Are you able to walk?: Yes: walks without restrictionsDo you have transportation difficulties?: NoGender Identity and LGBTQ IdentityGender identity: Identifies as FemaleAssigned sex at : FemaleSexual orientation: Straight or heterosexual Do you or have you ever smok ed tobacco?: Never smokerHow much tobacco do you smoke?: NoneDo you or have you ever used any other forms of tobacco or nicotine?: NoDo you or have you ever used e-cigarettes or vape?: Never used electronic cigarettesWhat was the date of your most recent tobacco screening?: 05/19/2023Has tobacco cessation counseling been provided?: NoWhat is your level of alcohol consumption?: OccasionalHow many years have you consumed alcohol?: 32How many days in the past year have you consumed 4 or more drinks? : 0Have you ever been counseled for unhealthy alcohol use?: NoDo you use any illicit or recreational drugs?: NoWhich illicit or recreational drugs have you used?: NoneHave you used IV drugs?: NoWhat is your level of caffeine consumption?: ModerateEducation and OccupationWhat is the highest grade or level of school you have completed or the highest degree you have received?: Bachelor's degree (e.g., BA, AB, BS)Are you currently in school?: NoAre you currently employed?: NoWho is your employer?: DisabilityMarriage and SexualityWhat is your relationship status?: MarriedAre you sexually active?: YesDo you use protection during sex?: NoHow many children do you have?: 1Home and EnvironmentAre you a caregiver?: YesDo you have any pets?: YesDo you have smoke and carbon monoxide detectors in your home?: YesAre you passively exposed to smoke?: NoAre there any smokers in your house?: NoAre there any guns present in your home?: YesDiet and ExerciseWhat type of diet are you following?: RegularWhat is your exercise level?: NoneLifestyleDo you feel stressed (tense, restless, nervous, or anxious, or unable to sleep at night)?: To some extentDo you use your seat belt or car seat routinely?: YesAdvance DirectiveDo you have an advance directive?: YesDo you have a medical power of wire brush maker?: NoPublic Health and TravelHave you been to an area known to be high risk for COVID-19?: NoIn the 14 days before symptom onset, have you had close contact with a laboratory-confirmed COVID-19 while that case was ill?: NoIn the 14 days before symptom onset, have you had close contact with a person who is under investigation for COVID-19 while that person was ill?: NoDo you reside in or have you traveled to an area where Ebola virus transmission is active?: NoActivities of Daily LivingAre you able to care for yourself?: YesAre you blind or do you have difficulty seeing?: Yes (Notes: floater in right eye, has readers and contacts)Are you deaf or do you have serious difficulty hearing? : NoDo you have difficulty concentrating, remembering or making decisions?: Yes (Notes: remembering)Do you have difficulty walking or climbing stairs?: YesDo you have difficulty dressing or bathing?: NoDo you have difficulty doing errands alone?: Yes (Notes: sometimes)Are you able to walk?: Yes: walks without restrictionsDo you have transportation difficulties?: NoGender Identity and LGBTQ IdentityGender identity: Identifies as FemaleAssigned sex at : FemaleSexual orientation: Straight or heterosexual Do you or have you ever smok ed tobacco?: Never smokerHow much tobacco do you smoke?: NoneDo you or have you ever used any other forms of tobacco or nicotine?: NoDo you or have you ever used e-cigarettes or vape?: Never used electronic cigarettesWhat was the date of your most recent tobacco screening?: 05/19/2023Has tobacco cessation counseling been provided?: NoWhat is your level of alcohol consumption?: OccasionalHow many years have you consumed alcohol?: 32How many days in the past year have you consumed 4 or more drinks? : 0Have you ever been counseled for unhealthy alcohol use?: NoDo you use any illicit or recreational drugs?: NoWhich illicit or recreational drugs have you used?: NoneHave you used IV drugs?: NoWhat is your level of caffeine consumption?: ModerateEducation and OccupationWhat is the highest grade or level of school you have completed or the highest degree you have received?: Bachelor's degree (e.g., BA, AB, BS)Are you currently in school?: NoAre you currently employed?: NoWho is your employer?: DisabilityMarriage and SexualityWhat is your relationship status?: MarriedAre you sexually active?: YesDo you use protection during sex?: NoHow many children do you have?: 1Home and EnvironmentAre you a caregiver?: YesDo you have any pets?: YesDo you have smoke and carbon monoxide detectors in your home?: YesAre you passively exposed to smoke?: NoAre there any smokers in your house?: NoAre there any guns present in your home?: YesDiet and ExerciseWhat type of diet are you following?: RegularWhat is your exercise level?: NoneLifestyleDo you feel stressed (tense, restless, nervous, or anxious, or unable to sleep at night)?: To some extentDo you use your seat belt or car seat routinely?: YesAdvance DirectiveDo you have an advance directive?: YesDo you have a medical power of wire brush maker?: NoPublic Health and TravelHave you been to an area known to be high risk for COVID-19?: NoIn the 14 days before symptom onset, have you had close contact with a laboratory-confirmed COVID-19 while that case was ill?: NoIn the 14 days before symptom onset, have you had close contact with a person who is under investigation for COVID-19 while that person was ill?: NoDo you reside in or have you traveled to an area where Ebola virus transmission is active?: NoActivities of Daily LivingAre you able to care for yourself?: YesAre you blind or do you have difficulty seeing?: Yes (Notes: floater in right eye, has readers and contacts)Are you deaf or do you have serious difficulty hearing? : NoDo you have difficulty concentrating, remembering or making decisions?: Yes (Notes: remembering)Do you have difficulty walking or climbing stairs?: YesDo you have difficulty dressing or bathing?: NoDo you have difficulty doing errands alone?: Yes (Notes: sometimes)Are you able to walk?: Yes: walks without restrictionsDo you have transportation difficulties?: NoGender Identity and LGBTQ IdentityGender identity: Identifies as FemaleAssigned sex at : FemaleSexual orientation: Straight or heterosexual Do you or have you ever smok ed tobacco?: Never smokerHow much tobacco do you smoke?: NoneDo you or have you ever used any other forms of tobacco or nicotine?: NoDo you or have you ever used e-cigarettes or vape?: Never used electronic cigarettesWhat was the date of your most recent tobacco screening?: 05/19/2023Has tobacco cessation counseling been provided?: NoWhat is your level of alcohol consumption?: OccasionalHow many years have you consumed alcohol?: 32How many days in the past year have you consumed 4 or more drinks? : 0Have you ever been counseled for unhealthy alcohol use?: NoDo you use any illicit or recreational drugs?: NoWhich illicit or recreational drugs have you used?: NoneHave you used IV drugs?: NoWhat is your level of caffeine consumption?: ModerateEducation and OccupationWhat is the highest grade or level of school you have completed or the highest degree you have received?: Bachelor's degree (e.g., BA, AB, BS)Are you currently in school?: NoAre you currently employed?: NoWho is your employer?: DisabilityMarriage and SexualityWhat is your relationship status?: MarriedAre you sexually active?: YesDo you use protection during sex?: NoHow many children do you have?: 1Home and EnvironmentAre you a caregiver?: YesDo you have any pets?: YesDo you have smoke and carbon monoxide detectors in your home?: YesAre you passively exposed to smoke?: NoAre there any smokers in your house?: NoAre there any guns present in your home?: YesDiet and ExerciseWhat type of diet are you following?: RegularWhat is your exercise level?: NoneLifestyleDo you feel stressed (tense, restless, nervous, or anxious, or unable to sleep at night)?: To some extentDo you use your seat belt or car seat routinely?: YesAdvance DirectiveDo you have an advance directive?: YesDo you have a medical power of wire brush maker?: NoPublic Health and TravelHave you been to an area known to be high risk for COVID-19?: NoIn the 14 days before symptom onset, have you had close contact with a laboratory-confirmed COVID-19 while that case was ill?: NoIn the 14 days before symptom onset, have you had close contact with a person who is under investigation for COVID-19 while that person was ill?: NoDo you reside in or have you traveled to an area where Ebola virus transmission is active?: NoActivities of Daily LivingAre you able to care for yourself?: YesAre you blind or do you have difficulty seeing?: Yes (Notes: floater in right eye, has readers and contacts)Are you deaf or do you have serious difficulty hearing? : NoDo you have difficulty concentrating, remembering or making decisions?: Yes (Notes: remembering)Do you have difficulty walking or climbing stairs?: YesDo you have difficulty dressing or bathing?: NoDo you have difficulty doing errands alone?: Yes (Notes: sometimes)Are you able to walk?: Yes: walks without restrictionsDo you have transportation difficulties?: NoGender Identity and LGBTQ IdentityGender identity: Identifies as FemaleAssigned sex at : FemaleSexual orientation: Straight or heterosexual Do you or have you ever smok ed tobacco?: Never smokerHow much tobacco do you smoke?: NoneDo you or have you ever used any other forms of tobacco or nicotine?: NoDo you or have you ever used e-cigarettes or vape?: Never used electronic cigarettesWhat was the date of your most recent tobacco screening?: 05/19/2023Has tobacco cessation counseling been provided?: NoWhat is your level of alcohol consumption?: OccasionalHow many years have you consumed alcohol?: 32How many days in the past year have you consumed 4 or more drinks? : 0Have you ever been counseled for unhealthy alcohol use?: NoDo you use any illicit or recreational drugs?: NoWhich illicit or recreational drugs have you used?: NoneHave you used IV drugs?: NoWhat is your level of caffeine consumption?: ModerateEducation and OccupationWhat is the highest grade or level of school you have completed or the highest degree you have received?: Bachelor's degree (e.g., BA, AB, BS)Are you currently in school?: NoAre you currently employed?: NoWho is your employer?: DisabilityMarriage and SexualityWhat is your relationship status?: MarriedAre you sexually active?: YesDo you use protection during sex?: NoHow many children do you have?: 1Home and EnvironmentAre you a caregiver?: YesDo you have any pets?: YesDo you have smoke and carbon monoxide detectors in your home?: YesAre you passively exposed to smoke?: NoAre there any smokers in your house?: NoAre there any guns present in your home?: YesDiet and ExerciseWhat type of diet are you following?: RegularWhat is your exercise level?: NoneLifestyleDo you feel stressed (tense, restless, nervous, or anxious, or unable to sleep at night)?: To some extentDo you use your seat belt or car seat routinely?: YesAdvance DirectiveDo you have an advance directive?: YesDo you have a medical power of wire brush maker?: NoPublic Health and TravelHave you been to an area known to be high risk for COVID-19?: NoIn the 14 days before symptom onset, have you had close contact with a laboratory-confirmed COVID-19 while that case was ill?: NoIn the 14 days before symptom onset, have you had close contact with a person who is under investigation for COVID-19 while that person was ill?: NoDo you reside in or have you traveled to an area where Ebola virus transmission is active?: NoActivities of Daily LivingAre you able to care for yourself?: YesAre you blind or do you have difficulty seeing?: Yes (Notes: floater in right eye, has readers and contacts)Are you deaf or do you have serious difficulty hearing? : NoDo you have difficulty concentrating, remembering or making decisions?: Yes (Notes: remembering)Do you have difficulty walking or climbing stairs?: YesDo you have difficulty dressing or bathing?: NoDo you have difficulty doing errands alone?: Yes (Notes: sometimes)Are you able to walk?: Yes: walks without restrictionsDo you have transportation difficulties?: NoGender Identity and LGBTQ IdentityGender identity: Identifies as FemaleAssigned sex at : FemaleSexual orientation: Straight or heterosexual Do you or have you ever smok ed tobacco?: Never smokerHow much tobacco do you smoke?: NoneDo you or have you ever used any other forms of tobacco or nicotine?: NoDo you or have you ever used e-cigarettes or vape?: Never used electronic cigarettesWhat was the date of your most recent tobacco screening?: 05/19/2023Has tobacco cessation counseling been provided?: NoWhat is your level of alcohol consumption?: OccasionalHow many years have you consumed alcohol?: 32How many days in the past year have you consumed 4 or more drinks? : 0Have you ever been counseled for unhealthy alcohol use?: NoDo you use any illicit or recreational drugs?: NoWhich illicit or recreational drugs have you used?: NoneHave you used IV drugs?: NoWhat is your level of caffeine consumption?: ModerateEducation and OccupationWhat is the highest grade or level of school you have completed or the highest degree you have received?: Bachelor's degree (e.g., BA, AB, BS)Are you currently in school?: NoAre you currently employed?: NoWho is your employer?: DisabilityMarriage and SexualityWhat is your relationship status?: MarriedAre you sexually active?: YesDo you use protection during sex?: NoHow many children do you have?: 1Home and EnvironmentAre you a caregiver?: YesDo you have any pets?: YesDo you have smoke and carbon monoxide detectors in your home?: YesAre you passively exposed to smoke?: NoAre there any smokers in your house?: NoAre there any guns present in your home?: YesDiet and ExerciseWhat type of diet are you following?: RegularWhat is your exercise level?: NoneLifestyleDo you feel stressed (tense, restless, nervous, or anxious, or unable to sleep at night)?: To some extentDo you use your seat belt or car seat routinely?: YesAdvance DirectiveDo you have an advance directive?: YesDo you have a medical power of wire brush maker?: NoPublic Health and TravelHave you been to an area known to be high risk for COVID-19?: NoIn the 14 days before symptom onset, have you had close contact with a laboratory-confirmed COVID-19 while that case was ill?: NoIn the 14 days before symptom onset, have you had close contact with a person who is under investigation for COVID-19 while that person was ill?: NoDo you reside in or have you traveled to an area where Ebola virus transmission is active?: NoActivities of Daily LivingAre you able to care for yourself?: YesAre you blind or do you have difficulty seeing?: Yes (Notes: floater in right eye, has readers and contacts)Are you deaf or do you have serious difficulty hearing? : NoDo you have difficulty concentrating, remembering or making decisions?: Yes (Notes: remembering)Do you have difficulty walking or climbing stairs?: YesDo you have difficulty dressing or bathing?: NoDo you have difficulty doing errands alone?: Yes (Notes: sometimes)Are you able to walk?: Yes: walks without restrictionsDo you have transportation difficulties?: NoGender Identity and LGBTQ IdentityGender identity: Identifies as FemaleAssigned sex at : FemaleSexual orientation: Straight or heterosexual Do you or have you ever smok ed tobacco?: Never smokerHow much tobacco do you smoke?: NoneDo you or have you ever used any other forms of tobacco or nicotine?: NoDo you or have you ever used e-cigarettes or vape?: Never used electronic cigarettesWhat was the date of your most recent tobacco screening?: 05/19/2023Has tobacco cessation counseling been provided?: NoWhat is your level of alcohol consumption?: OccasionalHow many years have you consumed alcohol?: 32How many days in the past year have you consumed 4 or more drinks? : 0Have you ever been counseled for unhealthy alcohol use?: NoDo you use any illicit or recreational drugs?: NoWhich illicit or recreational drugs have you used?: NoneHave you used IV drugs?: NoWhat is your level of caffeine consumption?: ModerateEducation and OccupationWhat is the highest grade or level of school you have completed or the highest degree you have received?: Bachelor's degree (e.g., BA, AB, BS)Are you currently in school?: NoAre you currently employed?: NoWho is your employer?: DisabilityMarriage and SexualityWhat is your relationship status?: MarriedAre you sexually active?: YesDo you use protection during sex?: NoHow many children do you have?: 1Home and EnvironmentAre you a caregiver?: YesDo you have any pets?: YesDo you have smoke and carbon monoxide detectors in your home?: YesAre you passively exposed to smoke?: NoAre there any smokers in your house?: NoAre there any guns present in your home?: YesDiet and ExerciseWhat type of diet are you following?: RegularWhat is your exercise level?: NoneLifestyleDo you feel stressed (tense, restless, nervous, or anxious, or unable to sleep at night)?: To some extentDo you use your seat belt or car seat routinely?: YesAdvance DirectiveDo you have an advance directive?: YesDo you have a medical power of wire brush maker?: NoPublic Health and TravelHave you been to an area known to be high risk for COVID-19?: NoIn the 14 days before symptom onset, have you had close contact with a laboratory-confirmed COVID-19 while that case was ill?: NoIn the 14 days before symptom onset, have you had close contact with a person who is under investigation for COVID-19 while that person was ill?: NoDo you reside in or have you traveled to an area where Ebola virus transmission is active?: NoActivities of Daily LivingAre you able to care for yourself?: YesAre you blind or do you have difficulty seeing?: Yes (Notes: floater in right eye, has readers and contacts)Are you deaf or do you have serious difficulty hearing? : NoDo you have difficulty concentrating, remembering or making decisions?: Yes (Notes: remembering)Do you have difficulty walking or climbing stairs?: YesDo you have difficulty dressing or bathing?: NoDo you have difficulty doing errands alone?: Yes (Notes: sometimes)Are you able to walk?: Yes: walks without restrictionsDo you have transportation difficulties?: NoGender Identity and LGBTQ IdentityGender identity: Identifies as FemaleAssigned sex at : FemaleSexual orientation: Straight or heterosexual Problems Problem Type SNOMED Code ICD Code Onset Dates Problem Status W/U Status Risk Notes Problem Mild recurrent major depression (62394313) Major depressive disorder, recurrent, mild (F33.0) 05/19/19 24 Active confirmed Problem Generalized anxiety disorder (84503838) Generalized anxiety disorder (F41.1) 07/21/19 24 Active confirmed Problem Screening for cardiovascular system disease (449761158) Encounter for screening for cardiovascular disorders (Z13.6) Active confirmed Problem Inadequate social support (500736402) Other specified problems related to primary support group (Z63.8) 02/18/20 23 Active confirmed Problem Depression Screening (978492378) Encounter for screening for depression (Z13.31) Active confirmed Problem Weight gain (564803954) Weight gain (R63.5) Active confirmed Problem Menopause ([id number]) Menopause (Z78.0) Active confirmed Vital Signs Heart Rate 68 /min 09/25/2024 Respiratory Rate 16 /min 09/25/2024 Height-cm 177.80 cm 09/25/2024 Blood pressure diastolic 72 mm Hg 09/25/2024 Weight-kg 133.81 kg 09/25/2024 Height 70.00 in 09/25/2024 Blood pressure systolic 125 mm Hg 09/25/2024 Weight 295 lbs 09/25/2024 BMI 42.32 kg/m2 09/25/2024 Encounters Encounter Location Date Provider Diagnosis [facility] [address] [facility] [address] [place] [address] 11/23/2023 Aura Pearce Major depressive disorder, recurrent, mild F33.0 and Generalized anxiety disorder F41.1 [facility] [address] [facility] [address] [place] [address] 12/20/2023 Aura Pearce Major depressive disorder, recurrent, mild F33.0 and Generalized anxiety disorder F41.1 [facility], [place] [address] [facility] [address] [place] [address] 12/20/2023 Eliana Thermallory Major depressive disorder, recurrent, mild F33.0 ; Generalized anxiety disorder F41.1 and Other specified problems related to primary support group Z63.8 [facility], [place] [address] [facility] [address] [place] [address] 02/22/2024 Aura Pearce Major depressive disorder, recurrent, mild F33.0 and Generalized anxiety disorder F41.1 [place] [address] [facility] [address] [place] [address] 06/19/2024 Eliana Thermallory Encounter for screen ing for depression Z13.31 ; Major depressive disorder, recurrent, mild F33.0 ; Generalized anxiety disorder F41.1 ; Other specified problems related to primary support group Z63.8 and Encounter for screening for cardiovascular disorders Z13.[address] [address] 06/19/2024 Aura Pearce Encounter for screen ing for depression Z13.31 ; Major depressive disorder, recurrent, mild F33.0 and Generalized anxiety disorder F41.[address] [address] 07/23/2024 Aura Pearce Encounter for screen ing for depression Z13.31 ; Major depressive disorder, recurrent, mild F33.0 and Generalized anxiety disorder F41.[address] [address] 09/25/2024 Eliana Thermallory Encounter for screen ing for depression Z13.31 ; Major depressive disorder, recurrent, mild F33.0 ; Generalized anxiety disorder F41.1 ; Other specified problems related to primary support group Z63.8 ; Encounter for screening for cardiovascular disorders Z13.6 ; Weight gain R63.5 and Menopause Z78.[address] [address] 09/25/2024 Aura Pearce Major depressive disorder, recurrent, mild F33.0 ; Generalized anxiety disorder F41.1 and Encounter for screening for depression Z13.[address] [facility] [address] [place] [address] 10/23/2024 Aura Pearce Generalized anxiety disorder F41.1 and Major depressive disorder, recurrent, mild F33.0 Assessments Encounter Date Diagnosis (ICD Code) Assessment Notes Treatment Notes Treatment Clinical Notes Section Notes 11/23/2023 Major depressive disorder, recurrent, mild (ICD-10 - F33.0) 12/20/2023 Major depressive disorder, recurrent, mild (ICD-10 - F33.0) 12/20/2023 Major depressive disorder, recurrent, mild (ICD-10 - F33.0) 1. 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 education on serotonin syndrome [facility] 2. Generalized anxiety disorder - Prozac 40 mg daily stable Discussion Notes continue therapy Patient educated on all medications including potential benefits, side effects, risks. Educated on proper dosing schedule and importance of compliance http_s://www.nam i.org/About-Ment al-Illness/Menta g-Utqztd-Mnvesuk ons http_s://psychHallspot/deprsekou juventino/the-cogniti qf-snddnhzp-yd-d epression#treatm ents http__s://www.ni .nih.gov/healt h/topics/mental- health-medicatio ns http__s://www.na mi.org/About-Men micheline-Illness/Xena tments/Mental-He alth-Medications SSRI/SNRI side effects discussed including but not limited to, gastric upset, nausea, vomiting, diarrhea and/or constipation, weight changes, sexual side effects including loss of libido, increased suicidal thoughts/behavio rs in children and young adults, and serotonin syndrome. Medication Management and Follow-Up - Plan: - Schedule follow-up appointments every 1-3 months to monitor the patient's response to the medication regimen. - Reinforce the importance of avoiding recreational drug use due to potential neurotoxicity and interactions with prescribed medications. 02/22/2024 Major depressive disorder, recurrent, mild (ICD-10 - F33.0) 02/22/2024 Generalized anxiety disorder (ICD-10 - F41.1) 06/19/2024 Major depressive disorder, recurrent, mild (ICD-10 - F33.0) 06/19/2024 Encounter for screening for depression (ICD-10 - Z13.31) 07/23/2024 Encounter for screening for depression (ICD-10 - Z13.31) 09/25/2024 Major depressive disorder, recurrent, mild (ICD-10 - F33.0) 06/19/2024 Encounter for screening for depression (ICD-10 - Z13.31) 1. depression - Prozac 40 MG daily - educated on rx educated on all medications, benefits, side effects and risk, and educated on depression, anxiety, and mood d/o and educated on compliance of medications, metabolic and movement d/o education appointment's, continue therapy discussion with patient about course of treatment and patient instructions. education on serotonin syndrome [facility] 2. Generalized anxiety disorder - Prozac 40 mg daily stable Discussion Notes continue therapy Patient educated on all medications including potential benefits, side effects, risks. Educated on proper dosing schedule and importance of compliance http_s://www.nam i.org/About-Ment al-Illness/Menta e-Vgwtxe-Tlpigyp ons http_s://Genero/deprsekou juventino/the-cogniti tg-alhsikou-vs-d epression#treatm ents http__s://www.ni .nih.gov/healt h/topics/mental- health-medicatio ns http__s://www.na mi.org/About-Men micheline-Illness/Xena tments/Mental-He alth-Medications SSRI/SNRI side effects discussed including but not limited to, gastric upset, nausea, vomiting, diarrhea and/or constipation, weight changes, sexual side effects including loss of libido, increased suicidal thoughts/behavio rs in children and young adults, and serotonin syndrome. Medication Management and Follow-Up - Plan: - Schedule follow-up appointments every 1-3 months to monitor the patient's response to the medication regimen. - Reinforce the importance of avoiding recreational drug use due to potential neurotoxicity and interactions with prescribed medications. 07/23/2024 Major depressive disorder, recurrent, mild (ICD-10 - F33.0) 09/25/2024 Encounter for screening for depression (ICD-10 - Z13.31) 1. depression - Prozac 40 MG daily - educated on rx educated on all medications, benefits, side effects and risk, and educated on depression, anxiety, and mood d/o and educated on compliance of medications, metabolic and movement d/o education appointment's, continue therapy discussion with patient about course of treatment and patient instructions. education on serotonin syndrome [facility] 2. Generalized anxiety disorder - Prozac 40 mg daily stable Discussion Notes continue therapy 3. weight gain and menopausal Evidence suggests an active lifestyle and achieving and maintaining an ideal body weight (20-25 BMI) is optimal for health. Experts recommend at least 30 minutes of moderate to vigorous activity per day as tolerated, 5 days a week Eat healthy, including plenty of fresh fruits and vegetables daily. Strive to have 2/3 cup of your plate to be vegetables, fruits, whole grains and beans, while 1/3 or less should be an animal product. Choose fish and chicken and limit red meat and processed meats. Assess dietary pattern for daily intake of fruits, vegetables, and whole grains, as well as red and processed meats, alcohol, and processed foods or beverages with added fats and/or sugars. Assess timing of meals and snacking habits, portion size, frequency of eating out, and use of added fats and/or sugars to foods or beverages. All survivors should be encouraged to: Follow a predominantly nutrient-rich plant-based diet, including vegetables, fruit, and whole grains. Make informed choices about food to ensure variety and adequate nutrient intake. Limit consumption of red meat such as beef, pork, or penn to no more than 18 ounces (cooked) per week. Eat processed meats such as ham, hot dogs, deli cuts, perry, and sausage sparingly if at all. Limit consumption of fast foods and other processed foods that are high in fat, starches, or sugars such as chips, cookies, candy bars, desserts, processed baked goods, sugary cereals, and fried foods. Limit refined sugars to <6 tsp (25 g) for a 2000-calorie daily diet and <9 tsp (38 g) for a 3000-calorie daily diet. One medium cookie has about 2 tsp of sugar; a 12-oz can of a soft drink has about 10 tsp. Track calorie intake. Self-monitoring of food and beverage intake has been shown to be an effective strategy for weight management. Prolonged periods of fasting may impair adequate caloric and nutrient intake. Drink alcohol sparingly if at all. Lower levels of alcohol consumption are associated with a lower risk of cancer. For patients desiring further recommendations for dietary guidelines: Consider referral to a registered dietitian or slot operations manager. The USDA approximate food plate volumes (http_s://www.Healcerion plate.gov) are: Vegetables and fruits should comprise half the volume of food on the plate Vegetables: 30% of plate; fruits 20% of plate Whole grains: 30% of plate Protein: 20% of plate Recommended sources of dietary components: Fat: plant sources such as olive or canola oil, avocados, seeds and nuts, and fatty fish Carbohydrates: fruits, vegetables, whole grains, and legumes Protein: poultry, fish, legumes, low-fat dairy foods, and nuts While the risks and benefits of soy foods for cancer survivors have been debated for many years, most studies to date show that moderate consumption of soy foods (up to 3 servings per day) are beneficial in promoting overall health and survival, with the strongest evidence existing for the prevention of lung cancer and reduction of breast cancer recurrence. Practice portion control. Make informed food choices through routine evaluation of food labels. Incorporate physical activity, particularly strength training, to assure optimal lean body mass (SPA-1). Track weight, diet, calories, and physical activity routines (eg, journaling, mobile phone apps). Limit alcohol intake to one drink per day or less for a woman and two drinks or less per day for a man. Patient educated on all medications including potential benefits, side effects, risks. Educated on proper dosing schedule and importance of compliance http_s://www.nam i.org/About-Ment al-Illness/Menta q-Cytkcu-Mwlebci ons http_s://psychce ntral.com/deprsekou juventino/the-cogniti bj-tfmdmwpv-il-d epression#treatm ents http__s://www.ni mh.nih.gov/healt h/topics/mental- health-medicatio ns http__s://www.na mi.org/About-Men micheline-Illness/Xena tments/Mental-He alth-Medications SSRI/SNRI side effects discussed including but not limited to, gastric upset, nausea, vomiting, diarrhea and/or constipation, weight changes, sexual side effects including loss of libido, increased suicidal thoughts/behavio rs in children and young adults, and serotonin syndrome. Medication Management and Follow-Up - Plan: - Schedule follow-up appointments every 1-3 months to monitor the patient's response to the medication regimen. - Reinforce the importance of avoiding recreational drug use due to potential neurotoxicity and interactions with prescribed medications. 10/23/2024 Generalized anxiety disorder (ICD-10 - F41.1) 10/23/2024 Major depressive disorder, recurrent, mild (ICD-10 - F33.0) 07/23/2024 Generalized anxiety disorder (ICD-10 - F41.1) 09/25/2024 Major depressive disorder, recurrent, mild (ICD-10 - F33.0) 1. depression - Prozac 40 MG daily - educated on rx educated on all medications, benefits, side effects and risk, and educated on depression, anxiety, and mood d/o and educated on compliance of medications, metabolic and movement d/o education appointment's, continue therapy discussion with patient about course of treatment and patient instructions. education on serotonin syndrome [facility] 2. Generalized anxiety disorder - Prozac 40 mg daily stable Discussion Notes continue therapy 3. weight gain and menopausal Evidence suggests an active lifestyle and achieving and maintaining an ideal body weight (20-25 BMI) is optimal for health. Experts recommend at least 30 minutes of moderate to vigorous activity per day as tolerated, 5 days a week Eat healthy, including plenty of fresh fruits and vegetables daily. Strive to have 2/3 cup of your plate to be vegetables, fruits, whole grains and beans, while 1/3 or less should be an animal product. Choose fish and chicken and limit red meat and processed meats. Assess dietary pattern for daily intake of fruits, vegetables, and whole grains, as well as red and processed meats, alcohol, and processed foods or beverages with added fats and/or sugars. Assess timing of meals and snacking habits, portion size, frequency of eating out, and use of added fats and/or sugars to foods or beverages. All survivors should be encouraged to: Follow a predominantly nutrient-rich plant-based diet, including vegetables, fruit, and whole grains. Make informed choices about food to ensure variety and adequate nutrient intake. Limit consumption of red meat such as beef, pork, or penn to no more than 18 ounces (cooked) per week. Eat processed meats such as ham, hot dogs, deli cuts, perry, and sausage sparingly if at all. Limit consumption of fast foods and other processed foods that are high in fat, starches, or sugars such as chips, cookies, candy bars, desserts, processed baked goods, sugary cereals, and fried foods. Limit refined sugars to <6 tsp (25 g) for a 2000-calorie daily diet and <9 tsp (38 g) for a 3000-calorie daily diet. One medium cookie has about 2 tsp of sugar; a 12-oz can of a soft drink has about 10 tsp. Track calorie intake. Self-monitoring of food and beverage intake has been shown to be an effective strategy for weight management. Prolonged periods of fasting may impair adequate caloric and nutrient intake. Drink alcohol sparingly if at all. Lower levels of alcohol consumption are associated with a lower risk of cancer. For patients desiring further recommendations for dietary guidelines: Consider referral to a registered dietitian or slot operations manager. The USDA approximate food plate volumes (http_s://www.Healcerion plate.gov) are: Vegetables and fruits should comprise half the volume of food on the plate Vegetables: 30% of plate; fruits 20% of plate Whole grains: 30% of plate Protein: 20% of plate Recommended sources of dietary components: Fat: plant sources such as olive or canola oil, avocados, seeds and nuts, and fatty fish Carbohydrates: fruits, vegetables, whole grains, and legumes Protein: poultry, fish, legumes, low-fat dairy foods, and nuts While the risks and benefits of soy foods for cancer survivors have been debated for many years, most studies to date show that moderate consumption of soy foods (up to 3 servings per day) are beneficial in promoting overall health and survival, with the strongest evidence existing for the prevention of lung cancer and reduction of breast cancer recurrence. Practice portion control. Make informed food choices through routine evaluation of food labels. Incorporate physical activity, particularly strength training, to assure optimal lean body mass (SPA-1). Track weight, diet, calories, and physical activity routines (eg, journaling, mobile phone apps). Limit alcohol intake to one drink per day or less for a woman and two drinks or less per day for a man. Patient educated on all medications including potential benefits, side effects, risks. Educated on proper dosing schedule and importance of compliance http_s://www.nam i.org/About-Ment al-Illness/Menta s-Yjwsro-Mpzqrwv ons http_s://psychce Navent/deprsekou juventino/the-cogniti ah-lnjihlke-mx-d epression#treatm ents http__s://www.ni .nih.gov/healt h/topics/mental- health-medicatio ns http__s://www.na mi.org/About-Men micheline-Illness/Xena tments/Mental-He alth-Medications SSRI/SNRI side effects discussed including but not limited to, gastric upset, nausea, vomiting, diarrhea and/or constipation, weight changes, sexual side effects including loss of libido, increased suicidal thoughts/behavio rs in children and young adults, and serotonin syndrome. Medication Management and Follow-Up - Plan: - Schedule follow-up appointments every 1-3 months to monitor the patient's response to the medication regimen. - Reinforce the importance of avoiding recreational drug use due to potential neurotoxicity and interactions with prescribed medications. 09/25/2024 Generalized anxiety disorder (ICD-10 - F41.1) Learning About Generalized Anxiety Disorder material was published, Generalized Anxiety Disorder: Care Instructions material was published 1. depression - Prozac 40 MG daily - educated on rx educated on all medications, benefits, side effects and risk, and educated on depression, anxiety, and mood d/o and educated on compliance of medications, metabolic and movement d/o education appointment's, continue therapy discussion with patient about course of treatment and patient instructions. education on serotonin syndrome [facility] 2. Generalized anxiety disorder - Prozac 40 mg daily stable Discussion Notes continue therapy 3. weight gain and menopausal Evidence suggests an active lifestyle and achieving and maintaining an ideal body weight (20-25 BMI) is optimal for health. Experts recommend at least 30 minutes of moderate to vigorous activity per day as tolerated, 5 days a week Eat healthy, including plenty of fresh fruits and vegetables daily. Strive to have 2/3 cup of your plate to be vegetables, fruits, whole grains and beans, while 1/3 or less should be an animal product. Choose fish and chicken and limit red meat and processed meats. Assess dietary pattern for daily intake of fruits, vegetables, and whole grains, as well as red and processed meats, alcohol, and processed foods or beverages with added fats and/or sugars. Assess timing of meals and snacking habits, portion size, frequency of eating out, and use of added fats and/or sugars to foods or beverages. All survivors should be encouraged to: Follow a predominantly nutrient-rich plant-based diet, including vegetables, fruit, and whole grains. Make informed choices about food to ensure variety and adequate nutrient intake. Limit consumption of red meat such as beef, pork, or penn to no more than 18 ounces (cooked) per week. Eat processed meats such as ham, hot dogs, deli cuts, perry, and sausage sparingly if at all. Limit consumption of fast foods and other processed foods that are high in fat, starches, or sugars such as chips, cookies, candy bars, desserts, processed baked goods, sugary cereals, and fried foods. Limit refined sugars to <6 tsp (25 g) for a 2000-calorie daily diet and <9 tsp (38 g) for a 3000-calorie daily diet. One medium cookie has about 2 tsp of sugar; a 12-oz can of a soft drink has about 10 tsp. Track calorie intake. Self-monitoring of food and beverage intake has been shown to be an effective strategy for weight management. Prolonged periods of fasting may impair adequate caloric and nutrient intake. Drink alcohol sparingly if at all. Lower levels of alcohol consumption are associated with a lower risk of cancer. For patients desiring further recommendations for dietary guidelines: Consider referral to a registered dietitian or slot operations manager. The USDA approximate food plate volumes (http_s://www.Healcerion plate.gov) are: Vegetables and fruits should comprise half the volume of food on the plate Vegetables: 30% of plate; fruits 20% of plate Whole grains: 30% of plate Protein: 20% of plate Recommended sources of dietary components: Fat: plant sources such as olive or canola oil, avocados, seeds and nuts, and fatty fish Carbohydrates: fruits, vegetables, whole grains, and legumes Protein: poultry, fish, legumes, low-fat dairy foods, and nuts While the risks and benefits of soy foods for cancer survivors have been debated for many years, most studies to date show that moderate consumption of soy foods (up to 3 servings per day) are beneficial in promoting overall health and survival, with the strongest evidence existing for the prevention of lung cancer and reduction of breast cancer recurrence. Practice portion control. Make informed food choices through routine evaluation of food labels. Incorporate physical activity, particularly strength training, to assure optimal lean body mass (SPA-1). Track weight, diet, calories, and physical activity routines (eg, journaling, mobile phone apps). Limit alcohol intake to one drink per day or less for a woman and two drinks or less per day for a man. Patient educated on all medications including potential benefits, side effects, risks. Educated on proper dosing schedule and importance of compliance http_s://www.nam i.org/About-Ment al-Illness/Menta o-Lctipj-Ysrsqis ons http_s://Genero/roxana juventino/the-cogniti xz-ixnethea-ug-d epression#treatm ents http__s://www.ni .nih.gov/healt h/topics/mental- health-medicatio ns http__s://www.na mi.org/About-Men micheline-Illness/Xena tments/Mental-He alth-Medications SSRI/SNRI side effects discussed including but not limited to, gastric upset, nausea, vomiting, diarrhea and/or constipation, weight changes, sexual side effects including loss of libido, increased suicidal thoughts/behavio rs in children and young adults, and serotonin syndrome. Medication Management and Follow-Up - Plan: - Schedule follow-up appointments every 1-3 months to monitor the patient's response to the medication regimen. - Reinforce the importance of avoiding recreational drug use due to potential neurotoxicity and interactions with prescribed medications. 09/25/2024 Generalized anxiety disorder (ICD-10 - F41.1) 06/19/2024 Major depressive disorder, recurrent, mild (ICD-10 - F33.0) 1. depression - Prozac 40 MG daily - educated on rx educated on all medications, benefits, side effects and risk, and educated on depression, anxiety, and mood d/o and educated on compliance of medications, metabolic and movement d/o education appointment's, continue therapy discussion with patient about course of treatment and patient instructions. education on serotonin syndrome [facility] 2. Generalized anxiety disorder - Prozac 40 mg daily stable Discussion Notes continue therapy Patient educated on all medications including potential benefits, side effects, risks. Educated on proper dosing schedule and importance of compliance http_s://www.nam i.org/About-Ment al-Illness/Menta o-Zhnsvt-Hqbgvrk ons http_s://psychce Influx.com/depres juventino/the-cogniti ov-jajbhjlh-ob-d epression#treatm ents http__s://www.ni .nih.gov/healt h/topics/mental- health-medicatio ns http__s://www.na mi.org/About-Men micheline-Illness/Xena tments/Mental-He alth-Medications SSRI/SNRI side effects discussed including but not limited to, gastric upset, nausea, vomiting, diarrhea and/or constipation, weight changes, sexual side effects including loss of libido, increased suicidal thoughts/behavio rs in children and young adults, and serotonin syndrome. Medication Management and Follow-Up - Plan: - Schedule follow-up appointments every 1-3 months to monitor the patient's response to the medication regimen. - Reinforce the importance of avoiding recreational drug use due to potential neurotoxicity and interactions with prescribed medications. 06/19/2024 Generalized anxiety disorder (ICD-10 - F41.1) 12/20/2023 Generalized anxiety disorder (ICD-10 - F41.1) Learning About Generalized Anxiety Disorder material was published, Generalized Anxiety Disorder: Care Instructions material was published 1. 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 education on serotonin syndrome [facility] 2. Generalized anxiety disorder - Prozac 40 mg daily stable Discussion Notes continue therapy Patient educated on all medications including potential benefits, side effects, risks. Educated on proper dosing schedule and importance of compliance http_s://www.nam i.org/About-Ment al-Illness/Menta z-Jcepul-Hyrhymv ons http_s://psychStreamLine Call.com/depres juventino/the-cogniti qx-cpghftwc-nm-d epression#treatm ents http__s://www.ni .nih.gov/healt h/topics/mental- health-medicatio ns http__s://www.na mi.org/About-Men micheline-Illness/Xena tments/Mental-He alth-Medications SSRI/SNRI side effects discussed including but not limited to, gastric upset, nausea, vomiting, diarrhea and/or constipation, weight changes, sexual side effects including loss of libido, increased suicidal thoughts/behavio rs in children and young adults, and serotonin syndrome. Medication Management and Follow-Up - Plan: - Schedule follow-up appointments every 1-3 months to monitor the patient's response to the medication regimen. - Reinforce the importance of avoiding recreational drug use due to potential neurotoxicity and interactions with prescribed medications. 12/20/2023 Generalized anxiety disorder (ICD-10 - F41.1) 11/23/2023 Generalized anxiety disorder (ICD-10 - F41.1) 12/20/2023 Other specified problems related to primary support group (ICD-10 - Z63.8) 1. 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 education on serotonin syndrome [facility] 2. Generalized anxiety disorder - Prozac 40 mg daily stable Discussion Notes continue therapy Patient educated on all medications including potential benefits, side effects, risks. Educated on proper dosing schedule and importance of compliance http_s://www.nam i.org/About-Ment al-Illness/Menta y-Mhjccc-Znvynsm ons http_s://[employer].com/depres juventino/the-cogniti nv-ribykxgi-sf-d epression#treatm ents http__s://www.ni .nih.gov/healt h/topics/mental- health-medicatio ns http__s://www.na mi.org/About-Men micheline-Illness/Xena tments/Mental-He alth-Medications SSRI/SNRI side effects discussed including but not limited to, gastric upset, nausea, vomiting, diarrhea and/or constipation, weight changes, sexual side effects including loss of libido, increased suicidal thoughts/behavio rs in children and young adults, and serotonin syndrome. Medication Management and Follow-Up - Plan: - Schedule follow-up appointments every 1-3 months to monitor the patient's response to the medication regimen. - Reinforce the importance of avoiding recreational drug use due to potential neurotoxicity and interactions with prescribed medications. 06/19/2024 Generalized anxiety disorder (ICD-10 - F41.1) Learning About Generalized Anxiety Disorder material was published, Generalized Anxiety Disorder: Care Instructions material was published 1. depression - Prozac 40 MG daily - educated on rx educated on all medications, benefits, side effects and risk, and educated on depression, anxiety, and mood d/o and educated on compliance of medications, metabolic and movement d/o education appointment's, continue therapy discussion with patient about course of treatment and patient instructions. education on serotonin syndrome [facility] 2. Generalized anxiety disorder - Prozac 40 mg daily stable Discussion Notes continue therapy Patient educated on all medications including potential benefits, side effects, risks. Educated on proper dosing schedule and importance of compliance http_s://www.nam i.org/About-Ment al-Illness/Menta p-Kvgauw-Dmmdfft ons http_s://psychce Influx.com/deprsekou juventino/the-cogniti ul-xtcvzqvm-bk-d epression#treatm ents http__s://www.ni .nih.gov/healt h/topics/mental- health-medicatio ns http__s://www.na mi.org/About-Men micheline-Illness/Xena tments/Mental-He alth-Medications SSRI/SNRI side effects discussed including but not limited to, gastric upset, nausea, vomiting, diarrhea and/or constipation, weight changes, sexual side effects including loss of libido, increased suicidal thoughts/behavio rs in children and young adults, and serotonin syndrome. Medication Management and Follow-Up - Plan: - Schedule follow-up appointments every 1-3 months to monitor the patient's response to the medication regimen. - Reinforce the importance of avoiding recreational drug use due to potential neurotoxicity and interactions with prescribed medications. 09/25/2024 Encounter for screening for depression (ICD-10 - Z13.31) 09/25/2024 Other specified problems related to primary support group (ICD-10 - Z63.8) 1. depression - Prozac 40 MG daily - educated on rx educated on all medications, benefits, side effects and risk, and educated on depression, anxiety, and mood d/o and educated on compliance of medications, metabolic and movement d/o education appointment's, continue therapy discussion with patient about course of treatment and patient instructions. education on serotonin syndrome [facility] 2. Generalized anxiety disorder - Prozac 40 mg daily stable Discussion Notes continue therapy 3. weight gain and menopausal Evidence suggests an active lifestyle and achieving and maintaining an ideal body weight (20-25 BMI) is optimal for health. Experts recommend at least 30 minutes of moderate to vigorous activity per day as tolerated, 5 days a week Eat healthy, including plenty of fresh fruits and vegetables daily. Strive to have 2/3 cup of your plate to be vegetables, fruits, whole grains and beans, while 1/3 or less should be an animal product. Choose fish and chicken and limit red meat and processed meats. Assess dietary pattern for daily intake of fruits, vegetables, and whole grains, as well as red and processed meats, alcohol, and processed foods or beverages with added fats and/or sugars. Assess timing of meals and snacking habits, portion size, frequency of eating out, and use of added fats and/or sugars to foods or beverages. All survivors should be encouraged to: Follow a predominantly nutrient-rich plant-based diet, including vegetables, fruit, and whole grains. Make informed choices about food to ensure variety and adequate nutrient intake. Limit consumption of red meat such as beef, pork, or penn to no more than 18 ounces (cooked) per week. Eat processed meats such as ham, hot dogs, deli cuts, perry, and sausage sparingly if at all. Limit consumption of fast foods and other processed foods that are high in fat, starches, or sugars such as chips, cookies, candy bars, desserts, processed baked goods, sugary cereals, and fried foods. Limit refined sugars to <6 tsp (25 g) for a 2000-calorie daily diet and <9 tsp (38 g) for a 3000-calorie daily diet. One medium cookie has about 2 tsp of sugar; a 12-oz can of a soft drink has about 10 tsp. Track calorie intake. Self-monitoring of food and beverage intake has been shown to be an effective strategy for weight management. Prolonged periods of fasting may impair adequate caloric and nutrient intake. Drink alcohol sparingly if at all. Lower levels of alcohol consumption are associated with a lower risk of cancer. For patients desiring further recommendations for dietary guidelines: Consider referral to a registered dietitian or slot operations manager. The USDA approximate food plate volumes (http_s://www.Healcerion plate.gov) are: Vegetables and fruits should comprise half the volume of food on the plate Vegetables: 30% of plate; fruits 20% of plate Whole grains: 30% of plate Protein: 20% of plate Recommended sources of dietary components: Fat: plant sources such as olive or canola oil, avocados, seeds and nuts, and fatty fish Carbohydrates: fruits, vegetables, whole grains, and legumes Protein: poultry, fish, legumes, low-fat dairy foods, and nuts While the risks and benefits of soy foods for cancer survivors have been debated for many years, most studies to date show that moderate consumption of soy foods (up to 3 servings per day) are beneficial in promoting overall health and survival, with the strongest evidence existing for the prevention of lung cancer and reduction of breast cancer recurrence. Practice portion control. Make informed food choices through routine evaluation of food labels. Incorporate physical activity, particularly strength training, to assure optimal lean body mass (SPA-1). Track weight, diet, calories, and physical activity routines (eg, journaling, mobile phone apps). Limit alcohol intake to one drink per day or less for a woman and two drinks or less per day for a man. Patient educated on all medications including potential benefits, side effects, risks. Educated on proper dosing schedule and importance of compliance http_s://www.nam i.org/About-Ment al-Illness/Menta o-Cocwko-Uqpmicw ons http_s://psychce Influx.com/depres juventino/the-cogniti xd-agqkjcsk-pr-d epression#treatm ents http__s://www.ni .nih.gov/healt h/topics/mental- health-medicatio ns http__s://www.na al.org/About-Men micheline-Illness/Xena tments/Mental-He alth-Medications SSRI/SNRI side effects discussed including but not limited to, gastric upset, nausea, vomiting, diarrhea and/or constipation, weight changes, sexual side effects including loss of libido, increased suicidal thoughts/behavio rs in children and young adults, and serotonin syndrome. Medication Management and Follow-Up - Plan: - Schedule follow-up appointments every 1-3 months to monitor the patient's response to the medication regimen. - Reinforce the importance of avoiding recreational drug use due to potential neurotoxicity and interactions with prescribed medications. 06/19/2024 Other specified problems related to primary support group (ICD-10 - Z63.8) 1. depression - Prozac 40 MG daily - educated on rx educated on all medications, benefits, side effects and risk, and educated on depression, anxiety, and mood d/o and educated on compliance of medications, metabolic and movement d/o education appointment's, continue therapy discussion with patient about course of treatment and patient instructions. education on serotonin syndrome [facility] 2. Generalized anxiety disorder - Prozac 40 mg daily stable Discussion Notes continue therapy Patient educated on all medications including potential benefits, side effects, risks. Educated on proper dosing schedule and importance of compliance http_s://www.nam i.org/About-Ment al-Illness/Menta q-Vmblol-Ramkddc ons http_s://psychce GrayBugal.com/depres juventino/the-cogniti cv-bntddrii-ml-d epression#treatm ents http__s://www.ni .nih.gov/healt h/topics/mental- health-medicatio ns http__s://www.na al.org/About-Men micheline-Illness/Xena tments/Mental-He alth-Medications SSRI/SNRI side effects discussed including but not limited to, gastric upset, nausea, vomiting, diarrhea and/or constipation, weight changes, sexual side effects including loss of libido, increased suicidal thoughts/behavio rs in children and young adults, and serotonin syndrome. Medication Management and Follow-Up - Plan: - Schedule follow-up appointments every 1-3 months to monitor the patient's response to the medication regimen. - Reinforce the importance of avoiding recreational drug use due to potential neurotoxicity and interactions with prescribed medications. 09/25/2024 Encounter for screening for cardiovascular disorders (ICD-10 - Z13.6) 1. depression - Prozac 40 MG daily - educated on rx educated on all medications, benefits, side effects and risk, and educated on depression, anxiety, and mood d/o and educated on compliance of medications, metabolic and movement d/o education appointment's, continue therapy discussion with patient about course of treatment and patient instructions. education on serotonin syndrome [facility] 2. Generalized anxiety disorder - Prozac 40 mg daily stable Discussion Notes continue therapy 3. weight gain and menopausal Evidence suggests an active lifestyle and achieving and maintaining an ideal body weight (20-25 BMI) is optimal for health. Experts recommend at least 30 minutes of moderate to vigorous activity per day as tolerated, 5 days a week Eat healthy, including plenty of fresh fruits and vegetables daily. Strive to have 2/3 cup of your plate to be vegetables, fruits, whole grains and beans, while 1/3 or less should be an animal product. Choose fish and chicken and limit red meat and processed meats. Assess dietary pattern for daily intake of fruits, vegetables, and whole grains, as well as red and processed meats, alcohol, and processed foods or beverages with added fats and/or sugars. Assess timing of meals and snacking habits, portion size, frequency of eating out, and use of added fats and/or sugars to foods or beverages. All survivors should be encouraged to: Follow a predominantly nutrient-rich plant-based diet, including vegetables, fruit, and whole grains. Make informed choices about food to ensure variety and adequate nutrient intake. Limit consumption of red meat such as beef, pork, or penn to no more than 18 ounces (cooked) per week. Eat processed meats such as ham, hot dogs, deli cuts, perry, and sausage sparingly if at all. Limit consumption of fast foods and other processed foods that are high in fat, starches, or sugars such as chips, cookies, candy bars, desserts, processed baked goods, sugary cereals, and fried foods. Limit refined sugars to <6 tsp (25 g) for a 2000-calorie daily diet and <9 tsp (38 g) for a 3000-calorie daily diet. One medium cookie has about 2 tsp of sugar; a 12-oz can of a soft drink has about 10 tsp. Track calorie intake. Self-monitoring of food and beverage intake has been shown to be an effective strategy for weight management. Prolonged periods of fasting may impair adequate caloric and nutrient intake. Drink alcohol sparingly if at all. Lower levels of alcohol consumption are associated with a lower risk of cancer. For patients desiring further recommendations for dietary guidelines: Consider referral to a registered dietitian or slot operations manager. The [employer] approximate food plate volumes (http_s://www.Healcerion plate.gov) are: Vegetables and fruits should comprise half the volume of food on the plate Vegetables: 30% of plate; fruits 20% of plate Whole grains: 30% of plate Protein: 20% of plate Recommended sources of dietary components: Fat: plant sources such as olive or canola oil, avocados, seeds and nuts, and fatty fish Carbohydrates: fruits, vegetables, whole grains, and legumes Protein: poultry, fish, legumes, low-fat dairy foods, and nuts While the risks and benefits of soy foods for cancer survivors have been debated for many years, most studies to date show that moderate consumption of soy foods (up to 3 servings per day) are beneficial in promoting overall health and survival, with the strongest evidence existing for the prevention of lung cancer and reduction of breast cancer recurrence. Practice portion control. Make informed food choices through routine evaluation of food labels. Incorporate physical activity, particularly strength training, to assure optimal lean body mass (SPA-1). Track weight, diet, calories, and physical activity routines (eg, journaling, mobile phone apps). Limit alcohol intake to one drink per day or less for a woman and two drinks or less per day for a man. Patient educated on all medications including potential benefits, side effects, risks. Educated on proper dosing schedule and importance of compliance http_s://www.nam i.org/About-Ment al-Illness/Menta s-Ljmocz-Aptbigl ons http_s://psychce Influx.com/depres juventino/the-cogniti fg-nrhmecow-gc-d epression#treatm ents http__s://www.ni .nih.gov/healt h/topics/mental- health-medicatio ns http__s://www.na mi.org/About-Men micheline-Illness/Xena tments/Mental-He alth-Medications SSRI/SNRI side effects discussed including but not limited to, gastric upset, nausea, vomiting, diarrhea and/or constipation, weight changes, sexual side effects including loss of libido, increased suicidal thoughts/behavio rs in children and young adults, and serotonin syndrome. Medication Management and Follow-Up - Plan: - Schedule follow-up appointments every 1-3 months to monitor the patient's response to the medication regimen. - Reinforce the importance of avoiding recreational drug use due to potential neurotoxicity and interactions with prescribed medications. 09/25/2024 Weight gain (ICD-10 - R63.5) 1. depression - Prozac 40 MG daily - educated on rx educated on all medications, benefits, side effects and risk, and educated on depression, anxiety, and mood d/o and educated on compliance of medications, metabolic and movement d/o education appointment's, continue therapy discussion with patient about course of treatment and patient instructions. education on serotonin syndrome [facility] 2. Generalized anxiety disorder - Prozac 40 mg daily stable Discussion Notes continue therapy 3. weight gain and menopausal Evidence suggests an active lifestyle and achieving and maintaining an ideal body weight (20-25 BMI) is optimal for health. Experts recommend at least 30 minutes of moderate to vigorous activity per day as tolerated, 5 days a week Eat healthy, including plenty of fresh fruits and vegetables daily. Strive to have 2/3 cup of your plate to be vegetables, fruits, whole grains and beans, while 1/3 or less should be an animal product. Choose fish and chicken and limit red meat and processed meats. Assess dietary pattern for daily intake of fruits, vegetables, and whole grains, as well as red and processed meats, alcohol, and processed foods or beverages with added fats and/or sugars. Assess timing of meals and snacking habits, portion size, frequency of eating out, and use of added fats and/or sugars to foods or beverages. All survivors should be encouraged to: Follow a predominantly nutrient-rich plant-based diet, including vegetables, fruit, and whole grains. Make informed choices about food to ensure variety and adequate nutrient intake. Limit consumption of red meat such as beef, pork, or penn to no more than 18 ounces (cooked) per week. Eat processed meats such as ham, hot dogs, deli cuts, perry, and sausage sparingly if at all. Limit consumption of fast foods and other processed foods that are high in fat, starches, or sugars such as chips, cookies, candy bars, desserts, processed baked goods, sugary cereals, and fried foods. Limit refined sugars to <6 tsp (25 g) for a 2000-calorie daily diet and <9 tsp (38 g) for a 3000-calorie daily diet. One medium cookie has about 2 tsp of sugar; a 12-oz can of a soft drink has about 10 tsp. Track calorie intake. Self-monitoring of food and beverage intake has been shown to be an effective strategy for weight management. Prolonged periods of fasting may impair adequate caloric and nutrient intake. Drink alcohol sparingly if at all. Lower levels of alcohol consumption are associated with a lower risk of cancer. For patients desiring further recommendations for dietary guidelines: Consider referral to a registered dietitian or slot operations manager. The USDA approximate food plate volumes (http_s://www.Healcerion plate.gov) are: Vegetables and fruits should comprise half the volume of food on the plate Vegetables: 30% of plate; fruits 20% of plate Whole grains: 30% of plate Protein: 20% of plate Recommended sources of dietary components: Fat: plant sources such as olive or canola oil, avocados, seeds and nuts, and fatty fish Carbohydrates: fruits, vegetables, whole grains, and legumes Protein: poultry, fish, legumes, low-fat dairy foods, and nuts While the risks and benefits of soy foods for cancer survivors have been debated for many years, most studies to date show that moderate consumption of soy foods (up to 3 servings per day) are beneficial in promoting overall health and survival, with the strongest evidence existing for the prevention of lung cancer and reduction of breast cancer recurrence. Practice portion control. Make informed food choices through routine evaluation of food labels. Incorporate physical activity, particularly strength training, to assure optimal lean body mass (SPA-1). Track weight, diet, calories, and physical activity routines (eg, journaling, mobile phone apps). Limit alcohol intake to one drink per day or less for a woman and two drinks or less per day for a man. Patient educated on all medications including potential benefits, side effects, risks. Educated on proper dosing schedule and importance of compliance http_s://www.nam i.org/About-Ment al-Illness/Menta d-Nncrkj-Zxzmatk ons http_s://[employer]able/depres juventino/the-cogniti ej-vkqpaenz-ea-d epression#treatm ents http__s://www.ni .nih.gov/healt h/topics/mental- health-medicatio ns http__s://www.na mi.org/About-Men micheline-Illness/Xena tments/Mental-He alth-Medications SSRI/SNRI side effects discussed including but not limited to, gastric upset, nausea, vomiting, diarrhea and/or constipation, weight changes, sexual side effects including loss of libido, increased suicidal thoughts/behavio rs in children and young adults, and serotonin syndrome. Medication Management and Follow-Up - Plan: - Schedule follow-up appointments every 1-3 months to monitor the patient's response to the medication regimen. - Reinforce the importance of avoiding recreational drug use due to potential neurotoxicity and interactions with prescribed medications. 06/19/2024 Encounter for screening for cardiovascular disorders (ICD-10 - Z13.6) 1. depression - Prozac 40 MG daily - educated on rx educated on all medications, benefits, side effects and risk, and educated on depression, anxiety, and mood d/o and educated on compliance of medications, metabolic and movement d/o education appointment's, continue therapy discussion with patient about course of treatment and patient instructions. education on serotonin syndrome [facility] 2. Generalized anxiety disorder - Prozac 40 mg daily stable Discussion Notes continue therapy Patient educated on all medications including potential benefits, side effects, risks. Educated on proper dosing schedule and importance of compliance http_s://www.nam i.org/About-Ment al-Illness/Menta i-Gcpsmb-Hbnubny ons http_s://[employer].Propable/depres juventino/the-cogniti bn-vmwairlv-ar-d epression#treatm ents http__s://www.ni .nih.gov/healt h/topics/mental- health-medicatio ns http__s://www.na mi.org/About-Men micheline-Illness/Xena salesnts/Mental-He alth-Medications SSRI/SNRI side effects discussed including but not limited to, gastric upset, nausea, vomiting, diarrhea and/or constipation, weight changes, sexual side effects including loss of libido, increased suicidal thoughts/behavio rs in children and young adults, and serotonin syndrome. Medication Management and Follow-Up - Plan: - Schedule follow-up appointments every 1-3 months to monitor the patient's response to the medication regimen. - Reinforce the importance of avoiding recreational drug use due to potential neurotoxicity and interactions with prescribed medications. 09/25/2024 Menopause (ICD-10 - Z78.0) 1. depression - Prozac 40 MG daily - educated on rx educated on all medications, benefits, side effects and risk, and educated on depression, anxiety, and mood d/o and educated on compliance of medications, metabolic and movement d/o education appointment's, continue therapy discussion with patient about course of treatment and patient instructions. education on serotonin syndrome [facility] 2. Generalized anxiety disorder - Prozac 40 mg daily stable Discussion Notes continue therapy 3. weight gain and menopausal Evidence suggests an active lifestyle and achieving and maintaining an ideal body weight (20-25 BMI) is optimal for health. Experts recommend at least 30 minutes of moderate to vigorous activity per day as tolerated, 5 days a week Eat healthy, including plenty of fresh fruits and vegetables daily. Strive to have 2/3 cup of your plate to be vegetables, fruits, whole grains and beans, while 1/3 or less should be an animal product. Choose fish and chicken and limit red meat and processed meats. Assess dietary pattern for daily intake of fruits, vegetables, and whole grains, as well as red and processed meats, alcohol, and processed foods or beverages with added fats and/or sugars. Assess timing of meals and snacking habits, portion size, frequency of eating out, and use of added fats and/or sugars to foods or beverages. All survivors should be encouraged to: Follow a predominantly nutrient-rich plant-based diet, including vegetables, fruit, and whole grains. Make informed choices about food to ensure variety and adequate nutrient intake. Limit consumption of red meat such as beef, pork, or penn to no more than 18 ounces (cooked) per week. Eat processed meats such as ham, hot dogs, deli cuts, perry, and sausage sparingly if at all. Limit consumption of fast foods and other processed foods that are high in fat, starches, or sugars such as chips, cookies, candy bars, desserts, processed baked goods, sugary cereals, and fried foods. Limit refined sugars to <6 tsp (25 g) for a 2000-calorie daily diet and <9 tsp (38 g) for a 3000-calorie daily diet. One medium cookie has about 2 tsp of sugar; a 12-oz can of a soft drink has about 10 tsp. Track calorie intake. Self-monitoring of food and beverage intake has been shown to be an effective strategy for weight management. Prolonged periods of fasting may impair adequate caloric and nutrient intake. Drink alcohol sparingly if at all. Lower levels of alcohol consumption are associated with a lower risk of cancer. For patients desiring further recommendations for dietary guidelines: Consider referral to a registered dietitian or slot operations manager. The USDA approximate food plate volumes (http_s://www.Healcerion plate.gov) are: Vegetables and fruits should comprise half the volume of food on the plate Vegetables: 30% of plate; fruits 20% of plate Whole grains: 30% of plate Protein: 20% of plate Recommended sources of dietary components: Fat: plant sources such as olive or canola oil, avocados, seeds and nuts, and fatty fish Carbohydrates: fruits, vegetables, whole grains, and legumes Protein: poultry, fish, legumes, low-fat dairy foods, and nuts While the risks and benefits of soy foods for cancer survivors have been debated for many years, most studies to date show that moderate consumption of soy foods (up to 3 servings per day) are beneficial in promoting overall health and survival, with the strongest evidence existing for the prevention of lung cancer and reduction of breast cancer recurrence. Practice portion control. Make informed food choices through routine evaluation of food labels. Incorporate physical activity, particularly strength training, to assure optimal lean body mass (SPA-1). Track weight, diet, calories, and physical activity routines (eg, journaling, mobile phone apps). Limit alcohol intake to one drink per day or less for a woman and two drinks or less per day for a man. Patient educated on all medications including potential benefits, side effects, risks. Educated on proper dosing schedule and importance of compliance http_s://www.nam i.org/About-Ment al-Illness/Menta h-Hsupqy-Cbwtoux ons http_s://psychce Navent/roxana jauregui/the-cogniti ut-vjunyvvg-yv-d epression#treatm ents http__s://www.ni .nih.gov/healt h/topics/mental- health-medicatio ns http__s://www.na mi.org/About-Men micheline-Illness/Xena tments/Mental-He alth-Medications SSRI/SNRI side effects discussed including but not limited to, gastric upset, nausea, vomiting, diarrhea and/or constipation, weight changes, sexual side effects including loss of libido, increased suicidal thoughts/behavio rs in children and young adults, and serotonin syndrome. Medication Management and Follow-Up - Plan: - Schedule follow-up appointments every 1-3 months to monitor the patient's response to the medication regimen. - Reinforce the importance of avoiding recreational drug use due to potential neurotoxicity and interactions with prescribed medications. 11/23/2023 Other Client reports that after her friend , her son got a concussion during football practice and then it was found he has a heart murmer, I don't feel like I can catch a break. It turned out to be a non-issue which was a relief. She is most frustrated by her 's unwillingness to take care of his own health issues. He wants client to make is appointments, etc. and client is tired of him not taking responsibility for himself. Therapist actively listened to client and utilized a cognitive behavioral intervention to help client explore strategies to minimize her frustration/anxi ety (setting positive reminders up around the home, mindfulness and grounding techniques). 12/20/2023 Other Client came in to the the therapy session excited about pictures she took at her son's football game. She takes pictures for the team and is it something that relaxes her and improves her mood. She is doing better with not getting frustrated with her when he does not participate in family activities. Therapist actively listened to client and utilized a cognitive behavioral intervention to help client explore strategies to maintain her current level of mental health 02/22/2024 Other Client reports issues with her eyes. She states she has been setting boundaries with her in that she is not prepping things for him (for example cleaning out the game room so he and son can watch the races unless they are willing to help with the prep). Therapist actively listened to client and provided a supportive intervention by helping client maintain her current level of functioning through the showing of acceptance. PHQ=7 mild SREEDHAR=6 mild 06/19/2024 Other Client reports there have been a number of serious illnesses in the family as well as a couple of deaths, since she was last seen for therapy. She was recently rewarded for taking care of a friend, and this is making life easier. Therapist actively listened to client and asked questions for clarification. The therapist then provided a supportive intervention by helping client maintain her current level of functioning through the showing of acceptance. PHq=8 mild 07/23/2024 Other Client reports her marriage has been a roller coaster since last visit. Client went into great detail about the issues. Her mood has been up and down due to their issues. She has continued to take care of her responsibilititi es. Therapist actively listened to client and asked questions for clarification. The therapist then provided a supportive intervention by helping client maintain her current level of functioning through the showing of acceptance. PHQ=6 mild SREEDHAR=7 mild 09/25/2024 Other Client reports she and have been working on their marriage (client had found that he was contacting another woman). She states she has not been motivated to do much around the home. She states that she feels menopause has something to do with gaining weight. She has a bunch of paperwork she needs to take care of as well as needing to make several doctors appointments. Therapist actively listened to client and utilized a cognitve behavioral intervention to help client explore strategies to improve her motivation. PHQ=7 mild SREEDHAR=4 minimal 10/23/2024 Other Client continues to be stressed by her 's lack of contributing any energy to making the household work. Therapist allowed client to vent and asked questions for clarification, Therapist then utilized a cognitive behavioral intervention to help client explore strategies to create balance in her thoughts so she does not feel so angry all the time. PHQ=7 mild SREEDHAR=10 moderate Plan Of Treatment Next Appt Details Provider Name:Aura Pearce , 11/20/2024 09:00:00 AM, [address], [address], [place], [address], Provider Name:Aura Pearce , 12/25/2024 01:00:00 PM, [address], [address], [place], [address], Provider Name:Eliana Bakari , 12/25/2024 02:15:00 PM, [address], [address], [place], [address], Insurance Providers Payer Name Payer Address Payer Phone Subscriber Number Group Number Insured Name Patient Relationship to Insured Coverage Start Date Coverage End Date [employer] [address] [place] [address] [id number] VICKY SILVERMAN Self - patient is the insured 4 [facility] [address] [place] [address] [id number] VICKY SILVERMAN Self - patient is the insured 5 Medical (General) History Medical History History ICD Code Problems: Disorder of vitamin B12 Generalized anxiety disorder History of SARS-CoV-2 Mild recurrent major depression Moderate recurrent major depression Recurrent major depressive episodes, mod erate Severe recurrent major depression Stress due to family tension Vitamin D deficiency Weight gain , Anxiety Disorder: Y Depressi on Major: Y Fibromyalgia: Y Headaches: Y Headaches Migraines: Y Obesity: Y Osteoarthritis: Y Vision or Eye Problems: Y Surgical History Surgery Date(Month/Year) Tonsilectomy/adenoids 03/14/1975 Sinus surgery 03/14/1997 Other 11/06/1999 Any surgical history 02/19/2008 Any Surgical History - 02/18 Other - 11/06/1999 Sinus Surgery - 03/14/1997 tonsilectomy/adenoids - 03/14/1975, rt rotator 2023
--- OUTSIDE RECORDS SUMMARY | 2024-11-15 07:37 | XMS_ITS | Patient Health Record ---
Author Organization [facility] Address [address] [facility] Hern[facility]dez [facility] [address] [place], [place] [id number] Care Team Providers Care Box Lidder Name Role Phone LB INGRAM Primary Care Provider Ruby Kebede Unavailable [phone] Codie Lema Unavailable [phone] ALLERGIES No Known Allergies RESULTS Component Value Reference Range Notes AST (SGOT) Reviewed date:02/03/2024 03:44:17 PM Interpretation: Performing Lab:[facility], [address] [place] [address], Phone - [phone], Director - Caryn Notes/Report: AST (SGOT) 19 0-40 IU/L Creatinine, Serum Reviewed date:02/03/2024 03:44:17 PM Interpretation: Performing Lab:[facility], [address] [place] [address], Phone - [phone], Director - Caryn Notes/Report: Creatinine 0.65 0.57-1.00 mg/dL eGFR 103 >59 mL/min/1.73 ALT (SGPT) Reviewed date:02/03/2024 03:44:17 PM Interpretation: Performing Lab:[facility] [address] [place] [address], Phone - [phone], Director - Caryn Notes/Report: ALT (SGPT) 19 0-32 IU/L CBC With Differential/Platel et Reviewed date:02/03/2024 03:44:17 PM Interpretation: Performing Lab:[facility], [address] [place] [address], Phone - [phone], Director - Caryn Notes/Report: WBC 8.9 3.4-10.8 x10E3/uL Effective February 13, 2024 profile [id number] WBC will be made non-orderable as a [...] Westergren Reviewed date:02/03/2024 03:44:17 PM Interpretation: Performing Lab:[facility] [address], Phone - [phone], [facility] Notes/Report: Sedimentation Rate-Westergren 17 0-40 mm/hr C-Reactive Protein, Quant Reviewed date:02/03/2024 03:44:17 PM Interpretation: Performing Lab:[facility] [address], Phone - [phone], Director - [facility] Notes/Report: C-Reactive Protein, Quant 13 0-10 mg/L VITAMIN D, 25-HYDROXY, LC/MS /MS Reviewed date:02/05/2024 07:47:50 PM Interpretation: Performing Lab:[facility] [address], Phone - [phone], Director - [facility] Notes/Report: Vitamin D, 25-Hydroxy 23.5 30.0-100.0 ng/mL Vitamin D deficiency has been defined by the [place] of Medicine and an Endocrine Society practice guideline as a level of serum 25-OH vitamin D less than 20 ng/mL (1,2). The Endocrine Society went on to further define vitamin D insufficiency as a level between 21 and 29 ng/mL (2). 1. IOM ([place] of Medicine). 2010. Dietary reference intakes for calcium and D. [place]o [place]: The National [employer]. 2. Elder MF, Veronica NC, Nolberto BOSTON, et al. Evaluation, treatment, and prevention of vitamin D deficiency: an Endocrine Society clinical practice guideline. JCEM. 2010; 96(7):1911-30. AST (SGOT) Reviewed date:08/02/2024 12:38:24 PM Interpretation: Performing Lab:[facility], Phone - [phone], Director - [facility] Notes/Report: AST (SGOT) 11 0-40 IU/L Creatinine, Serum Reviewed date:08/02/2024 12:38:24 PM Interpretation: Performing Lab:[facility], Phone - [phone], Director - [facility] Notes/Report: Creatinine 0.61 0.57-1.00 mg/dL eGFR 105 >59 mL/min/1.73 ALT (SGPT) Reviewed date:08/02/2024 12:38:24 PM Interpretation: Performing Lab:[facility], Phone - [phone], Director - [facility] Notes/Report: ALT (SGPT) 10 0-32 IU/L CBC With Differential/Platel et Reviewed date:08/02/2024 12:38:24 PM Interpretation: Performing Lab:[facility], Phone - [phone], Director - [facility] Notes/Report: WBC 7.2 3.4-10.8 x10E3/uL RBC 4.74 [...] Westergren Reviewed date:08/02/2024 12:38:24 PM Interpretation: Performing Lab:[facility] [address], Phone - [phone], Director - [facility] Notes/Report: Sedimentation Rate-Westergren 28 0-40 mm/hr Rheumatoid Arthritis Factor Reviewed date:08/02/2024 12:38:24 PM Interpretation: Performing Lab:[facility] [address], Phone - [phone], Director - [facility] Notes/Report: Rheumatoid Factor (RF) <10.0 <14.0 IU/mL C-Reactive Protein, Quant Reviewed date:08/02/2024 12:38:24 PM Interpretation: Performing Lab:[facility] [address], Phone - [phone], Director - [facility] Notes/Report: C-Reactive Protein, Quant 9 0-10 mg/L CCP IgG Antibodies Reviewed date:08/02/2024 12:38:24 PM Interpretation: Performing Lab:[facility] [address], Phone - [phone], Director - Caryn Notes/Report: Anti-CCP Ab, IgG/IgA 13 0-19 units Negative <20 Weak positive 20 - 39 Moderate positive 40 - 59 Strong positive >59 REASON FOR REFERRAL No Information MEDICATIONS Medication SIG (Take, Route, Frequency, Duration) [...] units 1 cap(s) orally once a week Active Vitamin B12 250 mcg 1 tab(s) orally once a day Active PROBLEMS Problem Type ICD Code Onset Dates Problem Status W/U Status Risk SNOMED Code Notes Problem Elevated C-reactive protein (CRP) (R79.82) Active confirmed 741263953 Problem Vitamin D deficiency, unspecified (E55.9) Active confirmed 97184579 Problem Other extermination supervisor (current) drug therapy (Z79.899) Active confirmed 846120163 Problem Fibromyalgia (M79.7) Active confirmed 64074721 Problem Polyarthritis (M13.0) Active confirmed Polyarthritis (450093012) Problem Acute pain of right knee (M25.561) Active confirmed 92409858 Problem Primary generalized (osteo)arthritis (M15.0) Active confirmed 502103029 Problem Non-smoker (Z78.9) Active confirmed 6790968 Problem Paresthesia (R20.2) Active confirmed Paresthesia (61193995) Problem Sacroiliac joint pain (M53.3) Active confirmed 004898922 VITAL SIGNS Heart Rate 80 /min 08/01/2024 Blood pressure diastolic 61 mm Hg 08/01/2024 Height 70 in 08/01/2024 Blood pressure systolic 142 mm Hg 08/01/2024 Weight 298 lbs 08/01/2024 BMI 42.75 kg/m2 08/01/2024 Encounters Encounter Location Date Provider Diagnosis [facility] [address], [address] [place], [place] [phone] 01/26/2024 Codie Lem[facility] [address] [place] [id number] 02/02/2024 Codie Lema Fibromyalgia M79.7 ; Primary generalized (osteo)arthritis M15.0 ; Other chcf (current) drug therapy Z79.899 ; Vitamin D deficiency, unspecified E55.9 ; Left foot pain M79.672 ; Paresthesia R20.2 ; Xerostomia K11.7 ; Vaginal dryness N89.8 and Enthesopathy M77.9 [facility] [address] [place] [address] [phone] 08/01/2024 Codie Lema Fibromyalgia M79.7 ; Primary generalized (osteo)arthritis M15.0 ; Other extermination supervisor (current) drug therapy Z79.899 ; Vitamin D deficiency, unspecified E55.9 ; Right hand pain M79.641 ; Left hand pain M79.642 ; Left foot pain M79.672 ; Elevated C-reactive protein (CRP) R79.82 ; Sacroiliac joint pain M53.3 and Rash R21 [facility] [address] [place] [phone] 02/05/2024 Ruby Hamilton [facility] [address] [place] [address] [phone] 06/19/2024 Ruby Hamilton [facility] [address] [place] [address] [phone] 10/01/2024 Ruby Hamilton ASSESSMENTS Encounter Date Diagnosis Assessment Notes Treatment Notes Treatment Clinical Notes Section Notes 02/02/2024 Fibromyalgia (ICD-10 - M79.7) The patient was advised to continue the current regimen for the treatment and pain control of fibromyalgia and OA. C[facility] try the [facility] to help with her chronic pain. [...] to monitor any adverse effects of medications. 08/01/2024 Fibromyalgia (ICD-10 - M79.7) The patient [...] slightly elevated. Sed rate has been normal. 02/02/2024 Other chcf (current) drug therapy (ICD-10 - Z79.899) The patient was advised to continue the current regimen for the treatment and pain control of fibromyalgia and OA. CAn try the [facility] to help with her chronic pain. Labwork drawn to evaluate disease process and to monitor any adverse effects of medications. 08/01/2024 Other chcf (current) drug therapy (ICD-10 - Z79.899) The patient was advised to continue the current regimen for the treatment and pain control of fibromyalgia and OA. Labwork drawn to evaluate disease process and to monitor any adverse effects of medications. Her CRP is usually slightly elevated. Sed rate has been normal. 02/02/2024 Vitamin D deficiency, unspecified (ICD-10 - E55.9) The patient was advised to continue the current regimen for the treatment and pain control of fibromyalgia and OA. CAn try the [facility] to help with her chronic pain. Labwork drawn to evaluate disease process and to monitor any adverse effects of medications. 08/01/2024 Vitamin D deficiency, unspecified (ICD-10 - E55.9) The patient was advised to continue the current regimen for the treatment and pain control of fibromyalgia and OA. Labwork drawn to evaluate disease process and to monitor any adverse effects of medications. Her CRP is usually slightly elevated. Sed rate has been normal. 02/02/2024 Left foot pain (ICD-10 - M79.672) The patient was advised to continue the current regimen for the treatment and pain control of fibromyalgia and OA. CAn try the [facility] to help with her chronic pain. Labwork drawn to evaluate disease process and to monitor any adverse effects of medications. 08/01/2024 Right hand pain (ICD-10 - M79.641) The patient was advised to continue the current regimen for the treatment and pain control of fibromyalgia and OA. Labwork drawn to evaluate disease process and to monitor any adverse effects of medications. Her CRP is usually slightly elevated. Sed rate has been normal. 02/02/2024 Paresthesia (ICD-10 - R20.2) The patient was advised to continue the current regimen for the treatment and pain control of fibromyalgia and OA. CAn try the [facility] to help with her chronic pain. Labwork drawn to evaluate disease process and to monitor any adverse effects of medications. 08/01/2024 Left hand pain (ICD-10 - M79.642) The patient was advised to continue the current regimen for the treatment and pain control of fibromyalgia and OA. Labwork drawn to evaluate disease process and to monitor any adverse effects of medications. Her CRP is usually slightly elevated. Sed rate has been normal. 02/02/2024 Xerostomia (ICD-10 - K11.7) The patient was advised to continue the current regimen for the treatment and pain control of fibromyalgia and OA. C[facility] try the [facility] to help with her chronic pain. Labwork drawn to evaluate disease process and to monitor any adverse effects of medications. 08/01/2024 Left foot pain (ICD-10 - M79.672) The patient was advised to continue the current regimen for the treatment and pain control of fibromyalgia and OA. Labwork drawn to evaluate disease process and to monitor any adverse effects of medications. Her CRP is usually slightly elevated. Sed rate has been normal. 02/02/2024 Vaginal dryness (ICD-10 - N89.8) The patient was advised to continue the current regimen for the treatment and pain control of fibromyalgia and OA. CAn try the [facility] to help with her chronic pain. Labwork drawn to evaluate disease process and to monitor any adverse effects of medications. 08/01/2024 Elevated C-reactive protein (CRP) (ICD-10 - R79.82) The patient was advised to continue the current regimen for the treatment and pain control of fibromyalgia and OA. Labwork drawn to evaluate disease process and to monitor any adverse effects of medications. Her CRP is usually slightly elevated. Sed rate has been normal. 02/02/2024 Enthesopathy (ICD-10 - M77.9) The patient was advised to continue the current regimen for the treatment and pain control of fibromyalgia and OA. CAn try the [facility] to help with her chronic pain. Labwork drawn to evaluate disease process and to monitor any adverse effects of medications. 08/01/2024 Sacroiliac joint pain (ICD-10 - M53.3) [...] rate has been normal. PLAN OF TREATMENT Pending Test Test Name Order Date X ray : Knee, left 2 views 12/18/2013 X ray : Knee, right 2 views 12/18/2013 X ray : Hand, left 08/01/2015 X ray : Hand, left 12/18/2013 X ray : Hand, right 08/01/2015 X ray : Hand, right 12/18/2013 Sed Rate - Westergren 08/01/2015 Sed Rate - Westergren 05/02/2015 C-Reactive Protein, Quant 05/02/2015 C-Reactive Protein, Quant 08/01/2015 CCP IgG Antibodies 11/18/2009 CBC () 12/07/2012 VITAMIN D, 25-HYDROXY, LC/MS/MS 08/02/19 25 VITAMIN D, 25-HYDROXY, LC/MS/MS 08/01/19 16 Joint Injection - knee, left 08/03/2011 CP () 06/20/2013 CP () 12/07/2012 X ray : Knee, right 3 views 09/28/2017 X ray : Hand left- outside order 025 X ray : Hand left- outside order 020 X ray : Hand right- outside order 2019 X ray : Hand right- outside order 2024 Joint Injection - MCP, RIGHT 04/21/2016 Joint Injection - knee, right 09/28/2017 Joint Injection - knee, right 06/09/2018 Joint Injection - knee, right 04/21/2016 X ray : SI joints- outside order 025 X ray : Wrist, right- outside orders Inj-Toradol 09/01/2023 Inj-Toradol 05/30/2017 Inj-Toradol 05/02/2018 Inj-Toradol 10/14/2016 injection Toradol 60mg IM 10/30/2018 X ray : Shoulder, right- outside order 0 09/28/2017 X ray : Foot Left- outside order 021 X ray : Elbow, right- outside order 09/11 Lab slip given 08/01/2015 -Xray slip given 05/15/2020 -Xray slip given 08/01/2024 -Xray slip given 09/28/2017 DS DNA ANTIBODY, CRITHIDIA, IFA W/REFL Q UEST 02/08/2022 DS DNA ANTIBODY, CRITHIDIA, IFA W/REFL Q UEST 07/12/2022 Next Appt Details Provider Name:Codie Lema, 01/23/2025 11:10:00 AM, [address] [facility], [address], [place], [place], [phone], Insurance Providers Payer Name Payer Address Payer Phone Subscriber Number Group Number Insured Name Patient Relationship to Insured Coverage Start Date Coverage End Date [facility] H[facility] POS NO Referral RQD [address] [address] [place] [address] [id number] Cheyenne Wiggins Self - patient is the insured 5 MEDICARE [address] [address] [place] [address] [id number] Cheyenne Wiggins Self - patient is the insured 1 MEDICAL (GENERAL) HISTORY Medical History History ICD Code Migraines sinus problems dizziness swollen glands in neck varicose veins hemorrhoids irritable bowel syndrome Hot Flashes depression/anxiety Lichen's Sclerosis Surgical History Surgery Date(Month/Year) right knee lateral release 06/2023 right rotator cuff 04/2023 D&C 360 fusion L4-L5/SI 1999 endometriosis 2006 bowel/bladder dissection 2006 Sinus surgery 2000
--- OUTSIDE RECORDS SUMMARY | 2024-11-15 07:37 | XMS_ITS | Clinical Summary ---
Author Organization [facility] Address [address] [place] [id number] Care Team Providers Care Data Entry Analyst Name Role Phone Unavailable Primary Care Provider Unavailabl e Encounters Date Type Department Care Team Description 10/16/2024 External Device Data [facility] ABSTRACTION Provider, Abstract 09/26/2024 External Device Data [facility] ABSTRACTION Provider, Abstract 09/25/2024 External Device Data [facility] ABSTRACTION Provider, Abstract 09/04/2024 External Device Data [facility] ABSTRACTION Provider, Abstract 08/28/2024 External Device Data [facility] ABSTRACTION Provider, Abstract from Last 3 Months Social History Tobacco Use Types Packs/Day Years Used Date Smoking Tobacco: Never Assessed Comments Unknown Sex and Gender Information Value Date Recorded Sex Assigned at Not on file Legal Sex Female 11:01 AM CDT Gender Identity Not on file Sexual Orientation Not on file Plan of Treatment Health Maintenance Due Date Last Done Comments Pre-Diabetes and Diabetes Screening 1965 DTAP/TDAP/TD VACCINES (1 - Tdap) 11/12/1986 HEPATITIS B VACCINES (1 of 3 - 19+ 3-dose series) 03/1986 HPV/Cotest (21-29) 11/12/1988 CERVICAL CANCER SCREENING 11/12/1997 HPV/Cotest (30-65) 11/12/1997 PAP SMEAR 11/12/1997 BREAST CANCER SCREENING 2007 COLORECTAL SCREENING 11/12/2012 Colorectal Cancer Screening 11/12/2012 FIT-DNA Q 3 years 11/12/2012 FIT/FOBT Q 1 year 11/12/2012 Flex Sig/CT Colonography Q 5 years 11/12/2012 ZOSTER VACCINE (1 of 2) 11/12/2017 INFLUENZA VACCINE (#1) 2024 Insurance [facility] [id number] [place] [id number]
== END 2024-11-15 07:26 | disposition home or self-care (01) ==
LOC: CHSIMG 07:34
PROVIDERS: PCP Internal Medicine; Visit Provider Internal Medicine
DX: M79.89 Other specified soft tissue disorders (principal)
CPT/HCPCS: 93970

== ENCOUNTER 2024-11-17 16:32 | Emergency (ER) | payer MEDICARE, SELFPAY ==
--- OUTSIDE RECORDS SUMMARY | 2024-02-02 08:00 | XMS_ITS ---
Author Organization [facility] Address [address] [facility] [address] [facility] [address] [place], [place] [id number] Care Team Providers Care Sales Training Manager Name Role Phone LB INGRAM Primary Care Provider UnavailRuby Galvan Unavailable [phone] Codie Lema Unavailable [phone] ALLERGIES No Known Allergies RESULTS Component Value Reference Range Notes AST (SGOT) Reviewed date:02/03/2024 03:44:17 PM Interpretation: Performing Lab:[facility], [address] [place], [place] [address]ox [facility], Phone - [phone], Director - Caryn Notes/Report: AST (SGOT) 19 0-40 IU/L Creatinine, Serum Reviewed date:02/03/2024 03:44:17 PM Interpretation: Performing Lab:[facility], [address] [place], [place] [address]ox [facility], Phone - [phone], Director - Caryn Notes/Report: Creatinine 0.65 0.57-1.00 mg/dL eGFR 103 >59 mL/min/1.73 ALT (SGPT) Reviewed date:02/03/2024 03:44:17 PM Interpretation: Performing Lab:[facility] [employer] [facility] [address] [place], [place] [address]ox [facility], Phone - [phone], Director - Cayrn Notes/Report: ALT (SGPT) 19 0-32 IU/L CBC With Differential/Platel et Reviewed date:02/03/2024 03:44:17 PM Interpretation: Performing Lab:[facility], Isogen[facility] Romero [facility], Phone - [phone], Director - [facility] Notes/Report: WBC 8.9 3.4-10.8 x10E3/uL Effective February 13, 2024 profile [id number] WBC will be made non-orderable as a stand-alone order code. RBC 5.16 3.77-5.28 x10E6/uL Hemoglobin 13.6 11.1-15.9 g/dL Hematocrit 43.9 34.0-46.6 % MCV 85 79-97 fL MCH 26.4 26.6-33.0 pg MCHC 31.0 31.5-35.7 g/dL RDW 13.8 11.7-15.4 % Platelets 410 150-450 x10E3/uL Neutrophils 65 Not Estab. % Lymphs 27 Not Estab. % Monocytes 6 Not Estab. % Eos 1 Not Estab. % Basos 1 Not Estab. % Immature Cells Neutrophils (Absolute) 5.8 1.4-7.0 x10E3/uL Lymphs (Absolute) 2.4 0.7-3.1 x10E3/uL Monocytes(Absolute) 0.6 0.1-0.9 x10E3/uL Eos (Absolute) 0.1 0.0-0.4 x10E3/uL Baso (Absolute) 0.1 0.0-0.2 x10E3/uL Immature Granulocytes 0 Not Estab. % Immature Grans (Abs) 0.0 0.0-0.1 x10E3/uL NRBC Hematology Comments: Sed Rate - Westergren Reviewed date:02/03/2024 03:44:17 PM Interpretation: Performing Lab:[facility] [place], [address] [place] [address], Phone - [phone], Director - [facility] Notes/Report: Sedimentation Rate-Westergren 17 0-40 mm/hr C-Reactive Protein, Quant Reviewed date:02/03/2024 03:44:17 PM Interpretation: Performing Lab:[facility] [place], [address] [place] [address], Phone - [phone], Director - [facility] Notes/Report: C-Reactive Protein, Quant 13 0-10 mg/L VITAMIN D, 25-HYDROXY, LC/MS /MS Reviewed date:02/05/2024 07:47:50 PM Interpretation: Performing Lab:[facility] [place], [address] [place], [place] [address], Phone - [phone], Director - Caryn Notes/Report: Vitamin D, 25-Hydroxy 23.5 30.0-100.0 ng/mL Vitamin D deficiency has been defined by the [place] of [employer] and an Endocrine Society practice guideline as a level of serum 25-OH vitamin D less than 20 ng/mL (1,2). The Endocrine Society went on to further define vitamin D insufficiency as a level between 21 and 29 ng/mL (2). 1. IOM ([place] of Medicine). 2010. Dietary reference intakes for calcium and D. [place]: The National Academies Press. 2. Elder MF, Veronica BENDER, Nolberto BOSTON, et al. Evaluation, treatment, and prevention of vitamin D deficiency: an Endocrine Society clinical practice guideline. JCEM. 2010; 96(7):1911-30. REASON FOR VISIT f/u MEDICATIONS Medication SIG (Take, Route, Frequency, Duration) Notes Start Date End Date Status traMADol 50 mg 1 tab(s) orally 2 ti mes a day prn 08/05/2023 Active TiZANidine Hydrochloride 2 mg 1 tab(s) orally nightly as needed Active Maxalt 10 mg as directed orally prn Active meloxicam 15 mg 1 tab(s) orally once a day Active Tylenol Sinus Congestion and Pain Severe prn Active PROzac 40 mg 1 cap(s) orally once a day Active ergocalciferol 50,000 intl units 1 cap(s) orally once a week 02/06/2024 Active Vitamin B12 250 mcg 1 tab(s) orally once a day Active clobetasol topical 0.05% 1 luis applied t opically 2 times a day Active ergocalciferol 50,000 intl units 1 cap(s) orally once a week 09/01/2023 Active VITAL SIGNS BMI 40.03 kg/m2 02/02/2024 Blood pressure systolic 126 mm Hg 02/02/20 24 Blood pressure diastolic 70 mm Hg 024 Heart Rate 76 /min 02/02/2024 Height 70 in 02/02/2024 Weight 279 lbs 02/02/2024 Encounters Encounter Location Date Provider [facility] [address] [place], [place] [phone] 02/02/2024 Codie Lema Fibromyalgia M79.7 ; Primary generalized (osteo)arthritis M15.0 ; 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 CAn try the [facility] to help with her chronic pain. Labwork drawn to evaluate disease process and to monitor any adverse effects of medications. 02/02/2024 Primary generalized (osteo)arthritis (ICD-10 - M15.0) The patient was advised to continue the current regimen for the treatment and pain control of fibromyalgia and OA. CAn try the [facility] to help with her chronic pain. Labwork drawn to evaluate disease process and to monitor any adverse effects of medications. 02/02/2024 Other mcfp (current) drug therapy (ICD-10 - Z79.899) The patient was advised to continue the current regimen for the treatment and pain control of fibromyalgia and OA. CAn try the [facility] to help with her chronic pain. Labwork drawn to evaluate disease process and to monitor any adverse effects of medications. 02/02/2024 Vitamin D deficiency, unspecified (ICD-10 - E55.9) The patient was advised to continue the current regimen for the treatment and pain control of fibromyalgia and OA. CAn try the [facility] to help with her chronic pain. Labwork drawn to evaluate disease process and to monitor any adverse effects of medications. 02/02/2024 Left foot pain (ICD-10 - M79.672) The patient was advised to continue the current regimen for the treatment and pain control of fibromyalgia and OA. CAn try the [facility] to help with her chronic pain. Labwork drawn to evaluate disease process and to monitor any adverse effects of medications. 02/02/2024 Paresthesia (ICD-10 - R20.2) The patient was advised to continue the current regimen for the treatment and pain control of fibromyalgia and OA. CAn try the [facility] to help with her chronic pain. Labwork drawn to evaluate disease process and to monitor any adverse effects of medications. 02/02/2024 Xerostomia (ICD-10 - K11.7) The patient was advised to continue the current regimen for the treatment and pain control of fibromyalgia and OA. CAn try the [facility] to help with her chronic pain. Labwork drawn to evaluate disease process and to monitor any adverse effects of medications. 02/02/2024 Vaginal dryness (ICD-10 - N89.8) The patient was advised to continue the current regimen for the treatment and pain control of fibromyalgia and OA. CAn try the [facility] to help with her chronic pain. Labwork drawn to evaluate disease process and to monitor any adverse effects of medications. 02/02/2024 Enthesopathy (ICD-10 - M77.9) The patient was advised to continue the current regimen for the treatment and pain control of fibromyalgia and OA. CAn try the [facility] to help with her chronic pain. Labwork drawn to evaluate disease process and to monitor any adverse effects of medications. PLAN OF TREATMENT Medication Medication Name Sig Start Date Stop Date Notes traMADol 50 mg 1 tab(s) orally 2 ti mes a day prn 08/05/2023 TiZANidine Hydrochloride 2 mg 1 tab(s) o rally nightly as needed Maxalt 10 mg as directed orally prn meloxicam 15 mg 1 tab(s) orally once a day Tylenol Sinus Congestion and Pain Severe prn PROzac 40 mg 1 cap(s) orally once a day ergocalciferol 50,000 intl units 1 cap(s ) orally once a week 02/06/2024 Vitamin B12 250 mcg 1 tab(s) orally once a day ergocalciferol 50,000 intl units 1 cap(s ) orally once a week 09/01/2023 Next Appt Details Follow Up: 6 Months Codie muniz, Reason: Provider Name:Codie Lema, 01/23/2025 11:10:00 AM, [address], [address], [place], [place], [id number], Progress Notes * Examination Category Sub-Category Detail Notes Category Not es Rheumatology Cervical Spine normal range of motion Lumbar spine: Diffuse tenderness Thoracic Spine: normal Sacroiliac: right tenderness Fibromyalgia Tender Points: presen t General Constitutional: NAD HEENT: PERRLA Cardiovascular RSR, no murmurs, No rub Lungs: clear to ausculation Abdomen: soft, no organomegal y or masses . /Rectal: not done Skin: no rash Neurological: no focal signs, norm al strength Heme/Lymphatic: no cervical adenopat hy Psych: alert, oriented x 3 Joint Exam Shoulders right, NROM with 1+ pain Elbows Normal, Wrists No swelling. No tend erness. NROM. Hips Normal Knees bilateral Crepitus w ith motion, right, 1+ swelling, 1+ tenderness Ankles Normal Tarsus left, lateral 1+ ten derness All IPs Normal All MCPs right 3rd fullness All PIPs Normal All DIPs Normal All MTPs Normal History and Physical Notes * HPI (History of Present Illness) Category Sub-Category Detail Notes Category Not es Fibromyalgia Syndrome Headaches She is still having right shoulder and right knee pain. She is better than her last appt. She recently had plantar fasciitis and she got injections last week. It still helps. It was very helpful. She is back to feeling about the same- deals with daily pain. She has been taking tizanidine and tramadol more on a daily basis. . Fatigue Chronic widespread pain Unrefreshed sleep medication problems GI upset joint pain Physical Examination Category Sub-Category Detail Notes Section Note s MDHAQ Summary Function (0-10):: 4 Pain (0-10):: 4.5 Patient Global Assessment of Disease Activity (0 -10):: 5 RAPID3 Score (0-30):: 13.5 Physician Global Assessment of Disease Activity (0-10):: 4 Prognosis Very Good w/tx Erosive Damage No
--- OUTSIDE RECORDS SUMMARY | 2024-02-05 14:45 | XMS_ITS ---
Author Organization [facility] Address [address] [place], [place] [phone] Care Team Providers Care Servicenow Administrator Developer Name Role Phone LB INGRAM Primary Care Provider Ruby Kebede [phone] MEDICATIONS Medication SIG (Take, Route, Frequency, Duration) Notes Start Date End Date Status ergocalciferol 50,000 intl units 1 cap(s) orally once a week for 84 days 02/06/2024 Active Encounters Encounter Location Date Provider Diagnosis [facility] [address] [place], [place] [phone] 02/05/2024 Ruby Hamilton PLAN OF TREATMENT Medication Medication Name Sig Start Date Stop Date Notes ergocalciferol 50,000 intl units 1 cap(s ) orally once a week for 84 days 02/06/2024 Next Appt Details Provider Name:Codie Lema, 01/23/2025 11:10:00 AM, [address], [place], [place], [phone],
--- OUTSIDE RECORDS SUMMARY | 2024-06-19 04:26 | XMS_ITS ---
Author Organization [facility] Address [address] [place], [place] [phone] Care Team Providers Care On Car Supervisor Name Role Phone NATALY, LB Primary Care Provider Ruby Kebede Unavailable [phone] REASON FOR VISIT elev inflam makers Encounters Encounter Location Date Provider Diagnosis [facility] [address], [address] [place], [place] [phone] 06/19/2024 Ruby Hamilton PLAN OF TREATMENT Next Appt Details Provider Name:Codie Lema, 01/23/2025 11:10:00 AM, [address], [address], [place], [place], [phone],
--- OUTSIDE RECORDS SUMMARY | 2024-08-01 05:50 | XMS_ITS ---
Author Organization [facility] Address [address] [facility] Chu Hernández [facility] [address] [place], [place] [id number] Care Team Providers Care Bridge Repairer Name Role Phone LB INGRAM Primary Care Provider UnavailRuby Galvan Unavailable [phone] RayumikoCodie Unavailable [phone] ALLERGIES No Known Allergies RESULTS Component Value Reference Range Notes AST (SGOT) Reviewed date:08/02/2024 12:38:24 PM Interpretation: Performing Lab:[employer], [address] [place], [place] [address] [facility], Phone - [phone], Director - Caryn Notes/Report: AST (SGOT) 11 0-40 IU/L Creatinine, Serum Reviewed date:08/02/2024 12:38:24 PM Interpretation: Performing Lab:[employer] [address] [place], [place] [address] [facility], Phone - [phone], Director - Caryn Notes/Report: Creatinine 0.61 0.57-1.00 mg/dL eGFR 105 >59 mL/min/1.73 ALT (SGPT) Reviewed date:08/02/2024 12:38:24 PM Interpretation: Performing Lab:[employer] [facility], Phone - [phone], Director - Caryn Notes/Report: ALT (SGPT) 10 0-32 IU/L CBC With Differential/Platel et Reviewed date:08/02/2024 12:38:24 PM Interpretation: Performing Lab:[facility], [employer] [facility], Phone - [phone], Director - Caryn Notes/Report: WBC 7.2 3.4-10.8 [...] Westergren Reviewed date:08/02/2024 12:38:24 PM Interpretation: Performing Lab:[facility] [address], Phone - [phone], [facility]/Report: Sedimentation Rate-Albertergren 28 0-40 mm/hr Rheumatoid Arthritis Factor Reviewed date:08/02/2024 12:38:24 PM Interpretation: Performing Lab:[facility] [place], [address] [place] [address], Phone - [phone], [facility] Notes/Report: Rheumatoid Factor (RF) <10.0 <14.0 IU/mL C-Reactive Protein, Quant Reviewed date:08/02/2024 12:38:24 PM Interpretation: Performing Lab:[facility] [place], [address] [place] [address], Phone - [phone], [facility] Notes/Report: C-Reactive Protein, Quant 9 0-10 mg/L CCP IgG Antibodies Reviewed date:08/02/2024 12:38:24 PM Interpretation: Performing Lab:[facility], [address] [facility], [place], Phone - [phone], Director - Caryn Notes/Report: Anti-CCP Ab, IgG/IgA [...] Location Date Provider Diagnosis [facility] [address] [place] [address], [address] [place], [place] [phone] 08/01/2024 Codie Lema Fibromyalgia M79.7 ; Primary generalized (osteo)arthritis M15.0 ; Other computer terminal operator (current) drug therapy Z79.899 ; Vitamin [...] Sed rate has been normal. 08/01/2024 Other care home (current) drug therapy (ICD-10 - Z79.899) The [...] Name:Codie Lema, 01/23/2025 11:10:00 AM, [address] [facility], [address], [place], [place], [phone], Progress Notes * Examination Category Sub-Category Detail [...]
--- OUTSIDE RECORDS SUMMARY | 2024-10-01 09:19 | XMS_ITS ---
Author Organization [facility] Address [address] [place], [place] [id number] Care Team Providers Care Supervisor Home Economics Name Role Phone LB INGRAM Primary Care Provider Ruby Kebede Unavailable [phone] Encounters Encounter Location Date Provider Diagnosis [facility] [address], [address] [place], [place] [phone] 10/01/2024 Ruby Hamilton PLAN OF TREATMENT Next Appt Details Provider Name:Codiemarnie Lema, 01/23/2025 11:10:00 AM, [address], [address], [place], [place], [phone],
--- NOTE | ~2024-11-17 | XR_ITS ---
EXAMINATION: XR forearm RT 2V DATE: 11/17/2024 17:24 INDICATION: Mid right forearm pain post fall TECHNIQUE: AP an lateral views of the right forearm were obtained. COMPARISON: 01/07/2022 FINDINGS: Bone alignment is normal. No fracture. Joint spaces are normal at the right elbow and wrist and visualized hand. No elbow joint effusion. Soft tissues are unremarkable. IMPRESSION: 1. Negative right forearm radiographs. Reviewed, dictated and finalized at location A.
[2024-11-17 16:32] VITALS: BP 140/79; PULSE 82; RESP 16; TEMP 36.4; O2SAT 96
--- OUTSIDE RECORDS SUMMARY | 2024-11-17 16:36 | XMS_ITS | Clinical Summary ---
Author Organization [facility] Address [facility]ly [facility] [place] [address] Care Team Providers Care Instrumentation Engineering Technician Name Role Phone Sukhdev Dean MD Primary Care Provider [phone] Allergies No known active allergies Medications meloxicam 15 MG tablet Take 1 tablet (15 mg total) by mouth daily. 9 Active fluoxetine 40 MG capsule Take 1 capsule (40 mg total) by mouth daily. 9 Active traMADol 50 MG tablet Take 1 tablet (50 mg total) by mouth every 6 (six) hours as needed. PRN 2 9 Active vitamin B-12 (CYANOCOBALAMIN ) 250 MCG Tab Take 1 tablet (250 mcg total) by mouth daily. Active tiZANidine (ZANAFLEX) 2 MG tablet Take 1 tablet (2 mg total) by mouth nightly. Active rizatriptan (MAXALT) 10 MG tablet Take 1 tablet (10 mg total) by mouth as needed for Migraine. May repeat in 2 hours if needed Active vitamin D2, ergocalciferol, (DRISDOL) 1.25 mg capsule Take 1 capsule (1.25 mg total) by mouth every 7 days. Active Diclofenac Sodium (PENNSAID) 2 % Solution every 12 (twelve) hours as needed. Active clobetasol (TEMOVATE) 0.05 % cream Apply topically 2 (two) times daily as needed. Active Active Problems Problem Noted Date Diagnosed Date Chondromalacia patellae of right knee 09/05/2023 History of arthroscopy of right knee 09/05/2023 History of repair of right rotator cuff 05/22/20 24 Osteoarthritis of right acromioclavicular joint 03/29/2023 Pes anserine bursitis 03/15/2023 Primary osteoarthritis of right knee 10/20/2018 Resolved Problems Problem Noted Date Diagnosed Date Resolved Date SLAP lesion, type II, nontra umatic, right, sequela 03/29/2023 08/03/2023 Nontraumatic incomplete tear of right rotator cuff 03/29/2023 08/03/2023 Social History Tobacco Use Types Packs/Day Years Used Date Smoking Tobacco: Never Smokeless Tobacco: Never Tobacco Cessation:Counseling Given: Not Answered Alcohol Use Standard Drinks/Week Comments Yes 0 (1 standard drink = 0.6 oz pur e alcohol) social AUDIT-C Answer Date Recorded Frequency of Alcohol Consumption Never 10/17/2018 Average Number of Drinks Not on file 019 Frequency of Binge Drinking Not on file 08/2018 Comments No Sex and Gender Information Value Date Recorded Sex Assigned at Not on file Legal Sex Female 5:46 PM DIRECTOR OF LABORATORY OPERATIONS Gender Identity Not on file Sexual Orientation Not on file Last Filed Vital Signs Vital Sign Reading Time Taken Comments Blood Pressure 121/56 06/22/2023 11:38 AM CDT Pulse 72 06/22/2023 11:38 AM CDT Temperature 36.8 C (98.2 F) 06/22/2023 11:09 AM CDT Respiratory Rate 17 06/22/2023 11:38 AM CDT Oxygen Saturation 96% 06/22/2023 11:38 AM CDT Inhaled Oxygen Concentration - - Weight 122.5 kg (270 lb) 10/04/2023 9:47 AM CDT Height 175.3 cm (5' 9) 10/04/2023 9:47 AM CDT Body Mass Index 39.87 10/04/2023 9:47 AM CDT Plan of Treatment Health Maintenance Due Date Last Done Comments Cervical Cancer Screening Pa p Smear (Age 30 to 64) Every 3 Years 1967 Colorectal Cancer Screening Colonoscopy (10 Years) 1967 Annual Physical 11/12/1970 Hepatitis C 11/12/1985 Hepatitis B Vaccines (1 of 3 - 19+ 3-dose series) 11/12/1986 Cervical Cancer Screening Pa p with HPV Testing (Age 30 to 64) Every 5 Years 11/12/1997 Cervical Cancer Screening wi th HPV 11/12/1997 Mammogram Screening 2007 Pneumococcal Vaccine: 50+ Years (1 of 1 - PCV) 11/12/2017 Zoster Vaccines (1 of 2) 11/12/2017 COVID-19 Vaccine (3 - 2024-2 6 season) 2024 11/19/2020, 10/29/2020 DTaP, Tdap and Td Vaccines ( 2 - Td or Tdap) 01/08/2032 01/07/2022 Meningococcal B Vaccine Aged Out No l onger eligible based on patient's age to complete this topic Meningococcal Vaccine Aged Out No chinmay amada eligible based on patient's age to complete this topic RSV Immunizations Under 20 Months Aged Out No longer eligible b ased on patient's age to complete this topic Medical Devices Implanted Type Area Resourcing Advisor Device Identifier Shelf Expiration Date Model / Serial / Lot Suture Logan, Swivelock [employer]odesis, Biocomposite 7x19.1mm - [id number] Implanted:Qty: 1 on 05/05/2023 by Ken Manzanares MD at [facility] Logan Right: Shoulder [employer] [id number] 12/11/2026 [id number]-[id number] C-7 / / [id number] Logan Suture Bio-Swivelock C Ar[employer]rex White/Black 4.75 X 19.1mm - [id number] Implanted:Qty: 1 on 05/05/2023 by Ken Manzanares MD at [facility] Logan Right: Shoulder [employer] [id number] 12/11/2026 [id number]-2324BC CTT / / [id number] Logan Suture Bio-Swivelock C [employer] - [id number] Implanted:Qty: 1 on 05/05/2023 by Ken Manzanares MD at [facility] Logan Right: Shoulder [employer] [id number] 12/11/[address] / / [id number] Logan Suture Swivelock Self Punch 24.5mm Biocomposite - [id number] Implanted:Qty: 1 on 05/05/2023 by Ken Manzanares MD at [facility] Logan Right: Shoulder [employer] [id number] 05/11/2026 AR-2324BC M / / [id number] Logan Suture Swivelock Self Punch 24.5mm Biocomposite - [id number] Implanted:Qty: 1 on 05/05/2023 by Ken Manzanares MD at [facility] Logan Right: Shoulder [employer] [id number] 05/11/2026 AR-2324BC M / / [id number] Insurance MEDICARE Care Teams Instrumentation Engineering Technician Relationship Specialty Start Date End Date Sukhdev Dean MD [address] [place] [address] PCP - General INTERNAL MEDICINE 10/16/18
--- OUTSIDE RECORDS SUMMARY | 2024-11-17 16:37 | XMS_ITS | Patient Health Record ---
Author Organization [facility] Address [address] [facility] Chu Hernández [facility] [address] [place], [place] [address] Care Team Providers Care Head Rose Grower Name Role Phone LB INGRAM Primary Care Provider Ruby Kebede Unavailable [phone] Codie Lema Unavailable [phone] ALLERGIES No Known Allergies RESULTS Component Value Reference Range Notes AST (SGOT) Reviewed date:02/03/2024 03:44:17 PM Interpretation: Performing Lab:[facility], [address] [place] [address], Phone - [phone], Director - Caryn Notes/Report: AST (SGOT) 19 0-40 IU/L Creatinine, Serum Reviewed date:02/03/2024 03:44:17 PM Interpretation: Performing Lab:[facility], [address] [place] [address], Phone - [phone], Director - Caryn Notes/Report: Creatinine 0.65 0.57-1.00 mg/dL eGFR 103 >59 mL/min/1.73 ALT (SGPT) Reviewed date:02/03/2024 03:44:17 PM Interpretation: Performing Lab:[facility] [address] [place] [address], Phone - [phone], Director - Caryn Notes/Report: ALT (SGPT) 19 0-32 IU/L CBC With Differential/Platel et Reviewed date:02/03/2024 03:44:17 PM Interpretation: Performing Lab:[facility], [address] [place] [address], Phone - [phone], Director - Caryn Notes/Report: WBC 8.9 3.4-10.8 x10E3/uL Effective February 13, 2024 profile [id number] WBC will be made non-orderable as a [...] Westergren Reviewed date:02/03/2024 03:44:17 PM Interpretation: Performing Lab:[facility] [address], Phone - [phone], [facility] Notes/Report: Sedimentation Rate-Westergren 17 0-40 mm/hr C-Reactive Protein, Quant Reviewed date:02/03/2024 03:44:17 PM Interpretation: Performing Lab:[facility] [address], Phone - [phone], Director - [facility] Notes/Report: C-Reactive Protein, Quant 13 0-10 mg/L VITAMIN D, 25-HYDROXY, LC/MS /MS Reviewed date:02/05/2024 07:47:50 PM Interpretation: Performing Lab:[facility] [address], Phone - [phone], Director - [facility] Notes/Report: Vitamin D, 25-Hydroxy 23.5 30.0-100.0 ng/mL Vitamin D deficiency has been defined by the Williams of Medicine and an Endocrine Society practice guideline as a level of serum 25-OH vitamin D less than 20 ng/mL (1,2). The Endocrine Society went on to further define vitamin D insufficiency as a level between 21 and 29 ng/mL (2). 1. IOM (Williams of Medicine). 2010. Dietary reference intakes for calcium and D. [place]o [place]: The National Genwords Press. 2. Elder MF, Veronica NC, Nolberto BOSTNO, et al. Evaluation, treatment, and prevention of vitamin D deficiency: an Endocrine Society clinical practice guideline. JCEM. 2010; 96(7):1911-30. AST (SGOT) Reviewed date:08/02/2024 12:38:24 PM Interpretation: Performing Lab:[facility], Phone - [phone], Director - [facility] Notes/Report: AST (SGOT) 11 0-40 IU/L Creatinine, Serum Reviewed date:08/02/2024 12:38:24 PM Interpretation: Performing Lab:[facility], Phone - [phone], Director - [facility] Notes/Report: Creatinine 0.61 0.57-1.00 mg/dL eGFR 105 >59 mL/min/1.73 ALT (SGPT) Reviewed date:08/02/2024 12:38:24 PM Interpretation: Performing Lab:[facility], Phone - [phone], Director - [facility] Notes/Report: ALT (SGPT) 10 0-32 IU/L CBC With Differential/Platel et Reviewed date:08/02/2024 12:38:24 PM Interpretation: Performing Lab:[facility], Phone - [phone], Director - [facility] Notes/Report: WBC 7.2 3.4-10.8 x10E3/uL RBC 4.74 [...] Westergren Reviewed date:08/02/2024 12:38:24 PM Interpretation: Performing Lab:[facility] [address], Phone - [phone], Director - [facility] Notes/Report: Sedimentation Rate-Westergren 28 0-40 mm/hr Rheumatoid Arthritis Factor Reviewed date:08/02/2024 12:38:24 PM Interpretation: Performing Lab:[facility] [address], Phone - [phone], Director - [facility] Notes/Report: Rheumatoid Factor (RF) <10.0 <14.0 IU/mL C-Reactive Protein, Quant Reviewed date:08/02/2024 12:38:24 PM Interpretation: Performing Lab:[facility] [address], Phone - [phone], Director - [facility] Notes/Report: C-Reactive Protein, Quant 9 0-10 mg/L CCP IgG Antibodies Reviewed date:08/02/2024 12:38:24 PM Interpretation: Performing Lab:[facility] [address], Phone - [phone], Director - Caryn Notes/Report: Anti-CCP Ab, IgG/IgA [...] Elevated C-reactive protein (CRP) (R79.82) Active confirmed 819450501 Problem Vitamin D deficiency, unspecified (E55.9) Active confirmed 73208596 Problem Other ocean transportation intermediary (current) drug therapy (Z79.899) Active confirmed 997984902 Problem Fibromyalgia (M79.7) Active confirmed 46057999 Problem Polyarthritis (M13.0) Active confirmed Polyarthritis (899688345) Problem Acute pain of right knee (M25.561) Active confirmed 01532131 Problem Primary generalized (osteo)arthritis (M15.0) Active confirmed 816426243 Problem Non-smoker (Z78.9) Active confirmed 3344256 Problem Paresthesia (R20.2) Active confirmed Paresthesia (23774469) Problem Sacroiliac joint pain (M53.3) Active confirmed 565995980 VITAL SIGNS Heart Rate 80 /min 08/01/2024 Blood pressure diastolic 61 mm Hg 08/01/2024 Height 70 in 08/01/2024 Blood pressure systolic 142 mm Hg 08/01/2024 Weight 298 lbs 08/01/2024 BMI 42.75 kg/m2 08/01/2024 Encounters Encounter Location Date Provider Diagnosis [facility] [address], [address] [place], [place] [id number] 01/26/2024 [facility]ie Lem[facility] [address] [place] [id number] 02/02/2024 Codie Lema Fibromyalgia M79.7 ; Primary generalized (osteo)arthritis M15.0 ; Other fdc (current) drug therapy Z79.899 ; Vitamin D deficiency, unspecified E55.9 ; Left foot pain M79.672 ; Paresthesia R20.2 ; Xerostomia K11.7 ; Vaginal dryness N89.8 and Enthesopathy M77.9 [facility] [address] [place] [id number] 08/01/2024 Codie Lema Fibromyalgia M79.7 ; Primary generalized (osteo)arthritis M15.0 ; Other ocean transportation intermediary (current) drug therapy Z79.899 ; Vitamin D deficiency, unspecified E55.9 ; Right hand pain M79.641 ; Left hand pain M79.642 ; Left foot pain M79.672 ; Elevated C-reactive protein (CRP) R79.82 ; Sacroiliac joint pain M53.3 and Rash R21 [facility] [address] [place] [id number] 02/05/2024 Ruby Hamilton [facility] [address] [place] [id number] 06/19/2024 Ruby Hamilton [facility] [address] [place] [address] [id number] 10/01/2024 Ruby Hamilton ASSESSMENTS Encounter Date Diagnosis Assessment Notes Treatment Notes Treatment Clinical Notes Section Notes 02/02/2024 Fibromyalgia (ICD-10 - M79.7) The patient was advised to continue the current regimen for the treatment and pain control of fibromyalgia and OA. CAn try the [facility] to help with her chronic pain. [...] Sed rate has been normal. 02/02/2024 Other fdc (current) drug therapy (ICD-10 - Z79.899) The patient was advised to continue the current regimen for the treatment and pain control of fibromyalgia and OA. CAn try the [facility] to help with her chronic pain. Labwork drawn to evaluate disease process and to monitor any adverse effects of medications. 08/01/2024 Other fdc (current) drug therapy (ICD-10 [...] of fibromyalgia and OA. CAn try the [facility] to help with her chronic pain. [...] of fibromyalgia and OA. CAn try the [facility] to help with her chronic [...] of fibromyalgia and OA. CAn try the [facility] to help with her chronic pain. [...] Hand, right 12/18/2013 Sed Rate - Westergren 05/02/2015 Sed Rate - Westergren 08/01/2015 C-Reactive Protein, Quant 05/02/2015 C-Reactive Protein, Quant [...] Lab slip given 08/01/2015 -Xray slip given 09/28/2017 -Xray slip given 08/01/2024 -Xray slip given 05/15/2020 DS DNA ANTIBODY, CRITHIDIA, IFA W/REFL Q UEST 02/08/2022 DS DNA ANTIBODY, CRITHIDIA, IFA W/REFL Q UEST 07/12/2022 Next Appt Details Provider Name:Codie Lema, 01/23/2025 11:10:00 AM, [address] [facility], [address], [place], [place], [id number], Insurance Providers Payer Name Payer Address Payer Phone Subscriber Number Group Number Insured Name Patient Relationship to Insured Coverage Start Date Coverage End Date [employer] [facility] HMO POS NO Referral RQD [address] [address] [place] [address] [phone] [id number] Cheyenne Wiggins Self - patient is the insured 5 MEDICARE [address] [address] [place] [address] [id number] Cheyenne Wiggins Self - patient is the [...]
--- OUTSIDE RECORDS SUMMARY | 2024-11-17 16:37 | XMS_ITS | Patient Health Record ---
Author Organization [facility] Address [address] [place] [address] Care Team Providers Care Tafe Teacher Name Role Phone Jermaine LAURENT [facility] Primary Care Provider Aura Starkey Unavailable [phone] Eliana Villegas Unavailable [phone] Allergies No Known Allergies Reason For Referral [...] Vaccine Route Administration Date Status Comme nts Tdap Unknown 01/07/2022 Administered Pfizer Biontech Covid-19 Vac cine 2nd dose Unknown 10/29/2020 Administered Pfizer Biontech Covid-19 Vac cine 2nd dose Unknown 11/19/2020 Administered Influenza virus vaccine, quadrivalent (IIV4), split virus, 0.25 mL dosage Unknown 01/07/2022 Administered Social History Tobacco Use: [...] YesDo you have a medical power of research attorney?: NoPublic Health and TravelHave you been to [...] YesDo you have a medical power of research attorney?: NoPublic Health and TravelHave you been to [...] YesDo you have a medical power of research attorney?: NoPublic Health and TravelHave you been to [...] YesDo you have a medical power of research attorney?: NoPublic Health and TravelHave you been to [...] YesDo you have a medical power of research attorney?: NoPublic Health and TravelHave you been to [...] YesDo you have a medical power of research attorney?: NoPublic Health and TravelHave you been to [...] YesDo you have a medical power of research attorney?: NoPublic Health and TravelHave you been to [...] Risk Notes Problem Mild recurrent major depression (88572636) Major depressive disorder, recurrent, mild (F33.0) 05/19/19 24 Active confirmed Problem Generalized anxiety disorder (76552964) Generalized anxiety disorder (F41.1) 07/21/19 24 Active confirmed Problem Screening for cardiovascular system disease (825282702) Encounter for screening for cardiovascular disorders (Z13.6) Active confirmed Problem Inadequate social support (982645819) Other specified problems related to primary support group (Z63.8) 02/18/20 23 Active confirmed Problem Depression Screening (812856789) Encounter for screening for depression (Z13.31) Active confirmed Problem Weight gain (153584354) Weight gain (R63.5) Active confirmed Problem Menopause (299955665) Menopause (Z78.0) Active confirmed Vital Signs Heart Rate 68 /min 09/25/2024 Respiratory Rate 16 /min 09/25/2024 Height-cm 177.80 cm 09/25/2024 Blood pressure diastolic 72 mm Hg 09/25/2024 Weight-kg 133.81 kg 09/25/2024 Height 70.00 in 09/25/2024 Blood pressure systolic 125 mm Hg 09/25/2024 Weight 295 lbs 09/25/2024 BMI 42.32 kg/m2 09/25/2024 Encounters Encounter Location Date Provider Diagnosis [facility] [address] [facility] [address] [place] [address] 11/23/2023 Aura Pearce Major depressive disorder, recurrent, mild F33.0 and Generalized anxiety disorder F41.1 [facility] [address] [facility] [address] [place] [address] 12/20/2023 Aura Pearce Major depressive disorder, recurrent, mild F33.0 and Generalized anxiety disorder F41.1 [facility], [place] [address] [facility] [address] [place] [address] 12/20/2023 Eliana Thermallory Major depressive disorder, recurrent, mild F33.0 ; Generalized anxiety disorder F41.1 and Other specified problems related to primary support group Z63.8 [facility], [place] [address] [facility] [address] [place] [address] 02/22/2024 Aura Pearce Major depressive disorder, recurrent, mild F33.0 and Generalized anxiety disorder F41.1 [place] [address] [facility] [address] [place] [address] 06/19/2024 Eliana Thermallory Encounter for screen ing for depression Z13.31 ; Major depressive disorder, recurrent, mild F33.0 ; Generalized anxiety disorder F41.1 ; Other specified problems related to primary support group Z63.8 and Encounter for screening for cardiovascular disorders Z13.[address] [address] 06/19/2024 Aura Pearce Encounter for screen ing for depression Z13.31 ; Major depressive disorder, recurrent, mild F33.0 and Generalized anxiety disorder F41.[address] [address] 07/23/2024 Aura Pearce Encounter for screen ing for depression Z13.31 ; Major depressive disorder, recurrent, mild F33.0 and Generalized anxiety disorder F41.[address] [address] 09/25/2024 Eliana Thermallory Encounter for screen ing for depression Z13.31 ; Major depressive disorder, recurrent, mild F33.0 ; Generalized anxiety disorder F41.1 ; Other specified problems related to primary support group Z63.8 ; Encounter for screening for cardiovascular disorders Z13.6 ; Weight gain R63.5 and Menopause Z78.[address] [address] 09/25/2024 Aura Pearce Major depressive disorder, recurrent, mild F33.0 ; Generalized anxiety disorder F41.1 and Encounter for screening for depression Z13.[address] [facility] [address] [place] [address] 10/23/2024 Aura Pearce Generalized anxiety disorder F41.1 [...] education on serotonin syndrome [facility]. Generalized anxiety disorder - Prozac 40 mg daily stable Discussion Notes continue therapy Patient educated on all medications including potential benefits, side effects, risks. Educated on proper dosing schedule and importance of compliance http_s://www.nam i.org/About-Ment al-Illness/Menta x-Rcjquv-Pwunrur ons http_s://psychFreeWheel/deprsekou juventino/the-cogniti aj-kzmulvcb-mh-d epression#treatm ents http__s://www.ni .nih.gov/healt h/topics/mental- health-medicatio ns [...] and importance of compliance http_s://www.nam i.org/About-Ment al-Illness/Menta x-Qzkgpc-Hkxebzm ons http_s://[employer]/deprsekou juventino/the-cogniti sm-nrytrkah-we-d epression#treatm ents http__s://www.ni .nih.gov/healt h/topics/mental- health-medicatio ns [...] Consider referral to a registered dietitian or editor managing newspaper. The USDA approximate food plate volumes (http_s://www.Optimitive plate.gov) are: Vegetables and fruits should comprise [...] and importance of compliance http_s://www.nam i.org/About-Ment al-Illness/Menta j-Ywfhnb-Uclkdgo ons http_s://psychce ntral.com/deprsekou juventino/the-cogniti vc-tulgngta-lz-d epression#treatm ents http__s://www.ni mh.nih.gov/healt h/topics/mental- health-medicatio ns [...] Consider referral to a registered dietitian or editor managing newspaper. The USDA approximate food plate volumes (http_s://www.Optimitive plate.gov) are: Vegetables and fruits should comprise [...] and importance of compliance http_s://www.nam i.org/About-Ment al-Illness/Menta e-Gisfcb-Kxtqloj ons http_s://psychce [employer]/deprsekou juventino/the-cogniti ff-ukwfbvsk-lj-d epression#treatm ents http__s://www.ni .nih.gov/healt h/topics/mental- health-medicatio ns [...] Consider referral to a registered dietitian or editor managing newspaper. The USDA approximate food plate volumes (http_s://www.Optimitive plate.gov) are: Vegetables and fruits should comprise [...] and importance of compliance http_s://www.nam i.org/About-Ment al-Illness/Menta y-Jfmnnj-Hpmggsa ons http_s://[employer]/roxana juventino/the-cogniti wn-wvkpiyzc-sz-d epression#treatm ents http__s://www.ni .nih.gov/healt h/topics/mental- health-medicatio ns [...] and importance of compliance http_s://www.nam i.org/About-Ment al-Illness/Menta j-Nmbwxm-Wbjuxya ons http_s://psychce MusicAll.com/depres juventino/the-cogniti tu-fdcanhei-qr-d epression#treatm ents http__s://www.ni .nih.gov/healt h/topics/mental- health-medicatio ns [...] and importance of compliance http_s://www.nam i.org/About-Ment al-Illness/Menta u-Ewljaj-Cvzautb ons http_s://psychBaofeng.com/depres juventino/the-cogniti qt-vtctvfaj-wk-d epression#treatm ents http__s://www.ni .nih.gov/healt h/topics/mental- health-medicatio ns [...] and importance of compliance http_s://www.nam i.org/About-Ment al-Illness/Menta r-Zfjtly-Lszhrgh ons http_s://Netasq.com/depres juventino/the-cogniti cu-pnhmqper-uv-d epression#treatm ents http__s://www.ni .nih.gov/healt h/topics/mental- health-medicatio ns [...] and importance of compliance http_s://www.nam i.org/About-Ment al-Illness/Menta m-Zkmfsd-Bxrtazc ons http_s://psychce MusicAll.com/deprsekou juventino/the-cogniti ny-piphdhcs-jr-d epression#treatm ents http__s://www.ni .nih.gov/healt h/topics/mental- health-medicatio ns [...] Consider referral to a registered dietitian or editor managing newspaper. The USDA approximate food plate volumes (http_s://www.Optimitive plate.gov) are: Vegetables and fruits should comprise [...] and importance of compliance http_s://www.nam i.org/About-Ment al-Illness/Menta i-Kydmqo-Ngzmamr ons http_s://psychce MusicAll.com/depres juventino/the-cogniti mj-vbiwptgd-dp-d epression#treatm ents http__s://www.ni .nih.gov/healt h/topics/mental- health-medicatio ns http__s://www.na nj.org/About-Men micheline-Illness/Xena tments/Mental-He alth-Medications SSRI/SNRI side effects discussed [...] and importance of compliance http_s://www.nam i.org/About-Ment al-Illness/Menta j-Ogemdw-Pgmrsaz ons http_s://psychce Ob Hospitalist Groupal.com/depres juventino/the-cogniti xo-qhxzfebm-fc-d epression#treatm ents http__s://www.ni .nih.gov/healt h/topics/mental- health-medicatio ns http__s://www.na nj.org/About-Men micheline-Illness/Xena tments/Mental-He alth-Medications SSRI/SNRI side effects discussed [...] Consider referral to a registered dietitian or editor managing newspaper. The CallMD approximate food plate volumes (http_s://www.Optimitive plate.gov) are: Vegetables and fruits should comprise [...] and importance of compliance http_s://www.nam i.org/About-Ment al-Illness/Menta y-Qpvjul-Hdbnsns ons http_s://psychce MusicAll.com/depres juventino/the-cogniti sk-xlvngefg-vv-d epression#treatm ents http__s://www.ni .nih.gov/healt h/topics/mental- health-medicatio ns [...] Consider referral to a registered dietitian or editor managing newspaper. The USDA approximate food plate volumes (http_s://www.Optimitive plate.gov) are: Vegetables and fruits should comprise [...] and importance of compliance http_s://www.nam i.org/About-Ment al-Illness/Menta k-Hqpmqr-Ppmeqyf ons http_s://Netasq.[employer]/depres juventino/the-cogniti zk-kubsebcx-ds-d epression#treatm ents http__s://www.ni .nih.gov/healt h/topics/mental- health-medicatio ns [...] education on serotonin syndrome [facility]. Generalized anxiety disorder - Prozac 40 mg daily stable Discussion Notes continue therapy Patient educated on all medications including potential benefits, side effects, risks. Educated on proper dosing schedule and importance of compliance http_s://www.nam i.org/About-Ment al-Illness/Menta s-Nfrzqt-Silfmak ons http_s://Netasq.[employer]rics/depres juventino/the-cogniti bb-himgoppl-of-d epression#treatm ents http__s://www.ni .nih.gov/healt h/topics/mental- health-medicatio ns [...] Consider referral to a registered dietitian or editor managing newspaper. The USDA approximate food plate volumes (http_s://www.Optimitive plate.gov) are: Vegetables and fruits should comprise [...] and importance of compliance http_s://www.nam i.org/About-Ment al-Illness/Menta a-Lvcuzh-Ywqkrzi ons http_s://psychce [employer]/roxana jauregui/the-cogniti iy-unqkukdu-le-d epression#treatm ents http__s://www.ni .nih.gov/healt h/topics/mental- health-medicatio ns [...] AM, [address], [place], [address], Provider Name:Aura Pearce , 12/25/2024 01:00:00 PM, [address], [address], [place], [address], Provider Name:Eliana Bakari , 12/25/2024 02:15:00 PM, [address], [address], [place], [address], Insurance Providers Payer Name Payer Address Payer Phone Subscriber Number Group Number Insured Name Patient Relationship to Insured Coverage Start Date Coverage End Date [employer] [address] [place] [address] [id number] VICKY SILVERMAN Self - patient is the insured 4 [facility] [address] [place] [address] [id number] VICKY SILVERMAN Self - patient is the [...]
--- OUTSIDE RECORDS SUMMARY | 2024-11-17 16:37 | XMS_ITS | Clinical Summary ---
Author Organization [facility] Address [address] [place] [address] Care Team Providers Care Search Engine Marketing Specialist Name Role Phone Unavailable Primary Care Provider [...] 2) 11/12/2017 INFLUENZA VACCINE (#1) 2024 Insurance [facility] [id number] [place] [id number]
--- NOTE | 2024-11-17 16:50 | ED.FALL ---
HPI - Fall General Chief Complaint: Fall Stated Complaint: fall; right forearm injury Time Seen by Provider: 11/17/24 16:50 Source: patient Mode of arrival: ambulatory Limitations: no limitations History of Present Illness HPI Narrative: 59-year-old female with a history of depression, fibromyalgia, status post spinal fusion tripped on the gas pipe and fell forwards yesterday. She fell on both outstretched upper extremity and hit her forehead on the floor. No loss of consciousness. No headache. No vomiting. no bruising of the forehead. No neck pain. -- Right forearm pain. No wrist or elbow pain. No other injuries noted. MD complaint: fall Onset (ago): day(s) ( One day ago) Fall from: standing Fall witnessed: yes, by bystander Place fall occurred: street Loss of consciousness: none Prolonged down time: no Symptoms prior to fall: none Context: tripped/slipped Location of injury: head Location of injury - extremities: Right: forearm Associated symptoms (after fall): denies Related Data Home Medications ?Medication ?Instructions ?Recorded ?Confirmed ?Last Taken ?Type fluoxetine 40 mg capsule 40 mg PO DAILY 06/12/21 08/16/23 Unknown History mecobalamin (vitamin B12) 5,000 5,000 mcg PO DAILY 06/12/21 08/16/23 Unknown History mcg disintegrating tablet meloxicam 15 mg tablet 15 mg PO DAILY 06/12/21 08/16/23 Unknown History tizanidine 2 mg capsule 2 mg PO TID PRN Pain 06/12/21 08/16/23 Unknown History tramadol 50 mg tablet 50 mg PO Q6H PRN Pain 06/12/21 08/16/23 Unknown History Allergies Allergy/AdvReac Type Severity Reaction Status Date / Time gabapentin Allergy Unknown fatigue Verified 11/17/24 16:38 pregabalin Allergy Unknown fatigue Verified 11/17/24 16:38 Review of Systems Review of Systems: All systems reviewed & are unremarkable except as noted in HPI and below Constitutional: Constitutional: Reports as per HPI Eyes: Eyes: Reports as per HPI and Reports no additional eye complaints ENT: Reports system reviewed and no additional complaints, except as documented and Reports as per HPI Cardiovascular: Cardiovascular: Reports as per HPI and Reports no additional cardiovascular complaints Respiratory: Respiratory: Reports as per HPI and Reports no additional respiratory complaints Gastrointestinal: Gastrointestinal: Reports as per HPI and Reports no additional gastrointestinal complaints Genitourinary: Genitourinary: Reports no additional female genitourinary complaints and Reports as per HPI Musculoskeletal: Comments: right forearm pain. denied wrist or elbow pain no neck or back pain Integumentary/Breasts: Comments: no bruising or abrasions from this fall. Patient has some abrasions of both hands from previous injuries. Neurologic: Reports system reviewed and no additional complaints, except as documented and Reports as per HPI Psychiatric: Psychiatric: Reports no additional psychiatric complaints and Reports as per HPI Endocrine: Endocrine: Reports no additional endocrine complaints and Reports as per HPI Hematologic/Lymphatic: Hematologic/Lymphatic: Reports no additional hematologic/lymphatic complaints and Reports as per HPI Allergic/Immunologic: Allergic/Immunologic: Reports no additional allergic/immunologic complaints and Reports as per HPI PMFSH Past Medical History Medical History Uterus didelphys History of endometriosis History of hysterosalpingogram 2003 History of miscarriage x 2 Chronic pain Depression associated with fibromyalgia Fibromyalgia Surgical History Surgical History Hx of tonsillectomy History of intestinal surgery History of bladder surgery History of dilation and curettage 2005 & 2010 History of back surgery 360 fusion 2001 History of section x 1 Family History Family History Father Carcinoma of colon Mother Depression Hypertension Sibling Hypertension Depression Grandparent Diabetes mellitus Other Family history of coronary artery disease Social History Social History Smoking status: Never smoker Alcohol intake: current Alcohol use details: socially Substance use: never Living arrangements: with family Spiritual care concerns: No Exam Narrative: Vitals are stable. Const: Nutritional Appearance: well nourished Orientation/consciousness: patient oriented x3 Limitations: no limitations HENMT: Head: normal to inspection ( No abrasion /bruising of the forehead) Ears: external ears normal, TM's normal bilaterally and EAC's normal Face/Nose/Sinus: Normal external nose present and Normal nares present Face and sinus: normal facial exam Mouth: Yes Normal oral and palatal mucosa present Throat: posterior oropharynx normal Eyes: Conjunctivae: conjunctivae normal Pupils: Equal, round and reactive pupils present EOM: EOMs intact bilaterally Direct Ophthalmoscopy: no photophobia Neck: Neck: normal visual inspection, no lymphadenopathy and no meningeal signs Other: no spinal tenderness Chest: Chest palpation & inspection: normal inspection of the chest Resp: Effort & Inspection: normal respiratory effort Auscultation: clear to auscultation bilaterally Cardio: Rate: regular rate Rhythm: regular rhythm GI: Auscultation: normal bowel sounds Other: no tenderness/rigidity /rebound. : General: Yes no CVA tenderness Back/Spine/Pelvis: Back: no CVA tenderness Other: No spinal tenderness Skin: General skin exam: normal color Other: no recent bruising/abrasions Neuro: General: patient oriented x3, moves all extremities, no meningeal signs, no focal motor deficits and CN's II-XI intact bilaterally Cranial nerves: Yes Nystagmus not present Speech: normal speech Extrem: General: normal to inspection and no clubbing, cyanosis or edema Other: tenderness of the right forearm. Normal range of motion of right shoulder/ right elbow and right wrist. No wrist tenderness noted bilaterally. Psych: Mental Status: mental status grossly normal Affect: normal affect Attitude: cooperative Course Course Emergency Course: Right forearm pain-- no bony injury appreciated. X-ray did not show any fracture/ dislocation accidental fall head injury-- no loss of consciousness. Subsequently patient has not had any headache, vomiting or any focal deficit. It has been more than 24 hours since the fall. Vital Signs Vital signs: Vital Signs Temperature 36.4 C 11/17/24 16:32 Pulse Rate 82 11/17/24 16:32 Respiratory Rate 16 11/17/24 16:32 Blood Pressure 140/79 11/17/24 16:32 Pulse Oximetry 96 11/17/24 16:32 Oxygen Delivery Room Air 11/17/24 16:32 Temperature 36.4 C 11/17/24 16:32 Pulse Rate 82 11/17/24 16:32 Respiratory Rate 16 11/17/24 16:32 Blood Pressure 140/79 11/17/24 16:32 Pulse Oximetry 96 11/17/24 16:32 Oxygen Delivery Room Air 11/17/24 16:32 MDM - Fall MDM Narrative Medical decision making narrative: accidental fall head injury forearm pain Differential Diagnosis Differential diagnosis: Likely fracture of wrist Medical Records Attestation: I reviewed the patient's medical records. Lab Data Attestation: I reviewed the patient's lab results. Discharge Plan Discharge Clinical Impression: Pain in right forearm Accidental fall Qualifiers: Encounter type: initial encounter Qualified Code(s): W19.XXXA - Unspecified fall, initial encounter Head injury Qualifiers: Encounter type: initial encounter Qualified Code(s): S09.90XA - Unspecified injury of head, initial encounter Patient Disposition: Home Condition: Stable Instructions: Antibiotic Form, Head Injury (ED), Fall Prevention (ED) Patient Language: Irish Prescriptions: No Action fluoxetine 40 mg capsule 40 mg PO DAILY meloxicam 15 mg tablet 15 mg PO DAILY tizanidine 2 mg capsule 2 mg PO TID PRN (Reason: Pain) tramadol 50 mg tablet 50 mg PO Q6H PRN (Reason: Pain) mecobalamin (vitamin B12) 5,000 mcg tablet,disintegrating 5,000 mcg PO DAILY clobetasol 0.05 % cream 1 applic topical BID 14 Days Qty: 30 2RF Follow-up/Referrals: Sukhdev Dean MD [Primary Care Provider, Internal Medicine] Time of Disposition: 17:37
== END 2024-11-17 17:59 | disposition home or self-care (01) ==
PROVIDERS: Emergency Provider Internal Medicine Critical Care Medicine; PCP Internal Medicine
DX: S09.90XA Unspecified injury of head, initial encounter (principal); M79.631 Pain in right forearm; W01.0XXA Fall on same level from slipping, tripping and stumbling without subsequent striking against object, initial encounter
CPT/HCPCS: 73090; 99283

== ENCOUNTER 2025-01-03 10:17 | Outpatient (CLI) | payer MEDICARE, SELFPAY ==
--- NOTE | ~2025-01-03 | MM_ITS ---
EXAMINATION: MM screening petty BI w radhika HISTORY: Screening TECHNIQUE: Craniocaudal and mediolateral oblique 3-D tomosynthesis images were obtained and synthetic 2-D images were generated. CAD analysis was submitted and interpreted. COMPARISON: Comparison to multiple prior studies sequentially, with oldest reviewed study dated , 11/02/2017 BREAST PARENCHYMAL COMPOSITION: The breasts are heterogeneously dense, which may obscure small masses. FINDINGS: There is no evidence of suspicious mass, calcification, or architectural distortion to suggest malignancy in either breast. IMPRESSION: 1. No mammographic evidence of malignancy. 2. Recommend routine screening mammography in one year. BI-RADS Category 1: Negative Reviewed, dictated and finalized at location B.
== END 2025-01-03 10:18 | disposition home or self-care (01) ==
PROVIDERS: PCP Obstetrics & Gynecology; Visit Provider Obstetrics & Gynecology
DX: Z12.31 Encounter for screening mammogram for malignant neoplasm of breast (principal)
CPT/HCPCS: 77063; 77067